=== PATIENT | female | born 1965 | race Two or more races ===

== ENCOUNTER 2020-11-23 14:02 | Outpatient (REF) | payer MEDICAID, SELFPAY ==
[2020-11-23 16:16] LABS: MANUAL DIFF FLAG NO
[2020-11-23 16:21] LABS: Basophils Absolute Auto 0.1 X10*3/uL (0.0-0.2); Basophils Percent Auto 0.6 % (0-2); Eosinophils Absolute Auto 0.2 X10*3/uL (0.0-0.4); Eosinophils Percent Auto 1.6 % (0-4); Hemoglobin 15.3 g/dl (12.0-16.0); Imm Gran Abs Auto 0.04 X10*3/uL (0.00-0.03); Imm Gran Pct Auto 0.4 % (0.0-0.4); Lymphocytes Absolute Auto 3.4 X10*3/uL (1.2-4.9); Lymphocytes Percent Auto 32.3 % (20-40); Mean Corpuscular HGB Conc 33.3 g/dl (31.0-35.0); Mean Corpuscular Hemoglobin 30.5 pg (27.0-33.0); Mean Corpuscular Volume 91.8 fL (80-98); Mean Platelet Volume 10.2 fL (9.4-12.3); Monocytes Absolute Auto 0.5 X10*3/uL (0.1-1.2); Monocytes Percent Auto 5.1 % (2-11); Neutrophils Absolute Auto 6.4 X10*3/uL (2.0-8.3); Platelet Count 340 X10*3/uL (160-400); Red Blood Count 5.01 X10*6/uL (4.20-5.50); Red Cell Distribution Width 12.7 % (11.0-16.0); White Blood Count 10.6 X10*3/uL (4.8-10.8)
[2020-11-23 16:46] LABS: Alanine Aminotransferase 15 U/L (0-31); Albumin Level 4.8 g/dL (3.5-5.0); Alkaline Phosphatase 69 U/L (39-117); Anion Gap 15 (12-20); Aspartate Amino Transferase 15 U/L (5-31); Bilirubin Total 0.7 mg/dL (0.0-1.0); Blood Urea Nitrogen 16 mg/dL (9-16); Calcium 10.4 mg/dL (8.4-10.2); Carbon Dioxide 26 mmol/L (22-29); Chloride 103 mmol/L (96-108); Estimated Glomerular Filt Rate > 60; Glucose Random 90 mg/dL (60-115); Potassium 4.9 mmol/L (3.3-5.1); Sodium 139 mmol/L (135-145); Total Protein 7.7 g/dL (6.5-8.0)
[2020-11-23 17:09] LABS: Thyroid Stimulating Hormone 0.57 uIU/mL (0.32-4.0)
[2020-11-23 18:19] LABS: Erythrocyte Sedimentation Rate 7 MM/HR (0-20)
[2020-11-24 13:26] LABS: Transglutaminase IgA 1 U/mL
[2020-11-29 14:02] LABS: Endomysial IgA Antibody Negative (Negative)
== END 2020-11-23 14:03 | disposition home or self-care (01) ==
LOC: HO.LAB 14:02
PROVIDERS: PCP Family Medicine; Visit Provider Physician Assistant
DX: K52.9 Noninfective gastroenteritis and colitis, unspecified (principal); R10.13 Epigastric pain; K59.09 Other constipation; R74.01 Elevation of levels of liver transaminase levels; A04.8 Other specified bacterial intestinal infections; I10 Essential (primary) hypertension; F32.9 Major depressive disorder, single episode, unspecified; Z88.6 Allergy status to analgesic agent; Z88.5 Allergy status to narcotic agent; Z79.899 Other long term (current) drug therapy
CPT/HCPCS: 36415; 80053; 83516; 84443; 85025; 85652; 86140; 86255; 86256; 99212

== ENCOUNTER 2020-11-23 15:20 | Outpatient (REF) | payer MEDICAID, SELFPAY ==
[2020-11-24 14:37] LABS: H Pylori Breath Test DETECTED (NOT DETECTED)
== END 2020-11-23 15:21 | disposition home or self-care (01) ==
LOC: HO.LNP 15:20
PROVIDERS: Visit Provider Physician Assistant
DX: A04.8 Other specified bacterial intestinal infections (principal)
CPT/HCPCS: 83013

== ENCOUNTER 2020-12-06 11:11 | Emergency (ER) | payer MEDICAID, SELFPAY ==
--- NOTE | ~2020-12-06 | XR_ITS ---
EXAMINATION: XR CHEST CLINICAL INFORMATION: Chest pain COMPARISON: Chest radiographs 03/21/2015, 02/24/2015 TECHNIQUE: 2 views of the chest were obtained. FINDINGS: The lungs are clear. The vascularity is normal. There is no pneumothorax or pleural reaction. No infiltrate or groundglass opacity. The costophrenic sulci are clear. The heart is normal in size. The hilar and mediastinal contours and bony structures are unremarkable. XR/XR chest 2V IMPRESSION: Unremarkable examination.
[2020-12-06 11:17] VITALS: BP 150/70; BP 153/66; PULSE 53; PULSE 60; RESP 18; TEMP 36.8; O2SAT 100; O2SAT 99; BMI 24.7
--- NOTE | 2020-12-06 11:28 | ECG_ITS ---
Test Reason : NAUSEA Blood Pressure : / mmHG Vent. Rate : 066 BPM Atrial Rate : 066 BPM P-R Int : 000 ms QRS Dur : 074 ms QT Int : 404 ms P-R-T Axes : 000 029 032 degrees QTc Int : 423 ms Normal sinus rhythm normal ecg When compared with ECG of 19-MAY-2019 15:25, No significant changes seen Referred By: Jr Woo Electronically Signed By:Papo Johnson
--- NOTE | 2020-12-06 11:30 | ED.GENADULT ---
HPI - General Adult General Chief complaint: Nausea/Vomiting/Diarrhea Stated complaint: N/V/D X'S 3 DAYS, NO CONCERN FOR COVID PER EMS Time Seen by Provider: 12/06/20 11:27 Source: patient Mode of arrival: EMS Limitations: no limitations History of Present Illness HPI narrative: 55-year-old female who presents emergency department for evaluation nausea, vomiting, diarrhea, chest pain and abdominal pain. Patient states that her symptoms began on Saturday, 4 days prior to arrival. She states that she has had multiple episodes of diarrhea per day, greater than 20. The diarrhea is watery and she has not noticed any blood in the diarrhea. She states she has had multiple episodes of vomiting, greater than 15, with no blood in the emesis. She states that she is feeling weak, lightheaded and dizzy. The patient is having diffuse, sharp, burning, constant abdominal pain which is 10/10. She also states she has been getting mild to moderate, intermittent, mid sternal chest pain which does not change with breathing or with movement. She denied fever, chills, frequency, urgency or dysuria. The patient states that she gets these episodes frequently and states she was here in the emergency department 1 week prior however I do not see this record. She states that she applies capsaicin cream to her abdomen which seems to improve her pain. She states she is out of capsaicin cream. The patient did have a GI office visit on 11/23/2020 which states that she had a colonoscopy for half years prior and has a history of gastritis. She has also had H pylori in the past. Related Data Home Medications Medication Instructions Recorded Confirmed atenolol 50 mg tablet 50 mg PO DAILY 11/23/20 11/23/20 bupropion HCl 100 mg tablet 100 mg PO BID 11/23/20 11/23/20 clonazepam 2 mg tablet 2 mg PO BID 11/23/20 11/23/20 quetiapine 400 mg tablet,extended 400 mg PO BEDTIME 11/23/20 11/23/20 release 24 hr Previous Rx's Medication Instructions Recorded bisacodyl 5 mg tablet,delayed 10 mg PO ONCE 1 Days #2 tab 11/23/20 release omeprazole 20 mg capsule,delayed 20 mg PO DAILY #30 cap 11/23/20 release polyethylene glycol 3350 17 238 g PO ONCE 1 Days #238 g 02/24/21 gram/dose oral powder sucralfate 100 mg/mL oral 10 ml PO BID #420 ml 11/23/20 suspension capsaicin 1 appl TOPICAL TID #60 g 12/06/20 Allergies Allergy/AdvReac Type Severity Reaction Status Date / Time ibuprofen [IBUPROFEN] Allergy Severe ANAPHYLAXIS, Verified 11/23/20 14:09 throat swelling aspirin [ASA] Allergy Unknown UNKNOWN, Verified 11/23/20 14:09 throat swelling zolpidem [From AMBIEN] Allergy Unknown RASH, HIVES Verified 11/23/20 14:09 Review of Systems Review of Systems: Yes all other systems are reviewed and are negative [facility] Past Medical History Medical History (Updated 12/06/20 @ 15:18 by Jr Woo MD) Chronic diarrhea Depression Epigastric pain HTN (hypertension) Surgical History H/O tubal ligation History of appendectomy History of hand surgery Family History Family History (Updated 11/23/20 @ 14:14 by Sera Hollins CMA) Father Cancer Mother H/O: hysterectomy Daughter H/O: hysterectomy Paternal Grandfather Stomach cancer Social History Social History (Updated 11/23/20 @ 14:15 by Sera Hollins CMA) Household Members: None Alcohol intake: never Smoking Status: Never smoker Smoked in Last 30 Days: No Use of substances other than those prescribed or required for medical reasons: No Advance Directives: No Advance Directives Information Provided: No Current occupational status: disabled Physical Exam Vital Signs: Vital Signs: Last Vital Signs Temp 99.2 F 12/06/20 12:23 Pulse 60 12/06/20 12:23 Resp 18 12/06/20 12:23 BP 120/53 L 12/06/20 12:23 Pulse Ox 99 12/06/20 12:23 Body Mass Index 24.7 Const: General: cooperative, healthy appearing and in distress (Secondary to abdominal pain) Orientation/consciousness: oriented to person and oriented to place Limitations: no limitations HENMT: Head: Yes normal to inspection, Yes normocephalic and Yes atraumatic Ears: external ears normal General nose exam: Normal external nose present Face and sinus: Yes normal facial exam Mouth: Normal oral and palatal mucosa present Throat: Yes posterior oropharynx normal Eyes: Periorbital: periorbital findings normal Eyelids: Yes eyelids normal Conjunctivae: conjunctivae normal Sclerae: sclerae normal Corneas: corneas normal Pupils: Equal, round and reactive pupils present Direct Ophthalmoscopy: normal light reflex Neck: Neck: Yes full ROM, Yes no lymphadenopathy, Yes no meningeal signs, Yes trachea midline and Yes supple Chest: Chest palpation & inspection: normal inspection of the chest and normal palpation of entire chest wall Resp: Effort & Inspection: normal respiratory effort and able to speak in complete sentences Auscultation: clear to auscultation bilaterally Cardio: Rate: regular rate Rhythm: regular rhythm Heart sounds: S1 normal heart sound present, S2 normal heart sound present and no murmurs GI: Inspection: Yes normal to inspection Palpation (GI): Soft to palpation, Tenderness to palpation present (GI) other (Moderate diffuse tenderness), no guarding, not rigid and No hepatosplenomegaly present Auscultation: normal bowel sounds : General: Yes no CVA tenderness Back/Spine/Pelvis: Back: no CVA tenderness Cervical Spine: normal cervical lordosis Thoracic/Lumbar Spine: thoracic and lumbar spine normal to inspection Skin: Lesions: no lesions Rashes: no rashes Wounds: no wounds Neuro: General: oriented to person, oriented to place and no meningeal signs Cranial nerves: Yes CN's II-XII intact bilaterally and Yes Equal, round and reactive pupils present Cognition (Neuro): normal cognition Motor exam (neuro): 5/5 motor strength present throughout Extrem: General: Yes normal to inspection and Yes full ROM Psych: Appearance: well kempt Mental Status: mental status grossly normal Speech and movement: Normal speech and movement present Affect: normal affect Attitude: cooperative Thought process: Normal thought process present Thought content: Normal thought content present Course Course Course Narrative: 55-year-old female who presents emergency department for evaluation abdominal pain, frequent episodes of diarrhea and vomiting x4 days, patient may have had similar presentations in the past and treats herself with capsaicin cream to her abdominal wall. The patient has had GI follow-up and was seen on 11/23/2019. The patient did have an H pylori breath test from that date which is positive the patient has not been treated yet. On physical examination, the patient does appear to be in distress secondary to abdominal discomfort. She has diffuse abdominal pain otherwise exam is unremarkable. I ordered a CBC, CMP, lipase, COVID test, C difficile test and stool culture on the patient. Patient was ordered to get normal saline IV x1 L. I also ordered morphine 4 mg IV for her pain and, Reglan 10 mg IV, Benadryl 25 mg IV for her nausea and vomiting. 1513: The patient's laboratory evaluation [place] [address], high chloride of 109 and a low bicarb of 21 otherwise was unremarkable. The patient's COVID test was negative. Chest x-ray was normal. The patient was not able to give us a stool sample for testing. The patient is feeling better after the above treatment and wants to go home. The patient will be given a refill for her capsaicin cream to see if this helps her abdominal pain and vomiting. She will continue to take her Zofran as prescribed by her PCP. I did tell her that her H pylori is positive again and she should discuss with her PCP the need for retreatment . Medical Decision Making Lab Data Result diagrams: 12/06/20 11:50 12/06/20 11:50 Labs: Lab Results 12/06/20 12/06/20 12/06/20 Range/Units 11:50 11:50 11:50 WBC 14.5 H (4.8-10.8) X10*3/uL RBC 4.87 (4.20-5.50) X10*6/uL Hgb 14.8 (12.0-16.0) g/dl Hct 44.3 (37-47) % MCV 91.0 (80-98) fL MCH 30.4 (27.0-33.0) pg MCHC 33.4 (31.0-35.0) g/dl RDW 12.6 (11.0-16.0) % Plt Count 320 (160-400) X10*3/uL MPV 10.2 (9.4-12.3) fL Immature Gran % (Auto) 0.4 (0.0-0.4) % Neut % (Auto) 68.9 (45-73) % Lymph % (Auto) 26.2 (20-40) % [place] % (Auto) 4.1 (2-11) % Eos % (Auto) 0.1 (0-4) % Baso % (Auto) 0.3 (0-2) % Lymph # (Auto) 3.8 (1.2-4.9) X10*3/uL [place] # (Auto) 0.6 (0.1-1.2) X10*3/uL Eos # (Auto) 0.0 (0.0-0.4) X10*3/uL Baso # (Auto) 0.0 (0.0-0.2) X10*3/uL Abs Immat Gran (auto) 0.06 H (0.00-0.03) X10*3/uL Absolute Neuts (auto) 10.0 H (2.0-8.3) X10*3/uL Absolute Nucleated RBC 0.000 (0.0-0.012) X10*3/uL Nucleated RBC % (auto) 0.0 (0.0-0.2) /100WBC Sodium 140 (135-145) mmol/L Potassium 4.3 (3.3-5.1) mmol/L Chloride 109 H (96-108) mmol/L Carbon Dioxide 21 L (22-29) mmol/L Anion Gap 14 (12-20) BUN 15 (9-16) mg/dL Creatinine 0.91 (0.5-1.4) mg/dL Estim Creat Clear Calc 63.4 Estimated GFR > 60 Random Glucose 108 (60-115) mg/dL Calcium 9.4 D (8.4-10.2) mg/dL Total Bilirubin 0.5 (0.0-1.0) mg/dL AST 15 (5-31) U/L ALT 14 (0-31) U/L Alkaline Phosphatase 66 (39-117) U/L Troponin I High Sens < 3.5 (<3.5-17.0) ng/L Total Protein 7.1 (6.5-8.0) g/dL Albumin 4.6 (3.5-5.0) g/dL Lipase 27 (8-78) U/L Urine Color Urine Appearance Urine pH (5.0-8.0) Ur Specific [place] (1.005-1.025) Urine Protein (NEG-TRACE) MG/DL Urine Glucose (UA) (NEG) MG/DL Urine Ketones (NEG) MG/DL Urine Blood (NEG) Urine Nitrite (NEG) Ur Leukocyte Esterase (NEG) Urine RBC (0) /HPF Urine WBC (0-4) /HPF Ur Squamous Epith Cells /LPF Amorphous Sediment /LPF Urine Bacteria /LPF COVID-19 (BRENDA) (Negative) COVID-19 Clin Com 12/06/20 12/06/20 Range/Units 11:50 11:53 WBC (4.8-10.8) X10*3/uL RBC (4.20-5.50) X10*6/uL Hgb (12.0-16.0) g/dl Hct (37-47) % MCV (80-98) fL MCH (27.0-33.0) pg MCHC (31.0-35.0) g/dl RDW (11.0-16.0) % Plt Count (160-400) X10*3/uL MPV (9.4-12.3) fL Immature Gran % (Auto) (0.0-0.4) % Neut % (Auto) (45-73) % Lymph % (Auto) (20-40) % [place] % (Auto) (2-11) % Eos % (Auto) (0-4) % Baso % (Auto) (0-2) % Lymph # (Auto) (1.2-4.9) X10*3/uL [place] # (Auto) (0.1-1.2) X10*3/uL Eos # (Auto) (0.0-0.4) X10*3/uL Baso # (Auto) (0.0-0.2) X10*3/uL Abs Immat Gran (auto) (0.00-0.03) X10*3/uL Absolute Neuts (auto) (2.0-8.3) X10*3/uL Absolute Nucleated RBC (0.0-0.012) X10*3/uL Nucleated RBC % (auto) (0.0-0.2) /100WBC Sodium (135-145) mmol/L Potassium (3.3-5.1) mmol/L Chloride (96-108) mmol/L Carbon Dioxide (22-29) mmol/L Anion Gap (12-20) BUN (9-16) mg/dL Creatinine (0.5-1.4) mg/dL Estim Creat Clear Calc Estimated GFR Random Glucose (60-115) mg/dL Calcium (8.4-10.2) mg/dL Total Bilirubin (0.0-1.0) mg/dL AST (5-31) U/L ALT (0-31) U/L Alkaline Phosphatase (39-117) U/L Troponin I High Sens (<3.5-17.0) ng/L Total Protein (6.5-8.0) g/dL Albumin (3.5-5.0) g/dL Lipase (8-78) U/L Urine Color YELLOW Urine Appearance CLOUDY Urine pH 5.0 (5.0-8.0) Ur Specific [place] >= 1.030 H (1.005-1.025) Urine Protein TRACE (NEG-TRACE) MG/DL Urine Glucose (UA) NEG (NEG) MG/DL Urine Ketones NEG (NEG) MG/DL Urine Blood 3+ H (NEG) Urine Nitrite NEG (NEG) Ur Leukocyte Esterase NEG (NEG) Urine RBC 10-14 H (0) /HPF Urine WBC 0 (0-4) /HPF Ur Squamous Epith Cells NONE /LPF Amorphous Sediment 3+ /LPF Urine Bacteria NONE /LPF COVID-19 (BRENDA) Negative (Negative) COVID-19 Clin Com See Note Discharge Plan Discharge Clinical Impression: Abdominal pain Qualifiers: Abdominal location: generalized Qualified Code(s): R10.84 - Generalized abdominal pain Vomiting Qualifiers: Vomiting type: unspecified Vomiting Intractability: non-intractable Nausea presence: with nausea Qualified Code(s): R11.2 - Nausea with vomiting, unspecified Diarrhea Qualifiers: Diarrhea type: unspecified type Qualified Code(s): R19.7 - Diarrhea, unspecified Patient Disposition: Home, Self-Care Instructions: Abdominal Pain (ED) Additional Instructions: Your blood work did reveal an elevated white blood cell count but otherwise was unremarkable. Continue to use your Zofran as prescribed by your doctor. I did represcribed the capsaicin cream, apply this to your abdomen 3 to 4 times a day to see if this improves your pain and her nausea and vomiting. Follow-up with your doctor in 2 days. Please return to the emergency department if your symptoms get worse or if you develop any symptoms that are concerning to you. Prescriptions: New capsaicin 0.025 % cream 1 appl topical TID Qty: 60 RF: 0 No Action atenolol 50 mg tablet 50 mg PO DAILY RF: 0 clonazepam 2 mg tablet 2 mg PO BID RF: 0 bupropion HCl 100 mg tablet 100 mg PO BID RF: 0 quetiapine [Seroquel XR] 400 mg tablet extended release 24 hr 400 mg PO BEDTIME RF: 0 polyethylene glycol 3350 [Miralax] 17 gram/dose powder 238 g PO ONCE 1 Days Qty: 238 RF: 0 bisacodyl [Dulcolax (bisacodyl)] 5 mg tablet,delayed release (DR/EC) 10 mg PO ONCE 1 Days Qty: 2 RF: 0 omeprazole 20 mg capsule,delayed release(DR/EC) 20 mg PO DAILY Qty: 30 RF: 5 sucralfate [Carafate] 100 mg/mL suspension 10 ml PO BID Qty: 420 RF: 0
[2020-12-06] MEDS: 0.9 % Sodium Chloride 1,000 ML 999 ML IV (11:37)
[2020-12-06 12:08] LABS: MANUAL DIFF FLAG NO
[2020-12-06 12:13] LABS: Basophils Percent Auto 0.3 % (0-2); Eosinophils Percent Auto 0.1 % (0-4); Hematocrit 44.3 % (37-47); Hemoglobin 14.8 g/dl (12.0-16.0); Imm Gran Abs Auto 0.06 X10*3/uL (0.00-0.03); Imm Gran Pct Auto 0.4 % (0.0-0.4); Lymphocytes Absolute Auto 3.8 X10*3/uL (1.2-4.9); Lymphocytes Percent Auto 26.2 % (20-40); Mean Corpuscular HGB Conc 33.4 g/dl (31.0-35.0); Mean Corpuscular Hemoglobin 30.4 pg (27.0-33.0); Mean Platelet Volume 10.2 fL (9.4-12.3); Monocytes Absolute Auto 0.6 X10*3/uL (0.1-1.2); Monocytes Percent Auto 4.1 % (2-11); Neutrophils Percent Auto 68.9 % (45-73); Platelet Count 320 X10*3/uL (160-400); Red Blood Count 4.87 X10*6/uL (4.20-5.50); Red Cell Distribution Width 12.6 % (11.0-16.0); White Blood Count 14.5 X10*3/uL (4.8-10.8)
[2020-12-06] MEDS: diphenhydrAMINE HCL 50 MG/ML VIAL 25 MG IVPUSH (12:19)
[2020-12-06] MEDS: Morphine Sulfate 4 MG/ML CARTRIDGE IVPUSH (12:19)
[2020-12-06] MEDS: Metoclopramide HCl 10 MG/2 ML VIAL IVPUSH (12:19)
[2020-12-06 12:21] LABS: Glucose Urine UA NEG (NEG); Leukocyte Esterase Urine NEG (NEG); Nitrite Urine NEG (NEG); Specific Gravity - Urine >= 1.030 (1.005-1.025); Urine Blood 3+ (NEG); Urine Ketones NEG (NEG); Urine Protein TRACE MG/DL (NEG-TRACE)
[2020-12-06 12:23] VITALS: BP 120/53; PULSE 60; RESP 18; TEMP 37.3; O2SAT 99
[2020-12-06 12:23] LABS: Appearance Urine CLOUDY; Color Urine YELLOW
[2020-12-06 12:36] LABS: Alanine Aminotransferase 14 U/L (0-31); Albumin Level 4.6 g/dL (3.5-5.0); Alkaline Phosphatase 66 U/L (39-117); Aspartate Amino Transferase 15 U/L (5-31); Bilirubin Total 0.5 mg/dL (0.0-1.0); Blood Urea Nitrogen 15 mg/dL (9-16); Calcium 9.4 mg/dL (8.4-10.2); Creatinine Clr Calc Pharmacy 63.4; Estimated Glomerular Filt Rate > 60; Glucose Random 108 mg/dL (60-115); Lipase 27 U/L (8-78); Total Protein 7.1 g/dL (6.5-8.0)
[2020-12-06 12:40] LABS: COVID-19 Test Negative (Negative); IDNOW Serial# 9DD0AD1C
[2020-12-06 12:41] LABS: Troponin-I High Sensitivity < 3.5 ng/L (<3.5-17.0)
[2020-12-06 12:46] LABS: Amorphous Sediment Urine 3+ /LPF; WBC Urine 0 /HPF (0-4)
[2020-12-06 13:15] LABS: Anion Gap 14 (12-20); Carbon Dioxide 21 mmol/L (22-29); Chloride 109 mmol/L (96-108); Potassium 4.3 mmol/L (3.3-5.1); Sodium 140 mmol/L (135-145)
--- NOTE | 2020-12-06 13:37 | PC.NURSE ---
reports feeling better after medications. no longer dry heaving. has not had a BM for sample. MD is aware of need for reeval. Skin pwd. diffuse abd pain is resolving.
== END 2020-12-06 15:52 | disposition home or self-care (01) ==
PROVIDERS: Emergency Provider Emergency Medicine Emergency Medical Services; PCP Family Medicine
DX: R10.84 Generalized abdominal pain (principal); R19.7 Diarrhea, unspecified; R11.2 Nausea with vomiting, unspecified; Z20.822 Contact with and (suspected) exposure to COVID-19
CPT/HCPCS: 36415; 71046; 80053; 81001; 83690; 84484; 85025; 87635; 93005; 96365; 96375; 99284; J1200; J2270; J2765

== ENCOUNTER 2020-12-07 16:32 | Outpatient (REF) | payer MEDICAID, SELFPAY ==
[2020-12-07 17:20] LABS: Leukocytes Stool Qualitative NEGATIVE (NEGATIVE)
[2020-12-08 09:23] LABS: CDIFF Ag Negative (Negative); CDIFF Internal ctrl Dots and bkg OK (V); CDiff Toxin Negative (Negative)
[2020-12-13 20:17] LABS: Calprotectin, Fecal 40 mcg/g
== END 2020-12-07 16:33 | disposition home or self-care (01) ==
LOC: HO.LNP 16:32
PROVIDERS: Visit Provider Physician Assistant
DX: R19.7 Diarrhea, unspecified (principal)
CPT/HCPCS: 83993; 87045; 87046; 87324; 87329; 87449; 89055

== ENCOUNTER → 2020-12-08 07:31 | Outpatient (BNVA) | payer MEDICAID, SELFPAY | PROVIDERS: Visit Provider Physician Assistant | DX: R10.13 Epigastric pain (principal); R11.2 Nausea with vomiting, unspecified; K52.9 Noninfective gastroenteritis and colitis, unspecified; A04.8 Other specified bacterial intestinal infections | CPT/HCPCS: 99212 ==

== ENCOUNTER 2020-12-20 11:42 | Outpatient (REF) | payer MEDICAID, SELFPAY ==
--- NOTE | ~2020-12-20 | MM_ITS ---
EXAMINATION: MM SCREENING DIGITAL BREAST TOMOSYNTHESIS, BILATERAL CLINICAL INFORMATION: Screening. Asymptomatic. The lifetime risk of breast cancer based on the Tyrer-Cuzick Model is 9%. COMPARISON: Mammography: 12/15/2019, 09/10/2018, 08/29/2018, 03/27/2017 TECHNIQUE: Digital breast tomosynthesis is performed in both the craniocaudal and mediolateral oblique views along with computer-aided detection (CAD). Synthesized 2D images are generated from the tomosynthesis. FINDINGS: There are scattered areas of fibroglandular density (ACR BI-RADS breast composition Category b). There are no significant masses, abnormal calcifications, or other abnormalities. The axilla and skin contours are unremarkable. No significant changes. MM/MM tomosynthesis screening BI IMPRESSION: No mammographic evidence of malignancy. ASSESSMENT: BI-RADS 1: Negative RECOMMENDATION: Routine annual mammography screening. This patient's information was entered into a reminder system with a target due date for their next mammogram.
== END 2020-12-20 11:43 | disposition home or self-care (01) ==
LOC: HO.MAMMO 11:42
PROVIDERS: PCP Family Medicine; Visit Provider Family Medicine
DX: Z12.31 Encounter for screening mammogram for malignant neoplasm of breast (principal)
CPT/HCPCS: 77063; 77067

== ENCOUNTER 2020-12-28 09:33 | Day surgery (SDC) | payer MEDICAID, SELFPAY ==
[2020-12-23 10:09] VITALS: BMI 23.4
--- NOTE | 2020-12-27 08:28 | HO.ANESPROP2 ---
Documented by User: Jaja Alvarado 12/27/20 08:29 HPI - Anesthesia Eval Consult details Narrative: 55yo F for Upper Endoscopy and Colonoscopy PMFSH Active Problems Active Problems: All Active Problems (Updated 12/23/20 @ 10:05 by Malka Ruiz) Nausea and vomiting (Acute) H. pylori infection (Acute) Depression (Acute) HTN (hypertension) (Acute) Epigastric pain (Acute) Chronic diarrhea (Acute) Past Medical History Medical History Anxiety Chronic diarrhea Depression Epigastric pain HTN (hypertension) Family History Family History (Updated 11/23/20 @ 14:14 by Sera Hollins CMA) Father Cancer Mother H/O: hysterectomy Daughter H/O: hysterectomy Paternal Grandfather Stomach cancer Surgical History Surgical History H/O tubal ligation History of appendectomy History of carpal tunnel release of both wrists Social History Social History (Updated 12/23/20 @ 10:06 by Malka Ruiz) Household Members: None Smoking Status: Former smoker Smoking Quit Date: 2009 Use of substances other than those prescribed or required for medical reasons: No Advance Directives: No Advance Directives Information Provided: No Advance Directives on File: No Current occupational status: disabled Meds Allergies Allergy/AdvReac Type Severity Reaction Status Date / Time aspirin [ASA] Allergy Severe Anaphylaxis Verified 12/23/20 10:07 ibuprofen [IBUPROFEN] Allergy Severe ANAPHYLAXIS, Verified 12/23/20 10:07 throat swelling zolpidem [From AMBIEN] Allergy Intermediate RASH, HIVES Verified 12/23/20 10:07 Home Medications Medication Instructions Recorded Confirmed Last Taken Type clonazepam 2 mg tablet 2 mg PO BID 11/23/20 12/23/20 Unknown History quetiapine 400 mg tablet,extended 400 mg PO BEDTIME 11/23/20 12/23/20 Unknown History release 24 hr atenolol 1 tab PO DAILY 12/23/20 12/28/20 12/28/20 08:00 History Exam Exam Date and Time: December 27, 2020 0828 Height,Weight and Vital Signs: Height 5 ft Weight 54.431 kg Pertinent Lab Results Pertinent Lab Results: Laboratory Tests 12/06/20 12/06/20 11:50 11:50 WBC 14.5 H Hgb 14.8 Hct 44.3 Plt Count 320 Sodium 140 Potassium 4.3 Chloride 109 H Carbon Dioxide 21 L BUN 15 Creatinine 0.91 Narrative Narrative: EKG 11/2020 Vent. Rate : 066 BPM Atrial Rate : 066 BPM P-R Int : 000 ms QRS Dur : 074 ms QT Int : 404 ms P-R-T Axes : 000 029 032 degrees QTc Int : 423 ms Normal sinus rhythm normal ecg When compared with ECG of 19-MAY-2019 15:25, No significant changes seen Assessment and Plan Assessment Anesthesia Assessment: Chart Reviewed Documented by User: Margie Trujillo 12/28/20 10:14 [facility] Past Medical History Medical History Anxiety Chronic diarrhea Depression Epigastric pain HTN (hypertension) Family History Family History (Updated 11/23/20 @ 14:14 by Sera Hollins CMA) Father Cancer Mother H/O: hysterectomy Daughter H/O: hysterectomy Paternal Grandfather Stomach cancer Surgical History Surgical History H/O tubal ligation History of appendectomy History of carpal tunnel release of both wrists Social History Social History (Updated 12/23/20 @ 10:06 by Malka Ruiz) Household Members: None Smoking Status: Former smoker Smoking Quit Date: 2009 Use of substances other than those prescribed or required for medical reasons: No Advance Directives: No Advance Directives Information Provided: No Advance Directives on File: No Current occupational status: disabled Meds Allergies Allergy/AdvReac Type Severity Reaction Status Date / Time aspirin [ASA] Allergy Severe Anaphylaxis Verified 12/23/20 10:07 ibuprofen [IBUPROFEN] Allergy Severe ANAPHYLAXIS, Verified 12/23/20 10:07 throat swelling zolpidem [From AMBIEN] Allergy Intermediate RASH, HIVES Verified 12/23/20 10:07 Home Medications Medication Instructions Recorded Confirmed Last Taken Type clonazepam 2 mg tablet 2 mg PO BID 11/23/20 12/23/20 Unknown History quetiapine 400 mg tablet,extended 400 mg PO BEDTIME 11/23/20 12/23/20 Unknown History release 24 hr atenolol 1 tab PO DAILY 12/23/20 12/28/20 12/28/20 08:00 History Exam Airway Mallampati Class: III TM Dist: >3cm Neck ROM: Full Denture: Upper Heart: RrR Lungs: CTA Bl Assessment and Plan Assessment Anesthesia Assessment: Anesthesia Plan Discussed and Chart Reviewed Final Anesthetic Review NPO: Yes (Sip water with meds) ASA Class: II Final Preanesthetic Review: No Changes in Pt Med Stat and Consent Obtained/Reviewed Patient Risk: Intermediate Procedure Risk: Intermediate Anesthetic Plan Anesthetic Plan: MAC: Disposition: Standard PACU
[2020-12-28 09:59] VITALS: BP 134/66; PULSE 56; RESP 16; TEMP 35.9; O2SAT 99
[2020-12-28] MEDS: Lactated Ringers 1,000 ML 100 ML IVCONT (10:05)
--- NOTE | 2020-12-28 10:14 | MHC.SHP ---
Pre-Procedural Eval Section B Chief Complaint: Chronic Diarrhea, Epigastric Pain Relevant Family History (Specify if Yes): No Relevant Social History: None Present Medications: see Short Stay Collaborative assessment Medical History: Significant History (Anxiety Chronic diarrhea Depression Epigastric pain HTN (hypertension)) History of Previous Operations: Relevant previous surgery/procedure and date(s) (appendectomy, carpal tunnel release) Allergies: Allergies Allergy/AdvReac Type Severity Reaction Status Date / Time aspirin [ASA] Allergy Severe Anaphylaxis Verified 12/23/20 10:07 ibuprofen [IBUPROFEN] Allergy Severe ANAPHYLAXIS, Verified 12/23/20 10:07 throat swelling zolpidem [From AMBIEN] Allergy Intermediate RASH, HIVES Verified 12/23/20 10:07 Review of Systems Sugical H&P ROS: Negative: Constitution, Cardiovascular, Respiratory, Neurological, Psychiatric, Hem-Onc, Allergic/Immunologic, Gastrointestinal, Genitourinary, Musculoskeletal, Integumentary, Endocrine and Eyes/Ears/Nose/Throat Exam Surgical H&P Exam: Normal: HEENT, Normal: Heart, Normal: Lungs, Normal: Extremities, Normal: Abdomen, Normal: Skin and Normal: Neurological Plan Diagnosis/Plan: Unchanged I have reviewed the history and physical and performed a pertinent physical examination on my patient. No changes have occurred unless specified.
--- NOTE | 2020-12-28 10:43 | PM.OP ---
Brief Operative Note Date of Service: 12/28/20 Pre-op diagnosis: diarrhea, epigastric pain Post-op diagnosis: same Procedure: see op note Surgeon: Karine Quinonez MD Anesthesia: MAC Estimated blood loss (mL): 0 Condition: stable Disposition: PACU
--- NOTE | 2020-12-28 10:44 | P.OP_ITS ---
Operative Note Operative Note Date of Service: 12/28/20 Narrative: Operative Information Procedure Description: EGD, Colonoscopy FLEXIBLE TRANSORAL UPPER GASTROINTESTINAL ENDOSCOPY AND COLONOSCOPY PROCEDURE NOTE UPPER ENDOSCOPY Consent: Indications for the procedure and potential complications of bleeding, perforation, reaction to medications and missed diagnosis were discussed with the patient and informed consent was obtained. Instrument: Olympus GIF H 190 J mid size upper endoscope Monitoring: Vital signs and clinical assessment, continuous EKG monitoring, Pulse oximetry, Carbon Dioxide monitoring and blood pressure monitoring were done throughout the procedure. Procedure: The patient was placed in the left lateral decubitis position and pre-procedure medications were administered and a bite block was placed. The endoscope was inserted into the mouth and advanced under direct vision to the third part of duodenum. A careful inspection was made as the upper endoscope was withdrawn including a retroflexed examination of the proximal stomach; Findings and interventions are described below. Findings: Larynx:normal Esophagus: GE junction at 37 cm, diaphragm hiatus at 37 cm, mild esophagitis noted with possible short segment barretts, bx taken from GEJ and random esophagus Stomach: Patchy erythema and inflammation. Biopsies were obtained. Grade 2 flap valve on retroflexed examination of the cardia. Duodenum: mild bulbar duodenitis, bx taken Intervention: Biopsies as noted above COLONOSCOPY Instrument: Olympus variable stiffness pediatric scope 190L Colonoscopy Monitoring: Vital signs and clinical assessment, continuous EKG monitoring, Pulse oximetry, Carbon Dioxide monitoring and blood pressure monitoring were done throughout the procedure. Colon withdrawal time was 16 minutes. Procedure: The patient was placed in the left lateral decubitis position and pre-procedure medications were administered. After a digital rectal examination of the ano-rectum, the video colonoscope was inserted into the rectum and advanced through the colon to the cecum/TI. The colonoscope was slowly withdrawn in a retrograde panoramic fashion and the colon mucosa was carefully examined including a retroflexed view of the rectum. Findings and interventions are described below. Procedure Difficulty:easy Findings: random colon and TI bx taken Terminal Ileum-normal Cecum:10-14 mm sessile polyp in cecum injected with ORISe and then removed with cold snare Ascending Colon: normal Transverse Colon -normal Descending Colon:normal Sigmoid Colon: normal Rectum: Retroflexion with small internal hemorrhoids, grade I, 7-8 mm sessile polyp removed with forceps. Anorectum - normal Colon preparation: [place] Bowel Preparation Scale Right colon; 3 Transverse colon: 3 Left colon; 3 (0 = Unprepared colon segment with mucosa not seen due to solid stool that cannot be cleared. 1 = Portion of mucosa of the colon segment seen, but other areas of the colon segment not well seen due to staining, residual stool and/or opaque liquid. 2 = Minor amount of residual staining, small fragments of stool and/or opaque liquid, but mucosa of colon segment seen well. 3 = Entire mucosa of colon segment seen well with no residual staining, small fragments of stool or opaque liquid) Impression and Post Procedure Diagnosis: Endoscopy Findings: gastritis duodenitis esophagitis, possible barretts Colonoscopy Findings: polyps internal hemorrhoids Plan: Await Pathology results Repeat Colonoscopy in 5-7 years or earlier if clinically indicated High fiber diet leaflet avoid straining at stool, epsom salts and sitz bath, anusol supps or cream prn if bx neg for microscopic colitis and enteropathy then check for other causes of diarrhea incl c diff, panc insuff, SIBO, etc treat h pylori Above findings were reviewed with the patient and relevant handouts were provided if indicated.
[2020-12-28 11:10] VITALS: BP 83/48; PULSE 71; RESP 16; TEMP 35.8; O2SAT 98
[2020-12-28 11:15] VITALS: BP 106/64
[2020-12-28 11:25] VITALS: BP 134/75; PULSE 61; RESP 18; O2SAT 100
[2020-12-28 11:40] VITALS: BP 145/88; PULSE 72; RESP 18; TEMP 36.6; O2SAT 100
== END 2020-12-28 12:19 | disposition home or self-care (01) ==
PROVIDERS: PCP Family Medicine; Visit Provider Internal Medicine Gastroenterology
PROC: (CPT 45380; principal; 2020-12-28 10:00)
DX: K52.9 Noninfective gastroenteritis and colitis, unspecified (principal); D12.0 Benign neoplasm of cecum; K62.1 Rectal polyp; K64.0 First degree hemorrhoids; K29.50 Unspecified chronic gastritis without bleeding; B96.81 Helicobacter pylori [H. pylori] as the cause of diseases classified elsewhere; K29.80 Duodenitis without bleeding; K20.90 Esophagitis, unspecified without bleeding; I10 Essential (primary) hypertension; F32.9 Major depressive disorder, single episode, unspecified; Z79.899 Other long term (current) drug therapy; Z88.8 Allergy status to other drugs, medicaments and biological substances
CPT/HCPCS: 45380; 45381; 43239; 88305; 88342

== ENCOUNTER → 2021-01-09 07:37 | Outpatient (BNVA) | payer MEDICAID, SELFPAY | PROVIDERS: Visit Provider Physician Assistant ==

== ENCOUNTER 2021-02-24 14:55 | Inpatient (IN) | payer MEDICAID, SELFPAY ==
[2021-02-24] VITALS (8 sets, daily range): BP systolic 102–131; BP diastolic 54–67; PULSE 90–120; RESP 17–31; TEMP 36.4–37.8; O2SAT 96–98; BMI 24.6
--- NOTE | ~2021-02-24 | US_ITS ---
EXAMINATION: US RETROPERITONEAL LIMITED (RENAL ONLY) CLINICAL INFORMATION: Hematuria. COMPARISON: CT of the abdomen and pelvis September 2018 TECHNIQUE: Grayscale and color imaging of the kidneys FINDINGS: RIGHT KIDNEY: 9.4 x 4.7 x 4.4 cm (SAG x AP x TRV). The kidney is normal in size, contour, and echogenicity. Renal cortical thickness is normal. No calculi or focal parenchymal lesions. No hydronephrosis. LEFT KIDNEY: 9.7 x 4.7 x 4.2 cm (SAG x AP x TRV). The kidney is normal in size, contour, and echogenicity. Renal cortical thickness is normal. There is a 2.2 x 2.1 x 2 cm cyst in the midpole. No calculi or mass. No hydronephrosis. US/US renal BI IMPRESSION: Left renal cyst otherwise unremarkable exam.
--- NOTE | ~2021-02-24 | XR_ITS ---
EXAMINATION: XR CHEST CLINICAL INFORMATION: Shortness of breath and wheezing. COMPARISON: Prior chest radiographs, most recently 12/16/2020; CT chest dated 08/05/2015. TECHNIQUE: Frontal view of the chest was obtained. FINDINGS: The heart, great vessels, pulmonary vasculature mediastinum are normal. There is mild left base airspace disease, with partial silhouetting of the lower left cardiac border. There is can be more fully evaluated with a lateral view. There is only a small left pericardial fat pad seen on the CT examination of 08/05/2015. The right lung appears clear. There is no pleural effusion or pneumothorax. No acute osseous abnormality is seen. XR/XR chest 1V IMPRESSION: A mild left base patchy infiltrate is seen, which can be more fully evaluated with a lateral view, if clinically indicated.
--- NOTE | 2021-02-24 15:12 | ECG_ITS ---
Test Reason : DYSPNEA Blood Pressure : / mmHG Vent. Rate : 106 BPM Atrial Rate : 106 BPM P-R Int : 128 ms QRS Dur : 068 ms QT Int : 328 ms P-R-T Axes : 053 025 032 degrees QTc Int : 435 ms Sinus tachycardia Otherwise normal ECG When compared with ECG of 06-DEC-2020 11:38, Vent. rate has increased BY 40 BPM Referred By: Brigida Estevez Electronically Signed By:EMELYN STOKES
--- NOTE | 2021-02-24 15:32 | ED.ASTHMA ---
HPI - Asthma General Chief Complaint: Asthma <FLORENCIA Mota Last Filed: 02/24/21 17:17> Stated Complaint: asthma type symptoms <FLORENCIA Mota Last Filed: 02/24/21 17:17> Time Seen by Provider: 02/24/21 15:11 <FLORENCIA Mota Last Filed: 02/24/21 17:17> Source: patient and EMS <FLORENCIA Mota Last Filed: 02/24/21 17:17> Mode of arrival: EMS <FLORENCIA Mota Last Filed: 02/24/21 17:17> Limitations: no limitations <FLORENCIA Mota Last Filed: 02/24/21 17:17> History of Present Illness HPI Narrative: 55 y/o female with history of asthma, depression, H. pylori, HTN, gastritis, anxiety who presents to the ER with acute onset of asthma attack that started at 5am this morning. She states she felt short of breath, anxious and wheezy. She was recently started on a prednisone taper by [facility] about a week and a half ago. She took her 20 mg of prednisone as well as her inhalers. She also tried her granddaughter's nebulizer without improvement. She was breathing rapidly and reported numbness in her hands and feet. She could not get up out of bed so she called 911. On EMS transport her HR was up into the 160's. She reports palpitations and anxiety. She also reports intermittent chest pain and dry cough. Pain is worse with coughing. She is fully vaccinated against COVID-19. <FLORENCIA Mota Last Filed: 02/24/21 17:17> MD complaint: asthma attack <FLORENCIA Mota Last Filed: 02/24/21 17:17> Onset (ago): hour(s) (9) <FLORENCIA Mota Last Filed: 02/24/21 17:17> Severity: worse than usual <FLORENCIA Mota Last Filed: 02/24/21 17:17> Context: none known <FLORENCIA Mota Last Filed: 02/24/21 17:17> Associated symptoms: dry cough and chest pain <FLORENCIA Mota Last Filed: 02/24/21 17:17> Treatments Prior to Arrival: inhaled bronchodilator <FLORENCIA Mota Last Filed: 02/24/21 17:17> Related Data Current Asthma Therapy: inhaled bronchodilator and inhaled steroid <FLORENCIA Mota Last Filed: 02/24/21 17:17> Home Medications: Home Medications Medication Instructions Recorded Confirmed clonazepam 2 mg tablet 2 mg PO DAILY 11/23/20 02/24/21 quetiapine 400 mg tablet,extended 400 mg PO BEDTIME 11/23/20 02/24/21 release 24 hr atenolol 25 mg PO DAILY 12/23/20 02/24/21 albuterol sulfate [ProAir HFA] 2 puff INHALATION Q4H PRN 02/24/21 02/24/21 cholecalciferol (vitamin D3) 25 mcg PO DAILY 02/24/21 02/24/21 [Vitamin D3] fluoxetine 10 mg PO DAILY 02/24/21 02/24/21 hydroxyzine HCl 50 mg PO TID 02/24/21 02/24/21 mometasone-formoterol [Dulera] 2 puff INHALATION BID 02/24/21 02/24/21 omeprazole 20 mg PO DAILY@0630 02/24/21 02/24/21 <FLORENCIA Mota Last Filed: 02/24/21 17:17> Allergies/Adverse Reactions: Allergies Allergy/AdvReac Type Severity Reaction Status Date / Time aspirin [ASA] Allergy Severe Anaphylaxis Verified 01/09/21 07:38 ibuprofen [IBUPROFEN] Allergy Severe ANAPHYLAXIS, Verified 01/09/21 07:38 throat swelling zolpidem [From AMBIEN] Allergy Intermediate RASH, HIVES Verified 01/09/21 07:38 <FLORENCIA Mota Last Filed: 02/24/21 17:17> Review of Systems Review of Systems: Constitutional: No Fever, No Chills ENT/Mouth: No sore throat, No Rhinorrhea, No Swallowing Difficulty Eyes: No Eye Pain, No Swelling, No Redness Cardiovascular: + Chest Pain, + SOB, No Orthopnea, No Edema Respiratory: + Cough, No Sputum, +Wheezing, + dyspnea Gastrointestinal: + Nausea, No Vomiting, No Diarrhea, No abdominal Pain, No Hematochezia, No Melena Genitourinary: No Dysuria, No Urinary Frequency, No Hematuria Musculoskeletal: No joint pain, + Myalgias Skin: No Skin Lesions, No rash Neuro: + Weakness, + Numbness, No Dizziness, + Headache Psych: + Anxiety/Panic, No Depression Heme/Lymph: No Bruising, No Lymphadenopathy Endocrine: No Polyuria, No Polydipsia <FLORENCIA Mota - Last Filed: 02/24/21 17:17> [facility] Past Medical History Attestation statement: The following information was validated with the patient. <FLORENCIA Mota - Last Filed: 02/24/21 17:17> Medical History: Medical History Anxiety Chronic diarrhea Depression Epigastric pain HTN (hypertension) <FLORENCIA Mota - Last Filed: 02/24/21 17:17> Surgical History: Surgical History H/O tubal ligation History of appendectomy History of carpal tunnel release of both wrists Hx of colonoscopy <FLORENCIA Mota - Last Filed: 02/24/21 17:17> Family History Family History: Family History Father Cancer Mother H/O: hysterectomy Daughter H/O: hysterectomy Paternal Grandfather Stomach cancer <FLORENCIA Mota - Last Filed: 02/24/21 17:17> Social History Social History: Social History Household Members: None Alcohol intake: former Patient Tobacco Use Status: Former Tobacco user Smoked in Last 30 Days: No Use of substances other than those prescribed or required for medical reasons: No Advance Directives: No Advance Directives Information Provided: Yes Patient : No Current occupational status: disabled <FLORENCIA Mota - Last Filed: 02/24/21 17:17> Physical Exam Vital Signs: Vital Signs: Last Vital Signs Temp 100.0 F 02/24/21 15:08 Pulse 91 02/24/21 17:10 Resp 20 02/24/21 17:10 BP 109/54 L 05/28/21 17:39 Pulse Ox 97 02/24/21 17:10 Body Mass Index 24.6 Appearance: Alert. Oriented X3. No acute distress. Eyes: Pupils equal, round and reactive to light. ENT: Pharynx normal. Neck: Normal inspection. Neck supple. CVS: Tachycardic regular rhythm. Pulses normal. Respiratory: Mild respiratory distress with increased RR. Breath sounds diminished throughout, +bronchospasm with dry cough, mild end expiratory wheeze in RUL. Abdomen: Soft and nontender. +BS x4 Skin: Skin warm and dry. Normal skin color. Normal skin turgor. No rashes. Extremities: No lower extremity edema. Negative Joni's sign. Neuro: Oriented X 3. No motor deficit. No sensory deficit. <FLORENCIA Mota - Last Filed: 02/24/21 17:17> Vital Signs: Last Vital Signs Temp 100.0 F 02/24/21 15:08 Pulse 91 02/24/21 17:10 Resp 20 02/24/21 17:10 BP 109/54 L 02/24/21 17:39 Pulse Ox 97 02/24/21 17:10 Body Mass Index 24.6 <Puja Patiño NP - Last Filed: 02/24/21 19:47> Course Course Course Narrative: 55 y/o female presenting with SOB that started this morning when she woke up at 5am. Already on prednisone taper. Tachycardic and tachypneic on arrival, with only mild wheezing on exam. Suspect anxiety contributing, took her klonopin this morning. Given chest pain and SOB will check DDIMER, EKG, CXR, and labs. PO ativan ordered. PO tylenol for low grade fever 100. Covid ordered as well. Dispo pending results and improvement. <FLORENCIA Mota - Last Filed: 02/24/21 17:17> Suspicious for pneumonia, lactic acid is 2.2 has had multiple albuterol neb treatments, white count elevated at 16.3, while patient has been on prednisone and this is more likely a prednisone induced leukocytosis, Discussion with hospitalist at 7:20 p.m., plan of care is to admit for pneumonia and UTI. <Puja Patiño NP - Last Filed: 02/24/21 19:47> Reevaluation(s) Reevaluation #1: CXR with left base opacity. WBC 16K, likely related to being on steroids. Will treat for possible CAP with IV rocephin and azithromycin and IVF. DDIMER <200 Signed out to Puja IVAN who will assume care. <FLORENCIA Mota - Last Filed: 02/24/21 17:17> Consultations Consultation #1: Devimyahni <Puja Patiño NP - Last Filed: 02/24/21 19:47> Time: 19:25 <Puja Patiño NP - Last Filed: 02/24/21 19:47> MDM - Asthma Differential Diagnosis Differential diagnosis: Likely Acute exacerbation, Status asthmaticus, Acute asthmatic bronchitis, PE, Pneumonia, COPD exacerbation, ARDS and Pneumothorax <FLORENCIA Mota - Last Filed: 02/24/21 17:17> Lab Data Result diagrams: : 02/24/21 16:10 02/24/21 16:09 <FLORENCIA Mota - Last Filed: 02/24/21 17:17> Labs: Lab Results 02/24/21 02/24/21 02/24/21 Range/Units 16:09 16:09 16:10 WBC 16.3 H (4.8-10.8) X10*3/uL RBC 4.54 (4.20-5.50) X10*6/uL Hgb 13.7 (12.0-16.0) g/dl Hct 40.7 (37-47) % MCV 89.6 (80-98) fL MCH 30.2 (27.0-33.0) pg MCHC 33.7 (31.0-35.0) g/dl RDW 12.5 (11.0-16.0) % Plt Count 308 (160-400) X10*3/uL MPV 9.8 (9.4-12.3) fL Immature Gran % (Auto) 0.4 (0.0-0.4) % Neut % (Auto) 82.3 H (45-73) % Lymph % (Auto) 10.8 L (20-40) % [place] % (Auto) 5.6 (2-11) % Eos % (Auto) 0.7 (0-4) % Baso % (Auto) 0.2 (0-2) % Lymph # (Auto) 1.8 (1.2-4.9) X10*3/uL [place] # (Auto) 0.9 (0.1-1.2) X10*3/uL Eos # (Auto) 0.1 (0.0-0.4) X10*3/uL Baso # (Auto) 0.0 (0.0-0.2) X10*3/uL Abs Immat Gran (auto) 0.06 H (0.00-0.03) X10*3/uL Absolute Neuts (auto) 13.4 H (2.0-8.3) X10*3/uL Absolute Nucleated RBC 0.000 (0.0-0.012) X10*3/uL Nucleated RBC % (auto) 0.0 (0.0-0.2) /100WBC D-Dimer NG/ML Sodium 138 (135-145) mmol/L Potassium 4.9 (3.3-5.1) mmol/L Chloride 103 (96-108) mmol/L Carbon Dioxide 26 (22-29) mmol/L Anion Gap 14 (12-20) BUN 13 (9-16) mg/dL Creatinine 0.91 (0.5-1.4) mg/dL Estim Creat Clear Calc 53.6 Estimated GFR > 60 Random Glucose 86 (60-115) mg/dL Lactic Acid (0.5-2.0) mmol/L Calcium 10.1 D (8.4-10.2) mg/dL Magnesium 2.3 (1.6-2.6) mg/dL Total Bilirubin 0.7 (0.0-1.0) mg/dL Direct Bilirubin 0.3 (0.0-0.5) mg/dL AST 19 (5-31) U/L ALT 23 (0-31) U/L Alkaline Phosphatase 71 (39-117) U/L Troponin I High Sens (<3.5-17.0) ng/L B-Natriuretic Peptide (<100) pg/mL Total Protein 7.2 (6.5-8.0) g/dL Albumin 4.5 (3.5-5.0) g/dL Lipase 5 L (8-78) U/L Urine Color Urine Appearance Urine pH (5.0-8.0) Ur Specific [place] (1.005-1.025) Urine Protein (NEG-TRACE) MG/DL Urine Glucose (UA) (NEG) MG/DL Urine Ketones (NEG) MG/DL Urine Blood (NEG) Urine Nitrite (NEG) Ur Leukocyte Esterase (NEG) Urine RBC (0) /HPF Urine WBC (0-4) /HPF Ur Squamous Epith Cells /LPF Urine Bacteria /LPF Urine Opiates Screen (Not Detect) Ur Barbiturates Screen (Not Detect) Ur Phencyclidine Scrn (Not Detect) Ur Amphetamines Screen (Not Detect) U Benzodiazepines Scrn (Not Detect) Urine Cocaine Screen (Not Detect) U Marijuana (THC) Screen (Not Detect) COVID-19 (BRENDA) (Negative) COVID-19 Clin Com 02/24/21 02/24/21 02/24/21 Range/Units 16:10 16:11 16:26 WBC (4.8-10.8) X10*3/uL RBC (4.20-5.50) X10*6/uL Hgb (12.0-16.0) g/dl Hct (37-47) % MCV (80-98) fL MCH (27.0-33.0) pg MCHC (31.0-35.0) g/dl RDW (11.0-16.0) % Plt Count (160-400) X10*3/uL MPV (9.4-12.3) fL Immature Gran % (Auto) (0.0-0.4) % Neut % (Auto) (45-73) % Lymph % (Auto) (20-40) % [place] % (Auto) (2-11) % Eos % (Auto) (0-4) % Baso % (Auto) (0-2) % Lymph # (Auto) (1.2-4.9) X10*3/uL [place] # (Auto) (0.1-1.2) X10*3/uL Eos # (Auto) (0.0-0.4) X10*3/uL Baso # (Auto) (0.0-0.2) X10*3/uL Abs Immat Gran (auto) (0.00-0.03) X10*3/uL Absolute Neuts (auto) (2.0-8.3) X10*3/uL Absolute Nucleated RBC (0.0-0.012) X10*3/uL Nucleated RBC % (auto) (0.0-0.2) /100WBC D-Dimer < 200 NG/ML Sodium (135-145) mmol/L Potassium (3.3-5.1) mmol/L Chloride (96-108) mmol/L Carbon Dioxide (22-29) mmol/L Anion Gap (12-20) BUN (9-16) mg/dL Creatinine (0.5-1.4) mg/dL Estim Creat Clear Calc Estimated GFR Random Glucose (60-115) mg/dL Lactic Acid 2.2 H* (0.5-2.0) mmol/L Calcium (8.4-10.2) mg/dL Magnesium (1.6-2.6) mg/dL Total Bilirubin (0.0-1.0) mg/dL Direct Bilirubin (0.0-0.5) mg/dL AST (5-31) U/L ALT (0-31) U/L Alkaline Phosphatase (39-117) U/L Troponin I High Sens (<3.5-17.0) ng/L B-Natriuretic Peptide (<100) pg/mL Total Protein (6.5-8.0) g/dL Albumin (3.5-5.0) g/dL Lipase (8-78) U/L Urine Color Urine Appearance Urine pH (5.0-8.0) Ur Specific [place] (1.005-1.025) Urine Protein (NEG-TRACE) MG/DL Urine Glucose (UA) (NEG) MG/DL Urine Ketones (NEG) MG/DL Urine Blood (NEG) Urine Nitrite (NEG) Ur Leukocyte Esterase (NEG) Urine RBC (0) /HPF Urine WBC (0-4) /HPF Ur Squamous Epith Cells /LPF Urine Bacteria /LPF Urine Opiates Screen (Not Detect) Ur Barbiturates Screen (Not Detect) Ur Phencyclidine Scrn (Not Detect) Ur Amphetamines Screen (Not Detect) U Benzodiazepines Scrn (Not Detect) Urine Cocaine Screen (Not Detect) U Marijuana (THC) Screen (Not Detect) COVID-19 (BRENDA) Negative (Negative) COVID-19 Clin Com See Note 02/24/21 02/24/21 02/24/21 Range/Units 17:01 17:01 18:07 WBC (4.8-10.8) X10*3/uL RBC (4.20-5.50) X10*6/uL Hgb (12.0-16.0) g/dl Hct (37-47) % MCV (80-98) fL MCH (27.0-33.0) pg MCHC (31.0-35.0) g/dl RDW (11.0-16.0) % Plt Count (160-400) X10*3/uL MPV (9.4-12.3) fL Immature Gran % (Auto) (0.0-0.4) % Neut % (Auto) (45-73) % Lymph % (Auto) (20-40) % [place] % (Auto) (2-11) % Eos % (Auto) (0-4) % Baso % (Auto) (0-2) % Lymph # (Auto) (1.2-4.9) X10*3/uL [place] # (Auto) (0.1-1.2) X10*3/uL Eos # (Auto) (0.0-0.4) X10*3/uL Baso # (Auto) (0.0-0.2) X10*3/uL Abs Immat Gran (auto) (0.00-0.03) X10*3/uL Absolute Neuts (auto) (2.0-8.3) X10*3/uL Absolute Nucleated RBC (0.0-0.012) X10*3/uL Nucleated RBC % (auto) (0.0-0.2) /100WBC D-Dimer NG/ML Sodium (135-145) mmol/L Potassium (3.3-5.1) mmol/L Chloride (96-108) mmol/L Carbon Dioxide (22-29) mmol/L Anion Gap (12-20) BUN (9-16) mg/dL Creatinine (0.5-1.4) mg/dL Estim Creat Clear Calc Estimated GFR Random Glucose (60-115) mg/dL Lactic Acid (0.5-2.0) mmol/L Calcium (8.4-10.2) mg/dL Magnesium (1.6-2.6) mg/dL Total Bilirubin (0.0-1.0) mg/dL Direct Bilirubin (0.0-0.5) mg/dL AST (5-31) U/L ALT (0-31) U/L Alkaline Phosphatase (39-117) U/L Troponin I High Sens 6.0 (<3.5-17.0) ng/L B-Natriuretic Peptide 16 (<100) pg/mL Total Protein (6.5-8.0) g/dL Albumin (3.5-5.0) g/dL Lipase (8-78) U/L Urine Color STRAW Urine Appearance CLEAR Urine pH 8.5 H (5.0-8.0) Ur Specific [place] 1.010 (1.005-1.025) Urine Protein NEG (NEG-TRACE) MG/DL Urine Glucose (UA) NEG (NEG) MG/DL Urine Ketones NEG (NEG) MG/DL Urine Blood 2+ H (NEG) Urine Nitrite NEG (NEG) Ur Leukocyte Esterase TRACE H (NEG) Urine RBC 15-29 H (0) /HPF Urine WBC 1-4 (0-4) /HPF Ur Squamous Epith Cells TRACE /LPF Urine Bacteria NONE /LPF Urine Opiates Screen Not Detected (Not Detect) Ur Barbiturates Screen Not Detected (Not Detect) Ur Phencyclidine Scrn Not Detected (Not Detect) Ur Amphetamines Screen Not Detected (Not Detect) U Benzodiazepines Scrn Not Detected (Not Detect) Urine Cocaine Screen Not Detected (Not Detect) U Marijuana (THC) Screen Not Detected (Not Detect) COVID-19 (BRENDA) (Negative) COVID-19 Clin Com <FLORENCIA Mota - Last Filed: 02/24/21 17:17> Lab Results 02/24/21 02/24/21 02/24/21 Range/Units 16:09 16:09 16:10 WBC 16.3 H (4.8-10.8) X10*3/uL RBC 4.54 (4.20-5.50) X10*6/uL Hgb 13.7 (12.0-16.0) g/dl Hct 40.7 (37-47) % MCV 89.6 (80-98) fL MCH 30.2 (27.0-33.0) pg MCHC 33.7 (31.0-35.0) g/dl RDW 12.5 (11.0-16.0) % Plt Count 308 (160-400) X10*3/uL MPV 9.8 (9.4-12.3) fL Immature Gran % (Auto) 0.4 (0.0-0.4) % Neut % (Auto) 82.3 H (45-73) % Lymph % (Auto) 10.8 L (20-40) % [place] % (Auto) 5.6 (2-11) % Eos % (Auto) 0.7 (0-4) % Baso % (Auto) 0.2 (0-2) % Lymph # (Auto) 1.8 (1.2-4.9) X10*3/uL [place] # (Auto) 0.9 (0.1-1.2) X10*3/uL Eos # (Auto) 0.1 (0.0-0.4) X10*3/uL Baso # (Auto) 0.0 (0.0-0.2) X10*3/uL Abs Immat Gran (auto) 0.06 H (0.00-0.03) X10*3/uL Absolute Neuts (auto) 13.4 H (2.0-8.3) X10*3/uL Absolute Nucleated RBC 0.000 (0.0-0.012) X10*3/uL Nucleated RBC % (auto) 0.0 (0.0-0.2) /100WBC D-Dimer NG/ML Sodium 138 (135-145) mmol/L Potassium 4.9 (3.3-5.1) mmol/L Chloride 103 (96-108) mmol/L Carbon Dioxide 26 (22-29) mmol/L Anion Gap 14 (12-20) BUN 13 (9-16) mg/dL Creatinine 0.91 (0.5-1.4) mg/dL Estim Creat Clear Calc 53.6 Estimated GFR > 60 Random Glucose 86 (60-115) mg/dL Lactic Acid (0.5-2.0) mmol/L Calcium 10.1 D (8.4-10.2) mg/dL Magnesium 2.3 (1.6-2.6) mg/dL Total Bilirubin 0.7 (0.0-1.0) mg/dL Direct Bilirubin 0.3 (0.0-0.5) mg/dL AST 19 (5-31) U/L ALT 23 (0-31) U/L Alkaline Phosphatase 71 (39-117) U/L Troponin I High Sens (<3.5-17.0) ng/L B-Natriuretic Peptide (<100) pg/mL Total Protein 7.2 (6.5-8.0) g/dL Albumin 4.5 (3.5-5.0) g/dL Lipase 5 L (8-78) U/L Urine Color Urine Appearance Urine pH (5.0-8.0) Ur Specific [place] (1.005-1.025) Urine Protein (NEG-TRACE) MG/DL Urine Glucose (UA) (NEG) MG/DL Urine Ketones (NEG) MG/DL Urine Blood (NEG) Urine Nitrite (NEG) Ur Leukocyte Esterase (NEG) Urine RBC (0) /HPF Urine WBC (0-4) /HPF Ur Squamous Epith Cells /LPF Urine Bacteria /LPF Urine Opiates Screen (Not Detect) Ur Barbiturates Screen (Not Detect) Ur Phencyclidine Scrn (Not Detect) Ur Amphetamines Screen (Not Detect) U Benzodiazepines Scrn (Not Detect) Urine Cocaine Screen (Not Detect) U Marijuana (THC) Screen (Not Detect) COVID-19 (BRENDA) (Negative) COVID-19 Clin Com 02/24/21 02/24/21 02/24/21 Range/Units 16:10 16:11 16:26 WBC (4.8-10.8) X10*3/uL RBC (4.20-5.50) X10*6/uL Hgb (12.0-16.0) g/dl Hct (37-47) % MCV (80-98) fL MCH (27.0-33.0) pg MCHC (31.0-35.0) g/dl RDW (11.0-16.0) % Plt Count (160-400) X10*3/uL MPV (9.4-12.3) fL Immature Gran % (Auto) (0.0-0.4) % Neut % (Auto) (45-73) % Lymph % (Auto) (20-40) % [place] % (Auto) (2-11) % Eos % (Auto) (0-4) % Baso % (Auto) (0-2) % Lymph # (Auto) (1.2-4.9) X10*3/uL [place] # (Auto) (0.1-1.2) X10*3/uL Eos # (Auto) (0.0-0.4) X10*3/uL Baso # (Auto) (0.0-0.2) X10*3/uL Abs Immat Gran (auto) (0.00-0.03) X10*3/uL Absolute Neuts (auto) (2.0-8.3) X10*3/uL Absolute Nucleated RBC (0.0-0.012) X10*3/uL Nucleated RBC % (auto) (0.0-0.2) /100WBC D-Dimer < 200 NG/ML Sodium (135-145) mmol/L Potassium (3.3-5.1) mmol/L Chloride (96-108) mmol/L Carbon Dioxide (22-29) mmol/L Anion Gap (12-20) BUN (9-16) mg/dL Creatinine (0.5-1.4) mg/dL Estim Creat Clear Calc Estimated GFR Random Glucose (60-115) mg/dL Lactic Acid 2.2 H* (0.5-2.0) mmol/L Calcium (8.4-10.2) mg/dL Magnesium (1.6-2.6) mg/dL Total Bilirubin (0.0-1.0) mg/dL Direct Bilirubin (0.0-0.5) mg/dL AST (5-31) U/L ALT (0-31) U/L Alkaline Phosphatase (39-117) U/L Troponin I High Sens (<3.5-17.0) ng/L B-Natriuretic Peptide (<100) pg/mL Total Protein (6.5-8.0) g/dL Albumin (3.5-5.0) g/dL Lipase (8-78) U/L Urine Color Urine Appearance Urine pH (5.0-8.0) Ur Specific [place] (1.005-1.025) Urine Protein (NEG-TRACE) MG/DL Urine Glucose (UA) (NEG) MG/DL Urine Ketones (NEG) MG/DL Urine Blood (NEG) Urine Nitrite (NEG) Ur Leukocyte Esterase (NEG) Urine RBC (0) /HPF Urine WBC (0-4) /HPF Ur Squamous Epith Cells /LPF Urine Bacteria /LPF Urine Opiates Screen (Not Detect) Ur Barbiturates Screen (Not Detect) Ur Phencyclidine Scrn (Not Detect) Ur Amphetamines Screen (Not Detect) U Benzodiazepines Scrn (Not Detect) Urine Cocaine Screen (Not Detect) U Marijuana (THC) Screen (Not Detect) COVID-19 (BRENDA) Negative (Negative) COVID-19 Clin Com See Note 02/24/21 02/24/21 02/24/21 Range/Units 17:01 17:01 18:07 WBC (4.8-10.8) X10*3/uL RBC (4.20-5.50) X10*6/uL Hgb (12.0-16.0) g/dl Hct (37-47) % MCV (80-98) fL MCH (27.0-33.0) pg MCHC (31.0-35.0) g/dl RDW (11.0-16.0) % Plt Count (160-400) X10*3/uL MPV (9.4-12.3) fL Immature Gran % (Auto) (0.0-0.4) % Neut % (Auto) (45-73) % Lymph % (Auto) (20-40) % [place] % (Auto) (2-11) % Eos % (Auto) (0-4) % Baso % (Auto) (0-2) % Lymph # (Auto) (1.2-4.9) X10*3/uL [place] # (Auto) (0.1-1.2) X10*3/uL Eos # (Auto) (0.0-0.4) X10*3/uL Baso # (Auto) (0.0-0.2) X10*3/uL Abs Immat Gran (auto) (0.00-0.03) X10*3/uL Absolute Neuts (auto) (2.0-8.3) X10*3/uL Absolute Nucleated RBC (0.0-0.012) X10*3/uL Nucleated RBC % (auto) (0.0-0.2) /100WBC D-Dimer NG/ML Sodium (135-145) mmol/L Potassium (3.3-5.1) mmol/L Chloride (96-108) mmol/L Carbon Dioxide (22-29) mmol/L Anion Gap (12-20) BUN (9-16) mg/dL Creatinine (0.5-1.4) mg/dL Estim Creat Clear Calc Estimated GFR Random Glucose (60-115) mg/dL Lactic Acid (0.5-2.0) mmol/L Calcium (8.4-10.2) mg/dL Magnesium (1.6-2.6) mg/dL Total Bilirubin (0.0-1.0) mg/dL Direct Bilirubin (0.0-0.5) mg/dL AST (5-31) U/L ALT (0-31) U/L Alkaline Phosphatase (39-117) U/L Troponin I High Sens 6.0 (<3.5-17.0) ng/L B-Natriuretic Peptide 16 (<100) pg/mL Total Protein (6.5-8.0) g/dL Albumin (3.5-5.0) g/dL Lipase (8-78) U/L Urine Color STRAW Urine Appearance CLEAR Urine pH 8.5 H (5.0-8.0) Ur Specific [place] 1.010 (1.005-1.025) Urine Protein NEG (NEG-TRACE) MG/DL Urine Glucose (UA) NEG (NEG) MG/DL Urine Ketones NEG (NEG) MG/DL Urine Blood 2+ H (NEG) Urine Nitrite NEG (NEG) Ur Leukocyte Esterase TRACE H (NEG) Urine RBC 15-29 H (0) /HPF Urine WBC 1-4 (0-4) /HPF Ur Squamous Epith Cells TRACE /LPF Urine Bacteria NONE /LPF Urine Opiates Screen Not Detected (Not Detect) Ur Barbiturates Screen Not Detected (Not Detect) Ur Phencyclidine Scrn Not Detected (Not Detect) Ur Amphetamines Screen Not Detected (Not Detect) U Benzodiazepines Scrn Not Detected (Not Detect) Urine Cocaine Screen Not Detected (Not Detect) U Marijuana (THC) Screen Not Detected (Not Detect) COVID-19 (BRENDA) (Negative) COVID-19 Clin Com <Puja Patiño, TURF GROWER - Last Filed: 02/24/21 19:47> ECG Data Attestation: I personally reviewed and interpreted this ECG as follows: <FLORENCIA Mota - Last Filed: 02/24/21 17:17> ECG interpretation date: 02/24/21 <FLORENCIA Mota - Last Filed: 02/24/21 17:17> ECG interpretation time: 15:42 <FLORENCIA Mota - Last Filed: 02/24/21 17:17> Interpretation: sinus tachycardia, HR 106, normal RI interval, normal QTc, no ST segment elevations or depressions <FLORENCIA Mota - Last Filed: 02/24/21 17:17> Critical Care Time Critical Care Time Critical Care Time: Yes <Puja Patiño NP - Last Filed: 02/24/21 19:47> Total Critical Care Time: 45 <Puja Patiño NP - Last Filed: 02/24/21 19:47> Attestation: I have personally provided critical care time exclusive of time spent on separately billable procedures. Time includes review of laboratory data, radiology results, discussion with consultants, and monitoring for potential decompensation. Interventions were performed as documented. <Puja Patiño NP - Last Filed: 02/24/21 19:47> Discharge Plan Discharge Clinical Impression: Pneumonia Qualifiers: Pneumonia type: due to unspecified organism Laterality: left Lung location: unspecified part of lung Qualified Code(s): J18.9 - Pneumonia, unspecified organism UTI (urinary tract infection) Qualifiers: Urinary tract infection type: acute cystitis Hematuria presence: with hematuria Qualified Code(s): N30.01 - Acute cystitis with hematuria <FLORENCIA Mota - Last Filed: 02/24/21 17:17> Patient Disposition: Admitted As Inpatient <FLORENCIA Mota - Last Filed: 02/24/21 17:17>
[2021-02-24] MEDS: methylPREDNISolone Sod Succ 125 MG/2 ML VIAL 60 MG IVPUSH (16:13)
[2021-02-24] MEDS: Acetaminophen 325 MG TABLET 975 MG PO (16:13)
[2021-02-24] MEDS: LORazepam 1 MG TABLET PO (16:14)
[2021-02-24] MEDS: 0.9 % Sodium Chloride 1,000 ML 999 ML IVCONT ×3 (16:17→19:21)
[2021-02-24 16:22] LABS: Basophils Percent Auto 0.2 % (0-2); Eosinophils Absolute Auto 0.1 X10*3/uL (0.0-0.4); Eosinophils Percent Auto 0.7 % (0-4); Hematocrit 40.7 % (37-47); Hemoglobin 13.7 g/dl (12.0-16.0); Imm Gran Abs Auto 0.06 X10*3/uL (0.00-0.03); Imm Gran Pct Auto 0.4 % (0.0-0.4); Lymphocytes Absolute Auto 1.8 X10*3/uL (1.2-4.9); Lymphocytes Percent Auto 10.8 % (20-40); MANUAL DIFF FLAG NO; Mean Corpuscular HGB Conc 33.7 g/dl (31.0-35.0); Mean Corpuscular Hemoglobin 30.2 pg (27.0-33.0); Mean Corpuscular Volume 89.6 fL (80-98); Mean Platelet Volume 9.8 fL (9.4-12.3); Monocytes Absolute Auto 0.9 X10*3/uL (0.1-1.2); Monocytes Percent Auto 5.6 % (2-11); Neutrophils Absolute Auto 13.4 X10*3/uL (2.0-8.3); Neutrophils Percent Auto 82.3 % (45-73); Platelet Count 308 X10*3/uL (160-400); Red Blood Count 4.54 X10*6/uL (4.20-5.50); Red Cell Distribution Width 12.5 % (11.0-16.0); White Blood Count 16.3 X10*3/uL (4.8-10.8)
[2021-02-24 16:29] LABS: D Dimer < 200 NG/ML
[2021-02-24] MEDS: cefTRIAXone sodium 1 GM in 0.9 % Sodium Chloride 50 ML IV (16:30)
[2021-02-24 16:38] LABS: Alanine Aminotransferase 23 U/L (0-31); Albumin Level 4.5 g/dL (3.5-5.0); Alkaline Phosphatase 71 U/L (39-117); Anion Gap 14 (12-20); Aspartate Amino Transferase 19 U/L (5-31); Bilirubin Direct 0.3 mg/dL (0.0-0.5); Bilirubin Total 0.7 mg/dL (0.0-1.0); Blood Urea Nitrogen 13 mg/dL (9-16); Calcium 10.1 mg/dL (8.4-10.2); Carbon Dioxide 26 mmol/L (22-29); Chloride 103 mmol/L (96-108); Creatinine Clr Calc Pharmacy 53.6; Estimated Glomerular Filt Rate > 60; Glucose Random 86 mg/dL (60-115); Magnesium 2.3 mg/dL (1.6-2.6); Potassium 4.9 mmol/L (3.3-5.1); Sodium 138 mmol/L (135-145); Total Protein 7.2 g/dL (6.5-8.0)
[2021-02-24 16:39] LABS: Lipase 5 U/L (8-78)
[2021-02-24 16:40] LABS: COVID-19 Test Negative (Negative); IDNOW Serial# 9DD0AD1C
[2021-02-24] MEDS: Azithromycin 500 MG in 0.9 % Sodium Chloride 250 ML 125 MG IV (16:57)
[2021-02-24] MEDS: Albuterol Sulfate (0.083%) 2.5 MG/3 ML VIAL.NEB 5 MG INHALE (17:01)
[2021-02-24 17:24] LABS: Lactic Acid 2.2 mmol/L (0.5-2.0)
[2021-02-24 17:47] LABS: Glucose Urine UA NEG (NEG); Leukocyte Esterase Urine TRACE (NEG); Nitrite Urine NEG (NEG); PH 8.5 (5.0-8.0); UACC Culture Trigger YES; Urine Blood 2+ (NEG); Urine Ketones NEG (NEG); Urine Protein NEG (NEG-TRACE)
[2021-02-24 17:49] LABS: Appearance Urine CLEAR; Color Urine STRAW
[2021-02-24 17:55] LABS: Squamous Epithelial Cell Urine TRACE /LPF
[2021-02-24 17:56] LABS: Amphetamine Screen Urine Not Detected (Not Detect); Barbiturates, Urine Not Detected (Not Detect); Benzodiazepines Screen Urine Not Detected (Not Detect); Cannabinoid Screen Urine Not Detected (Not Detect); Cocaine Screen Urine Not Detected (Not Detect); Opiate Screen Urine Not Detected (Not Detect); Phencyclidine Screen Urine Not Detected (Not Detect)
[2021-02-24 18:30] LABS: Reflex Lactate? Lactic Acid Added
[2021-02-24 18:44] LABS: B Type Natriuretic Peptide 16 pg/mL (<100)
--- NOTE | 2021-02-24 19:21 | HE.PHANOTE ---
MED REC IS COMPLETE, NO ISSUES
--- NOTE | 2021-02-24 20:05 | PM.IMHP ---
History of Present Illness Date of Service: 02/24/21 Chief Complaint: Shortness of breath 55-year-old female with a past medical history of hypertension, gastritis, anxiety, chronic diarrhea, history of H pylori, recent history of colonoscopy, history of internal hemorrhoids, asthma-recently on prednisone presented to the hospital with a chief complaint of generalized weakness and shortness of breath. Patient reported that over the past few days he has been feeding PT. denies any fevers and chills. Mentioned that she was recently on prednisone for asthma. This evening he started to have sudden shortness of breath associated with cough. Also complained of posttussive chest discomfort. Denies any numbness tingling. Denies any headaches palpitations. Denies any nausea or vomiting. Review of all other systems is negative except mentioned above ER course: For ER team patient noted to have coarse lung sounds; chest x-ray showed pneumonia. Started antibiotics. The patient also complained of left upper quadrant abdominal pain; lipase was within normal limits; patient was given IV fluids as per sepsis protocol in the ER. Admitted for further management. [facility] Medical History Anxiety Chronic diarrhea Depression Epigastric pain HTN (hypertension) Family History Father Cancer Mother H/O: hysterectomy Daughter H/O: hysterectomy Paternal Grandfather Stomach cancer Surgical History H/O tubal ligation History of appendectomy History of carpal tunnel release of both wrists Hx of colonoscopy Social History Household Members: None Housing: Apartment Alcohol intake: former Patient Tobacco Use Status: Former Tobacco user Advance Directives: No Advance Directives Information Provided: No Patient : No service: No Current occupational status: unemployed and disabled Meds Allergies Allergy/AdvReac Type Severity Reaction Status Date / Time aspirin [ASA] Allergy Severe Anaphylaxis Verified 03/02/21 15:42 ibuprofen [IBUPROFEN] Allergy Severe ANAPHYLAXIS, Verified 03/02/21 15:42 throat swelling zolpidem [From AMBIEN] Allergy Intermediate RASH, HIVES Verified 03/02/21 15:42 Active Medications: Current Medications Generic Name Dose Route Start Last Admin Trade Name Freq PRN Reason Stop Dose Admin Acetaminophen 650 mg 02/24/21 19:53 Acetaminophen 325 Mg Tablet PO Q6H PRN Pain, Mild (Pain Scale 1-3) Albuterol Sulfate 2 puff 02/24/21 19:57 Albuterol Sulfate 90 Mcg 8 Gm Inhaler INHALE Q4H PRN Respiratory Distress Atenolol 25 mg 02/25/21 09:00 Atenolol 25 Mg Tablet PO DAILY [facility] Protocol Azithromycin 500 mg 02/25/21 15:00 Azithromycin 500 Mg Tablet PO Q24H [facility] Enoxaparin Sodium 40 mg 02/24/21 20:00 Enoxaparin Sodium 40 Mg/0.4 Ml Syringe SUBCUT Q24H [facility] Fluoxetine HCl 10 mg 02/25/21 09:00 Fluoxetine Hcl 10 Mg Capsule PO DAILY [facility] Hydroxyzine HCl 50 mg 02/24/21 21:00 Hydroxyzine Hcl 50 Mg Tablet PO TID [facility] Ceftriaxone Sodium 1 gm/ 50 mls @ 100 mls/hr 02/24/21 20:00 Sodium Chloride IV Q24H [facility] Non-Formulary Medication 2 mg 02/25/21 09:00 Clonazepam PO DAILY [facility] Non-Formulary Medication 2 puff 02/24/21 21:00 Mometasone-Formoterol [Dulera] INHALE BID [facility] Non-Formulary Medication 400 mg 02/24/21 21:00 Quetiapine [Seroquel Xr] PO BEDTIME [facility] Omeprazole 20 mg 02/25/21 06:30 Omeprazole 20 Mg Capsule.Dr PO DAILY@0630 [facility] Pharmacy Consult 1 each 02/24/21 18:40 Consult Rx Perform Med Rec MISCELLANE ONCE PRN Consult order Pharmacy Consult 1 each 02/24/21 19:08 Consult Rx Perform Med Rec MISCELLANE ONCE PRN Consult order Senna 17.2 mg 02/24/21 19:53 Sennosides 8.6 Mg Tablet PO BEDTIME PRN Constipation Sodium Chloride 3 ml 02/25/21 00:00 0.9 % Sodium Chloride Flush 3 Ml Syringe IVFLUSH QSHIFT [facility] Vitamin D 25 mcg 02/25/21 09:00 Cholecalciferol (Vitamin D3) 25 Mcg Tablet PO DAILY [facility] Home Medications Medication Instructions Recorded Confirmed Last Taken Type clonazepam 2 mg tablet 2 mg PO DAILY 11/23/20 02/24/21 02/24/21 History quetiapine 400 mg tablet,extended 400 mg PO BEDTIME 11/23/20 02/24/21 02/23/21 History release 24 hr atenolol 25 mg PO DAILY 12/23/20 02/24/21 02/24/21 History Dulera 2 puff INHALATION BID 02/24/21 02/24/21 Unknown History albuterol sulfate [ProAir HFA] 2 puff INHALATION Q4H PRN 02/24/21 02/24/21 Unknown History cholecalciferol (vitamin D3) 25 mcg PO DAILY 02/24/21 02/24/21 02/24/21 History [Vitamin D3] fluoxetine 10 mg PO DAILY 02/24/21 02/24/21 02/24/21 History hydroxyzine HCl 50 mg PO TID 02/24/21 02/24/21 02/24/21 History omeprazole 20 mg PO DAILY@0630 02/24/21 02/24/21 Unknown History Physical Exam Vital Signs and Narrative: Vital Signs: Last Vital Signs Temp 100.0 F 02/24/21 15:08 Pulse 91 02/24/21 17:10 Resp 20 02/24/21 17:10 BP 109/54 L 02/24/21 17:39 Pulse Ox 97 02/24/21 17:10 Body Mass Index 24.6 Gen: Appears be in no acute distress HEENT: NCAT, Moist mucosa. Pulmonary: Course breath sounds, fair air entry CVS: Normal S1-S2 Abdomen: BS+, Soft, Nontender Extremities: Warm well perfused Neuro: Alert and awake. Results Labs CBC and Chem 7: 02/26/21 05:59 02/26/21 05:59 Labs: Laboratory Results - last 24 hr 02/24/21 02/24/21 02/24/21 16:09 16:09 16:10 MCV 89.6 MCH 30.2 MCHC 33.7 RDW 12.5 Plt Count 308 MPV 9.8 Immature Gran % (Auto) 0.4 Neut % (Auto) 82.3 H Lymph % (Auto) 10.8 L [place] % (Auto) 5.6 Eos % (Auto) 0.7 Baso % (Auto) 0.2 Lymph # (Auto) 1.8 Gooding # (Auto) 0.9 Eos # (Auto) 0.1 Baso # (Auto) 0.0 Abs Immat Gran (auto) 0.06 H Absolute Neuts (auto) 13.4 H Absolute Nucleated RBC 0.000 Nucleated RBC % (auto) 0.0 D-Dimer Anion Gap 14 Estim Creat Clear Calc 53.6 Estimated GFR > 60 Random Glucose 86 Lactic Acid Calcium 10.1 D Magnesium 2.3 Total Bilirubin 0.7 Direct Bilirubin 0.3 AST 19 ALT 23 Alkaline Phosphatase 71 Troponin I High Sens B-Natriuretic Peptide Total Protein 7.2 Albumin 4.5 Lipase 5 L Urine Color Urine Appearance Urine pH Ur Specific [place] Urine Protein Urine Glucose (UA) Urine Ketones Urine Blood Urine Nitrite Ur Leukocyte Esterase Urine RBC Urine WBC Ur Squamous Epith Cells Urine Bacteria Urine Opiates Screen Ur Barbiturates Screen Ur Phencyclidine Scrn Ur Amphetamines Screen U Benzodiazepines Scrn Urine Cocaine Screen U Marijuana (THC) Screen COVID-19 (BRENDA) [employer] 02/24/21 02/24/21 02/24/21 16:10 16:11 16:26 MCV MCH MCHC RDW Plt Count MPV Immature Gran % (Auto) Neut % (Auto) Lymph % (Auto) [place] % (Auto) Eos % (Auto) Baso % (Auto) Lymph # (Auto) Good[place] # (Auto) Eos # (Auto) Baso # (Auto) Abs Immat Gran (auto) Absolute Neuts (auto) Absolute Nucleated RBC Nucleated RBC % (auto) D-Dimer < 200 Anion Gap Estim Creat Clear Calc Estimated GFR Random Glucose Lactic Acid 2.2 H* Calcium Magnesium Total Bilirubin Direct Bilirubin AST ALT Alkaline Phosphatase Troponin I High Sens B-Natriuretic Peptide Total Protein Albumin Lipase Urine Color Urine Appearance Urine pH Ur Specific [place] Urine Protein Urine Glucose (UA) Urine Ketones Urine Blood Urine Nitrite Ur Leukocyte Esterase Urine RBC Urine WBC Ur Squamous Epith Cells Urine Bacteria Urine Opiates Screen Ur Barbiturates Screen Ur Phencyclidine Scrn Ur Amphetamines Screen U Benzodiazepines Scrn Urine Cocaine Screen U Marijuana (THC) Screen COVID-19 (BRENDA) Negative [employer] See Note 02/24/21 02/24/21 02/24/21 17:01 17:01 18:07 MCV MCH MCHC RDW Plt Count MPV Immature Gran % (Auto) Neut % (Auto) Lymph % (Auto) [place] % (Auto) Eos % (Auto) Baso % (Auto) Lymph # (Auto) [place] # (Auto) Eos # (Auto) Baso # (Auto) Abs Immat Gran (auto) Absolute Neuts (auto) Absolute Nucleated RBC Nucleated RBC % (auto) D-Dimer Anion Gap Estim Creat Clear Calc Estimated GFR Random Glucose Lactic Acid Calcium Magnesium Total Bilirubin Direct Bilirubin AST ALT Alkaline Phosphatase Troponin I High Sens 6.0 B-Natriuretic Peptide 16 Total Protein Albumin Lipase Urine Color STRAW Urine Appearance CLEAR Urine pH 8.5 H Ur Specific [place] 1.010 Urine Protein NEG Urine Glucose (UA) NEG Urine Ketones NEG Urine Blood 2+ H Urine Nitrite NEG Ur Leukocyte Esterase TRACE H Urine RBC 15-29 H Urine WBC 1-4 Ur Squamous Epith Cells TRACE Urine Bacteria NONE Urine Opiates Screen Not Detected Ur Barbiturates Screen Not Detected Ur Phencyclidine Scrn Not Detected Ur Amphetamines Screen Not Detected U Benzodiazepines Scrn Not Detected Urine Cocaine Screen Not Detected U Marijuana (THC) Screen Not Detected COVID-19 (BRENDA) COVID-19 Clin Com Imaging Radiologist's Impressions: Impressions Chest X-Ray 02/24/21 15:11 IMPRESSION: A mild left base patchy infiltrate is seen, which can be more fully evaluated with a lateral view, if clinically indicated. Assessment and Plan (1) Pneumonia: Qualifiers: Laterality: left Lung location: unspecified part of lung Pneumonia type: due to unspecified organism Qualified Code(s): J18.9 - Pneumonia, unspecified organism Status: Acute 55-year-old female with a past medical history of hypertension, anxiety, asthma, gastritis, H pylori, chronic diarrhea presented to the hospital with a chief complaint of shortness of breath. Noted to have a pneumonia. Pneumonia: Continue ceftriaxone and azithromycin. Asthma: Duo nebs p.r.n.. Microscopic hematuria: Patient has been having microscopic hematuria. Will obtain renal ultrasound and urology consult. Hypertension: Continue home medications DVT prophylaxis: SCD boots Code status: Full code
[2021-02-24 21:45] LABS: ~Lactic Acid-LAB USE ONLY 4.9 mmol/L (0.5-2.0)
[2021-02-24] MEDS: QUEtiapine Fumarate 200 MG TABLET PO (22:11)
[2021-02-24] MEDS: hydrOXYzine HCL 50 MG TABLET PO (22:11)
[2021-02-24] MEDS: 0.9 % Sodium Chloride 1,000 ML 100 ML IVCONT (22:11)
[2021-02-24 23:09] LABS: Reflex Lactate? 2 Y
[2021-02-25] VITALS (9 sets, daily range): BP systolic 102–137; BP diastolic 52–67; PULSE 69–94; RESP 18–20; TEMP 36.3–37.4; O2SAT 95–99
[2021-02-25 00:28] LABS: ~Lactic Acid-LAB USE ONLY 4.8 mmol/L (0.5-2.0)
[2021-02-25] MEDS: Omeprazole 20 MG CAPSULE.DR PO (05:30)
[2021-02-25] MEDS: Fluticasone/Vilanterol 200/25 BLST.W.DEV 1 PUFF INHALE (07:15)
[2021-02-25 07:31] LABS: MANUAL DIFF FLAG NO
[2021-02-25 07:36] LABS: Basophils Percent Auto 0.2 % (0-2); Hematocrit 35.6 % (37-47); Hemoglobin 11.6 g/dl (12.0-16.0); Imm Gran Abs Auto 0.11 X10*3/uL (0.00-0.03); Imm Gran Pct Auto 0.6 % (0.0-0.4); Lymphocytes Absolute Auto 1.4 X10*3/uL (1.2-4.9); Lymphocytes Percent Auto 7.3 % (20-40); Mean Corpuscular HGB Conc 32.6 g/dl (31.0-35.0); Mean Corpuscular Hemoglobin 30.2 pg (27.0-33.0); Mean Corpuscular Volume 92.7 fL (80-98); Mean Platelet Volume 9.8 fL (9.4-12.3); Monocytes Absolute Auto 0.8 X10*3/uL (0.1-1.2); Monocytes Percent Auto 4.3 % (2-11); Neutrophils Absolute Auto 16.8 X10*3/uL (2.0-8.3); Neutrophils Percent Auto 87.6 % (45-73); Platelet Count 284 X10*3/uL (160-400); Red Blood Count 3.84 X10*6/uL (4.20-5.50); White Blood Count 19.1 X10*3/uL (4.8-10.8)
[2021-02-25 08:08] LABS: Anion Gap 14 (12-20); Blood Urea Nitrogen 18 mg/dL (9-16); Carbon Dioxide 19 mmol/L (22-29); Chloride 112 mmol/L (96-108); Creatinine Clr Calc Pharmacy 60.2; Estimated Glomerular Filt Rate > 60; Glucose Random 107 mg/dL (60-115); Magnesium 2.2 mg/dL (1.6-2.6); Potassium 4.6 mmol/L (3.3-5.1); Sodium 140 mmol/L (135-145)
[2021-02-25 08:25] LABS: Calcium 8.9 mg/dL (8.4-10.2)
[2021-02-25] MEDS: Cholecalciferol (Vitamin D3) 25 MCG TABLET PO (08:34)
[2021-02-25] MEDS: atenoloL 25 MG TABLET PO (08:34)
[2021-02-25] MEDS: QUEtiapine Fumarate 200 MG TABLET PO ×2 (08:34→20:51)
[2021-02-25] MEDS: hydrOXYzine HCL 50 MG TABLET PO ×3 (08:34→20:51)
[2021-02-25] MEDS: FLUoxetine HCl 10 MG CAPSULE PO (08:35)
[2021-02-25] MEDS: 0.9 % Sodium Chloride Flush 3 ML SYRINGE IVFLUSH ×3 (08:35→20:52)
[2021-02-25] MEDS: clonazePAM 1 MG TABLET 2 MG PO (08:35)
[2021-02-25] MEDS: 0.9 % Sodium Chloride 1,000 ML 100 ML IVCONT (08:35)
--- NOTE | 2021-02-25 14:27 | HO.PM.IMPN ---
Subjective Subjective Date of Service: 02/25/21 Interval History: Patient complaining of dry cough, chills and shortness of breath, overall feels better since admission ROS General no headache no dizziness, no fever, +chills. CVS no chest pain, no palpitation. Respiratory cough ,sob. Gastrointestinal no nausea, no vomiting, no abdominal pain Physical Exam Vital Signs: Vital Signs: Last Vital Signs Temp 99.3 F 02/25/21 11:04 Pulse 91 02/25/21 11:04 Resp 18 02/25/21 11:04 BP 106/58 L 02/25/21 11:04 Pulse Ox 97 02/25/21 11:04 Body Mass Index 24.6 General no acute distress. Neck no JVD. CVS regular rate rhythm, Respiratory lungs clear to auscultation, diminished breath sound, no respiratory distress, no rhonchi. Gastrointestinal abdomen soft, nontender, bowel sounds audible, no guarding , no rigidity. Extremities no clubbing cyanosis or edema. Neuro nonfocal Skin no rash Objective Data Current Medications Generic Name Dose Route Start Last Admin Trade Name Freq PRN Reason Stop Dose Admin Acetaminophen 650 mg 02/24/21 19:53 Acetaminophen 325 Mg Tablet PO Q6H PRN Pain, Mild (Pain Scale 1-3) Albuterol Sulfate 2 puff 02/24/21 19:57 Albuterol Sulfate 90 Mcg 8 Gm Inhaler INHALE Q4H PRN Respiratory Distress Albuterol/Ipratropium 3 ml 02/24/21 20:14 Albuterol/Iprat 2.5/0.5mg 3 Ml Ampul.Neb INHALE RQ4H PRN Shortness of Breath/Wheezing Atenolol 25 mg 02/25/21 09:00 02/25/21 08:34 Atenolol 25 Mg Tablet PO 25 mg DAILY [facility] Administration Protocol Azithromycin 500 mg 02/25/21 15:00 Azithromycin 500 Mg Tablet PO Q24H [facility] Clonazepam 2 mg 02/25/21 09:00 02/25/21 08:35 Clonazepam 1 Mg Tablet PO 2 mg DAILY [facility] Administration Fluoxetine HCl 10 mg 02/25/21 09:00 02/25/21 08:35 Fluoxetine Hcl 10 Mg Capsule PO 10 mg DAILY [facility] Administration Fluticasone/Vilanterol 1 puff 02/25/21 08:00 02/25/21 07:15 Fluticasone/Vilanterol 200/25 Blst.W.Dev INHALE 1 puff RDAILY [facility] Administration Hydroxyzine HCl 50 mg 02/24/21 21:00 02/25/21 08:34 Hydroxyzine Hcl 50 Mg Tablet PO 50 mg TID [facility] Administration Ceftriaxone Sodium 1 gm/ 50 mls @ 100 mls/hr 02/25/21 15:00 Sodium Chloride IV Q24H [facility] Sodium Chloride 1,000 mls @ 100 mls/hr 02/24/21 22:00 02/25/21 08:35 Ns IVCONT 100 mls/hr .Q10H [facility] Administration Omeprazole 20 mg 02/25/21 06:30 02/25/21 05:30 Omeprazole 20 Mg Capsule.Dr PO 20 mg DAILY@0630 [facility] Administration Pharmacy Consult 1 each 02/24/21 18:40 Consult Rx Perform Med Rec MISCELLANE ONCE PRN Consult order Pharmacy Consult 1 each 02/24/21 19:08 Consult Rx Perform Med Rec MISCELLANE ONCE PRN Consult order Quetiapine Fumarate 200 mg 02/24/21 21:00 02/25/21 08:34 Quetiapine Fumarate 200 Mg Tablet PO 200 mg BID [facility] Administration Senna 17.2 mg 02/24/21 19:53 Sennosides 8.6 Mg Tablet PO BEDTIME PRN Constipation Sodium Chloride 3 ml 02/25/21 00:00 02/25/21 08:35 0.9 % Sodium Chloride Flush 3 Ml Syringe IVFLUSH 3 ml QSHIFT [facility] Administration Vitamin D 25 mcg 02/25/21 09:00 02/25/21 08:34 Cholecalciferol (Vitamin D3) 25 Mcg Tablet PO 25 mcg DAILY [facility] Administration Labs CBC & Chem 7: 02/25/21 07:24 02/25/21 07:24 Microbiology Microbiology Results: Microbiology 02/24/21 17:59 Urine clean catch - Clean Catch Midstream Urine Culture - Preliminary No growth to date. Assessment and Plan (1) Pneumonia: Status: Acute (2) HTN (hypertension): Status: Acute Assessment and Plan: 55-year-old female with a past medical history of hypertension, anxiety, asthma, gastritis, H pylori, chronic diarrhea presented to the hospital with a chief complaint of shortness of breath, chest pain cough, noted to be tachycardic, had elevated lactic acid and WBC. Chest x-ray showed left base pneumonia. Community acquired Pneumonia: Complaining of persistent dry cough and sob no sepsis on admission Lactic acidosis due to albuterol and leukocytosis due to recent steroids Continue iv ceftriaxone and azithromycin day 2,continue supportive care with cough syp add IS,rec oob to chair dc ivf. possible dc at am if remains stable. Asthma: No acute exac,no wheeze rhonchi recently finished course of steroids cont. Duo nebs p.r.n. Microscopic hematuria: ch.microscopic hematuria,normal renal us, will cancel urology consult. Hypertension: Continue atenolol DVT prophylaxis: SCD boots Code status: Full code
--- NOTE | 2021-02-25 15:06 | MHC.CM.PN ---
CM MET WITH PT WHO REPORTS SHE LIVES ALONE AND IS INDEPENDENT WITH CARE AND MOBILITY. PT DENIES USE OF DME OR IN HOME SERVICES. PT REPORTS HER PCP IS [facility] AND SHE WOULD LIKE CM TO MAKE AN APPOINTMENT FOR HER. PT REPORTS SHE HAS MEMORY PROBLEMS AND FORGETS TO MAKE ONE FOR HERSELF. PT REPORTS SHE BELIEVES SHE HAS SLEEP APNEA AND NEEDS A CPAP. CM WILL SEND A TASK TO CM OFFICE TO MAKE APPT SATURDAY WHEN THE PCP OFFICE IS OPEN. PT DOES NOT THINK SHE HAS SIGNED A HCP ON THE PAST. BASED ON DISCUSSION, CM GAVE PT INFORMATION ABOUT THE DOCUMENT AND WILL REVISIT TOMORROW TO COMPLETE ONE IF PT CHOOSES TO DO SO. CURRENT DC PLAN IS HOME WITH NO SERVICES PT WILL ARRANGE TRANSPORTATION
[2021-02-25] MEDS: Azithromycin 500 MG TABLET PO (15:17)
[2021-02-25] MEDS: guaiFENesin DM 100/10/5 ML 5 ML SYRUP 10 ML PO ×2 (15:17→20:51)
[2021-02-25] MEDS: cefTRIAXone sodium 1 GM in 0.9 % Sodium Chloride 50 ML IV (15:18)
[2021-02-25 16:32] LABS: Lactic Acid 2.2 mmol/L (0.5-2.0)
[2021-02-25 17:52] LABS: Reflex Lactate? Lactic Acid Added
[2021-02-25 18:32] LABS: ~Lactic Acid-LAB USE ONLY 3.4 mmol/L (0.5-2.0)
[2021-02-25] MEDS: Acetaminophen 325 MG TABLET 650 MG PO (19:12)
[2021-02-25 20:09] LABS: Reflex Lactate? 2 Y
[2021-02-25] MEDS: Albuterol/Iprat 2.5/0.5MG 3 ML AMPUL.NEB INHALE (20:26)
[2021-02-25 20:34] LABS: Cancel Lactic Acid Canceled
[2021-02-26 03:57] VITALS: BP 114/61; PULSE 78; RESP 18; TEMP 36.4; O2SAT 96
[2021-02-26] MEDS: Omeprazole 20 MG CAPSULE.DR PO (05:30)
[2021-02-26 07:01] LABS: Anion Gap 15 (12-20); Blood Urea Nitrogen 23 mg/dL (9-16); Carbon Dioxide 21 mmol/L (22-29); Chloride 111 mmol/L (96-108); Creatinine Clr Calc Pharmacy 55.4; Estimated Glomerular Filt Rate > 60; Glucose Random 83 mg/dL (60-115); Potassium 4.5 mmol/L (3.3-5.1); Sodium 142 mmol/L (135-145)
[2021-02-26 07:08] VITALS: BP 121/64; PULSE 85; RESP 20; TEMP 37.1; O2SAT 96
[2021-02-26 07:13] LABS: Hematocrit 35.6 % (37-47); Hemoglobin 11.6 g/dl (12.0-16.0); Mean Corpuscular HGB Conc 32.6 g/dl (31.0-35.0); Mean Corpuscular Hemoglobin 30.4 pg (27.0-33.0); Mean Corpuscular Volume 93.2 fL (80-98); Mean Platelet Volume 10.2 fL (9.4-12.3); Platelet Count 299 X10*3/uL (160-400); Red Blood Count 3.82 X10*6/uL (4.20-5.50); Red Cell Distribution Width 13.2 % (11.0-16.0); White Blood Count 15.2 X10*3/uL (4.8-10.8)
[2021-02-26 07:22] VITALS: PULSE 94; O2SAT 95
[2021-02-26] MEDS: Fluticasone/Vilanterol 200/25 BLST.W.DEV 1 PUFF INHALE (07:22)
[2021-02-26] MEDS: QUEtiapine Fumarate 200 MG TABLET PO (07:45)
[2021-02-26] MEDS: FLUoxetine HCl 10 MG CAPSULE PO (07:45)
[2021-02-26] MEDS: clonazePAM 1 MG TABLET 2 MG PO (07:45)
[2021-02-26] MEDS: guaiFENesin DM 100/10/5 ML 5 ML SYRUP 10 ML PO (07:45)
[2021-02-26] MEDS: atenoloL 25 MG TABLET PO (07:46)
[2021-02-26] MEDS: hydrOXYzine HCL 50 MG TABLET PO (07:46)
[2021-02-26] MEDS: 0.9 % Sodium Chloride Flush 3 ML SYRINGE IVFLUSH (07:46)
[2021-02-26] MEDS: Cholecalciferol (Vitamin D3) 25 MCG TABLET PO (07:46)
--- NOTE | 2021-02-26 09:46 | PM.DS ---
DS: Providers Provider Date of Service: 02/26/21 Date of admission: 02/24/21 19:54 Primary care physician: Paty Bowen MD DS: Diagnosis Discharge Diagnosis (1) Pneumonia: Status: Acute (2) HTN (hypertension): Status: Acute DS: Medications Discharge Medications Home Medications: Home Medications Medication Instructions Recorded Confirmed clonazepam 2 mg tablet 2 mg PO DAILY 11/23/20 02/24/21 quetiapine 400 mg tablet,extended 400 mg PO BEDTIME 11/23/20 02/24/21 release 24 hr atenolol 25 mg PO DAILY 12/23/20 02/24/21 albuterol sulfate [ProAir HFA] 2 puff INHALATION Q4H PRN 02/24/21 02/24/21 cholecalciferol (vitamin D3) 25 mcg PO DAILY 02/24/21 02/24/21 [Vitamin D3] fluoxetine 10 mg PO DAILY 02/24/21 02/24/21 hydroxyzine HCl 50 mg PO TID 02/24/21 02/24/21 mometasone-formoterol [Dulera] 2 puff INHALATION BID 02/24/21 02/24/21 omeprazole 20 mg PO DAILY@0630 02/24/21 02/24/21 DS: Summary Hospital Course Hospital Course: 55-year-old female with a past medical history of hypertension, gastritis, anxiety, chronic diarrhea, history of H pylori, recent history of colonoscopy, history of internal hemorrhoids, asthma-recently on prednisone presented to the hospital with a chief complaint of generalized weakness and shortness of breath. Patient reported that over the past few days he has been feeding PT. denies any fevers and chills. Mentioned that she was recently on prednisone for asthma. This evening he started to have sudden shortness of breath associated with cough. Also complained of posttussive chest discomfort. Denies any numbness tingling. Denies any headaches palpitations. Denies any nausea or vomiting. Review of all other systems is negative except mentioned above ER course: For ER team patient noted to have coarse lung sounds; chest x-ray showed pneumonia. Started antibiotics. The patient also complained of left upper quadrant abdominal pain; lipase was within normal limits; patient was given IV fluids as per sepsis protocol in the ER. Admitted for further management. Hospital course: She was admitted for Community acquired Pneumonia with no associated sepsis but increased in WBC, mostly dry cough. She has been treated with IV Ceftriaxone and oral Azithromycin with good response. WBC is now trending down (some of the rise in WBC is due to steroid), she has no fever and her symptoms continue to improve, she does not need oxygen. At this point I am trsitioning to oral Ceftin and Oral Azithromycin for total of 7 days of antibiotics. She is comofrtable with the discharge plan Asthma: There was no acute exacerbation, although she was given steroid in the ED and Duoneb PRN Microscopic hematuria: ch.microscopic hematuria,normal renal us, no further wok at this time Hypertension: Continue Atenolol Status at Discharge Functional status at discharge: independent ambulation Time Spent with Patient Time attestation: Total time spent providing and/or coordinating discharge services: Discharge coordination time: Greater than 30 minutes Quality: Stroke Does the patient have a stroke diagnosis?: No Physical Exam Vital Signs: Vital Signs: Last Vital Signs Temp 98.8 F 02/26/21 07:08 Pulse 94 02/26/21 07:22 Resp 20 02/26/21 07:08 BP 121/64 02/26/21 07:08 Pulse Ox 96 02/26/21 07:08 Body Mass Index 24.6 Constitutional Awake and Alert, No apparent distress Neck Supple, No lymphadenopathy Cardiovascular RRR, No M/R/G, S1 S2, No S3 S4, No pedal edema Respiratory Lungs clear, No respiratory distress Gastrointestinal Non tender, Non-distended Skin No rash Neurological Alert & oriented x3 Psychological Appropriate affect DS: Data Data Completed and Pending Labs on day of discharge: Laboratory Results - last 24 hr 02/25/21 02/25/21 02/26/21 15:49 18:04 05:59 WBC 15.2 H RBC 3.82 L Hgb 11.6 L Hct 35.6 L MCV 93.2 MCH 30.4 MCHC 32.6 RDW 13.2 Plt Count 299 MPV 10.2 Absolute Nucleated RBC 0.000 Nucleated RBC % (auto) 0.0 Sodium Potassium Chloride Carbon Dioxide Anion Gap BUN Creatinine Estim Creat Clear Calc Estimated GFR Random Glucose Lactic Acid 2.2 H* Lactic Acid Fup @ 2Hr 3.4 H* Calcium 02/26/21 05:59 WBC RBC Hgb Hct MCV MCH MCHC RDW Plt Count MPV Absolute Nucleated RBC Nucleated RBC % (auto) Sodium 142 Potassium 4.5 Chloride 111 H Carbon Dioxide 21 L Anion Gap 15 BUN 23 H Creatinine 0.88 Estim Creat Clear Calc 55.4 Estimated GFR > 60 Random Glucose 83 Lactic Acid Lactic Acid Fup @ 2Hr Calcium 9.0 Preliminary micro results at discharge 02/24/21 16:08 Blood Culture - Preliminary Blood - Venous No growth after 24 hours. 02/24/21 16:08 Blood Culture - Preliminary Blood - Venous No growth after 24 hours. Discharge Plan Discharge Anticipated Discharge Date/Time: 02/26/21 10:00 Patient Disposition: Home, Self-Care Discharge Diagnosis: Pneumonia Referrals: Paty Bowen MD [Primary Care Provider] - 1 Week Discharge Medications: New cefuroxime axetil 500 mg tablet 500 mg PO BID 7 Days Qty: 10 RF: 0 azithromycin 250 mg tablet 250 mg PO DAILY 3 Days Qty: 3 RF: 0 Continued atenolol 25 mg tablet 25 mg PO DAILY RF: 0 hydroxyzine HCl 50 mg Tablet 50 mg PO TID RF: 0 fluoxetine 10 mg Capsule 10 mg PO DAILY RF: 0 cholecalciferol (vitamin D3) [Vitamin D3] 25 mcg (1,000 unit) Tablet 25 mcg PO DAILY RF: 0 Dulera 200-5 mcg/actuation Hfa Aerosol Inhaler 2 puff INHALATION BID RF: 0 omeprazole 20 mg Capsule,Delayed Release(Dr/Ec) 20 mg PO DAILY@0630 RF: 0 albuterol sulfate [ProAir HFA] 90 mcg/actuation Hfa Aerosol Inhaler 2 puff INHALATION Q4H PRN (Reason: Respiratory Distress) RF: 0 clonazepam 2 mg tablet 2 mg PO DAILY RF: 0 quetiapine [Seroquel XR] 400 mg tablet extended release 24 hr 400 mg PO BEDTIME RF: 0 Discharge Orders: Discharge Order (Routine); Ordered 02/26/21 Ordered By: Semaj Montes De Oca Diet: advance to usual diet Activity on Discharge: As tolerated Stand Alone Forms: Patient Portal Discharge page Care Plan Goals: Full recerovery from pneumonia Health Concerns: Pneumonia Assessment: Take Ceftin and Azithromycin as directed and follow up with your Doctor in a week, call for appointment
--- NOTE | 2021-02-26 10:33 | MHC.CM.PN ---
PT WILL DC HOME TODAY WITH NO NEW SERVICES. FAMILY TO TRANSPORT
== END 2021-02-26 11:51 | disposition home or self-care (01) | DRG 139 ==
LOC: HO.ED 19:40 → HO.IMC 20:36
PROVIDERS: Hospitalist; Physician Assistant; Admitting Provider Hospitalist; Emergency Provider Emergency Medicine; PCP Family Medicine; Visit Provider Internal Medicine
DX: J18.9 Pneumonia, unspecified organism (principal); F41.9 Anxiety disorder, unspecified; J45.909 Unspecified asthma, uncomplicated; I10 Essential (primary) hypertension; R31.29 Other microscopic hematuria; Z20.822 Contact with and (suspected) exposure to COVID-19; Z87.891 Personal history of nicotine dependence; Z88.6 Allergy status to analgesic agent; Z79.899 Other long term (current) drug therapy
CPT/HCPCS: 36415; 71045; 76775; 80048; 80076; 80307; 81001; 81003; 83605; 83690; 83735; 83880; 84484; 85025; 85027; 85379; 87040; 87086; 87635; 93005; 94640; 96365; 96366; 96368; 96375; 99285; 99291; J0456; J0696; J2930

== ENCOUNTER 2021-03-02 15:39 | Emergency (ER) | payer MEDICAID, SELFPAY ==
--- NOTE | ~2021-03-02 | XR_ITS ---
EXAMINATION: XR CHEST CLINICAL INFORMATION: SOB. COMPARISON: Chest 02/24/2021 TECHNIQUE: 2 views of the chest were obtained. FINDINGS: There is bandlike atelectasis left lung base.. Rest of lungs are well-expanded and clear. The heart size and pulmonary vascularity is normal. No gross bony abnormality seen. XR/XR chest 2V IMPRESSION: There is a left lower lobe bandlike atelectasis. Previously this was reported as an infiltrate on 02/24/2021.
[2021-03-02 15:42] VITALS: BP 141/80; PULSE 87; RESP 18; O2SAT 98; BMI 23.8
[2021-03-02 15:48] VITALS: TEMP 37.3
[2021-03-02 20:09] VITALS: BP 127/70; PULSE 71; RESP 18; TEMP 37; O2SAT 98
--- NOTE | 2021-03-02 20:24 | ED_ITS ---
HPI - SOB/Dyspnea General Chief Complaint: Dyspnea Stated Complaint: phuemonia Time Seen by Provider: 03/02/21 20:19 Source: patient Mode of arrival: ambulatory Limitations: no limitations History of Present Illness HPI Narrative: Patient comes emergency room complaining of shortness of breath. Patient states she was diagnosed with pneumonia on February 24, given Ceftin. Patient states she has sharp left-sided chest pain as well worse with inspiration. Patient states that she has been fully immunized since February 10. Patient denies fever, complaining of generalized malaise MD elicited complaint: shortness of breath and pain with inspiration Related Data Home Medications Medication Instructions Recorded Confirmed clonazepam 2 mg tablet 2 mg PO DAILY 11/23/20 02/24/21 quetiapine 400 mg tablet,extended 400 mg PO BEDTIME 11/23/20 02/24/21 release 24 hr atenolol 25 mg PO DAILY 12/23/20 02/24/21 Dulera 2 puff INHALATION BID 02/24/21 02/24/21 albuterol sulfate [ProAir HFA] 2 puff INHALATION Q4H PRN 02/24/21 02/24/21 cholecalciferol (vitamin D3) 25 mcg PO DAILY 02/24/21 02/24/21 [Vitamin D3] fluoxetine 10 mg PO DAILY 02/24/21 02/24/21 hydroxyzine HCl 50 mg PO TID 02/24/21 02/24/21 omeprazole 20 mg PO DAILY@0630 02/24/21 02/24/21 Previous Rx's Medication Instructions Recorded azithromycin 250 mg PO DAILY 3 Days #3 tab 02/26/21 cefuroxime axetil 500 mg PO BID 7 Days #10 tab 02/26/21 azithromycin 250 mg PO DAILY 5 Days #5 tab 03/02/21 Allergies Allergy/AdvReac Type Severity Reaction Status Date / Time aspirin [ASA] Allergy Severe Anaphylaxis Verified 03/02/21 15:42 ibuprofen [IBUPROFEN] Allergy Severe ANAPHYLAXIS, Verified 03/02/21 15:42 throat swelling zolpidem [From AMBIEN] Allergy Intermediate RASH, HIVES Verified 03/02/21 15:42 Review of Systems Review of Systems: Constitutional : No Weight loss, No Fever, No Chills, No Night Sweats, No Fatigue, No Malaise ENT/Mouth : No Hearing loss, No Ear Pain, No Nasal Congestion, No Sinus Pain, No Hoarseness, No sore throat, No Rhinorrhea, No Swallowing Difficulty Eyes: No Eye Pain, No Swelling, No Redness, No Foreign Body, No Discharge, No Vision Changes Cardiovascular : Left-sided sharp chest pain with deep inspiration, no exertional dyspnea No Orthopnea, No Edema, No Palpitations Respiratory : Complaining of dry cough, No Sputum, No Wheezing, No Smoke Exposure, complaining of worsening shortness of breath Gastrointestinal : No Nausea, No Vomiting, No Diarrhea, No Constipation, No abdominal Pain, No Hematochezia, No Melena Genitourinary : no irregular bleeding, No Dysuria, No Urinary Frequency, No Hematuria, No Urinary Incontinence, No Urgency, No Flank Pain, No Urinary Flow Changes, No Hesitancy Musculoskeletal : No joint pain, No Myalgias, No Joint Swelling Skin : No Skin Lesions, No rash Neuro : No Weakness, No Numbness, No Paresthesias, No Loss of Consciousness, No Dizziness, No Headache Psych : No Anxiety/Panic, No Depression, No SI/HI/AH/VH, No Social Issues, Heme/Lymph: No Bruising, No Bleeding,No Lymphadenopathy Endocrine : No Polyuria, No Polydipsia, No Temperature Intolerance PMFSH Past Medical History Medical History Anxiety Chronic diarrhea Depression Epigastric pain HTN (hypertension) Surgical History H/O tubal ligation History of appendectomy History of carpal tunnel release of both wrists Hx of colonoscopy Family History Family History Father Cancer Mother H/O: hysterectomy Daughter H/O: hysterectomy Paternal Grandfather Stomach cancer Social History Social History Household Members: None Housing: Apartment Alcohol intake: former Patient Tobacco Use Status: Former Tobacco user Advance Directives: No Advance Directives Information Provided: No Patient : No service: No Current occupational status: unemployed and disabled Physical Exam Vital Signs: Vital Signs: Last Vital Signs Temp 98.6 F 03/02/21 20:09 Pulse 71 03/02/21 20:09 Resp 18 03/02/21 20:09 BP 127/70 06/03/21 20:09 Pulse Ox 98 03/02/21 20:09 Body Mass Index 23.8 Appearance: Alert. Oriented X3. No acute distress. Eyes: Pupils equal, round and reactive to light. ENT: Pharynx normal. Raspy voice Neck: Normal inspection. Neck supple. No lymph nodes noted. No crepitus CVS: Normal heart rate and rhythm. Pulses normal. Normal S1 and S2 Respiratory: No respiratory distress. Left lower lobe crackles, no rales Abdomen: Soft and nontender. No rigidity. No distention. Skin: Skin warm and dry. Normal skin color. Normal skin turgor. Extremities: No lower extremity edema. No Lacerations. No Rash Neuro: Oriented X 3. No motor deficit. No sensory deficit. Moving all extermities. No slurred speech. Course Course Course Narrative: Patient's oxygen saturation remains at 99% on room air. Patient walked around the emergency room, her oxygen dropped to 96%, then immediately improved to 100%. Patient's white blood cell count improved, chest x-ray improved as well. Patient has 1 more day of her current antibiotic. Patient will likely benefit from a few more days antibiotic. Patient's D-dimer negative, overall patient is improving MDM - SOB/Dyspnea Lab Data Result diagrams: 03/02/21 20:48 03/02/21 20:48 Labs: Lab Results 03/02/21 03/02/21 03/02/21 Range/Units 20:48 20:48 20:48 WBC 11.1 H (4.8-10.8) X10*3/uL RBC 4.53 (4.20-5.50) X10*6/uL Hgb 13.6 (12.0-16.0) g/dl Hct 39.8 (37-47) % MCV 87.9 D (80-98) fL MCH 30.0 (27.0-33.0) pg MCHC 34.2 (31.0-35.0) g/dl RDW 12.4 (11.0-16.0) % Plt Count 406 H D (160-400) X10*3/uL MPV 9.0 L (9.4-12.3) fL Immature Gran % (Auto) 1.4 H (0.0-0.4) % Neut % (Auto) 54.2 (45-73) % Lymph % (Auto) 29.9 (20-40) % [place] % (Auto) 7.4 (2-11) % Eos % (Auto) 6.6 H (0-4) % Baso % (Auto) 0.5 (0-2) % Lymph # (Auto) 3.3 (1.2-4.9) X10*3/uL [place] # (Auto) 0.8 (0.1-1.2) X10*3/uL Eos # (Auto) 0.7 H (0.0-0.4) X10*3/uL Baso # (Auto) 0.1 (0.0-0.2) X10*3/uL Abs Immat Gran (auto) 0.16 H (0.00-0.03) X10*3/uL Absolute Neuts (auto) 6.0 (2.0-8.3) X10*3/uL Absolute Nucleated RBC 0.000 (0.0-0.012) X10*3/uL Nucleated RBC % (auto) 0.0 (0.0-0.2) /100WBC D-Dimer < 200 NG/ML Sodium 137 (135-145) mmol/L Potassium 4.6 (3.3-5.1) mmol/L Chloride 103 (96-108) mmol/L Carbon Dioxide 23 (22-29) mmol/L Anion Gap 16 (12-20) BUN 13 (9-16) mg/dL Creatinine 0.78 (0.5-1.4) mg/dL Estim Creat Clear Calc 64.3 Estimated GFR > 60 Random Glucose 86 (60-115) mg/dL Calcium 9.9 D (8.4-10.2) mg/dL Troponin I High Sens (<3.5-17.0) ng/L COVID-19 (BRENDA) (Negative) COVID-19 Clin Com 03/02/21 03/02/21 Range/Units 20:48 20:48 WBC (4.8-10.8) X10*3/uL RBC (4.20-5.50) X10*6/uL Hgb (12.0-16.0) g/dl Hct (37-47) % MCV (80-98) fL MCH (27.0-33.0) pg MCHC (31.0-35.0) g/dl RDW (11.0-16.0) % Plt Count (160-400) X10*3/uL MPV (9.4-12.3) fL Immature Gran % (Auto) (0.0-0.4) % Neut % (Auto) (45-73) % Lymph % (Auto) (20-40) % [place] % (Auto) (2-11) % Eos % (Auto) (0-4) % Baso % (Auto) (0-2) % Lymph # (Auto) (1.2-4.9) X10*3/uL [place] # (Auto) (0.1-1.2) X10*3/uL Eos # (Auto) (0.0-0.4) X10*3/uL Baso # (Auto) (0.0-0.2) X10*3/uL Abs Immat Gran (auto) (0.00-0.03) X10*3/uL Absolute Neuts (auto) (2.0-8.3) X10*3/uL Absolute Nucleated RBC (0.0-0.012) X10*3/uL Nucleated RBC % (auto) (0.0-0.2) /100WBC D-Dimer NG/ML Sodium (135-145) mmol/L Potassium (3.3-5.1) mmol/L Chloride (96-108) mmol/L Carbon Dioxide (22-29) mmol/L Anion Gap (12-20) BUN (9-16) mg/dL Creatinine (0.5-1.4) mg/dL Estim Creat Clear Calc Estimated GFR Random Glucose (60-115) mg/dL Calcium (8.4-10.2) mg/dL Troponin I High Sens < 3.5 (<3.5-17.0) ng/L COVID-19 (BRENDA) Negative (Negative) COVID-19 Clin Com See Note Imaging Data Chest x-ray: Radiologist's impression: FINDINGS: There is bandlike atelectasis left lung base.. Rest of lungs are well-expanded and clear. The heart size and pulmonary vascularity is normal. No gross bony abnormality seen. XR/XR chest 2V IMPRESSION: There is a left lower lobe bandlike atelectasis. Previously this was reported as an infiltrate on 02/24/2021. Discharge Plan Discharge Clinical Impression: Pneumonia Qualifiers: Pneumonia type: due to unspecified organism Lung location: unspecified part of lung Patient Disposition: Home, Self-Care Instructions: Pneumonia (ED) Additional Instructions: Please follow-up with your primary care physician tomorrow. If you have any worsening or new symptoms, please return to the emergency room or call 911 Prescriptions: New azithromycin 250 mg tablet 250 mg PO DAILY 5 Days Qty: 5 RF: 0 No Action atenolol 25 mg tablet 25 mg PO DAILY RF: 0 hydroxyzine HCl 50 mg Tablet 50 mg PO TID RF: 0 fluoxetine 10 mg Capsule 10 mg PO DAILY RF: 0 cholecalciferol (vitamin D3) [Vitamin D3] 25 mcg (1,000 unit) Tablet 25 mcg PO DAILY RF: 0 Dulera 200-5 mcg/actuation Hfa Aerosol Inhaler 2 puff INHALATION BID RF: 0 omeprazole 20 mg Capsule,Delayed Release(Dr/Ec) 20 mg PO DAILY@0630 RF: 0 albuterol sulfate [ProAir HFA] 90 mcg/actuation Hfa Aerosol Inhaler 2 puff INHALATION Q4H PRN (Reason: Respiratory Distress) RF: 0 cefuroxime axetil 500 mg tablet 500 mg PO BID 7 Days Qty: 10 RF: 0 azithromycin 250 mg tablet 250 mg PO DAILY 3 Days Qty: 3 RF: 0 clonazepam 2 mg tablet 2 mg PO DAILY RF: 0 quetiapine [Seroquel XR] 400 mg tablet extended release 24 hr 400 mg PO BEDTIME RF: 0
[2021-03-02 20:53] LABS: MANUAL DIFF FLAG NO
[2021-03-02 20:55] LABS: Basophils Absolute Auto 0.1 X10*3/uL (0.0-0.2); Basophils Percent Auto 0.5 % (0-2); Eosinophils Absolute Auto 0.7 X10*3/uL (0.0-0.4); Eosinophils Percent Auto 6.6 % (0-4); Hematocrit 39.8 % (37-47); Hemoglobin 13.6 g/dl (12.0-16.0); Imm Gran Abs Auto 0.16 X10*3/uL (0.00-0.03); Imm Gran Pct Auto 1.4 % (0.0-0.4); Lymphocytes Absolute Auto 3.3 X10*3/uL (1.2-4.9); Lymphocytes Percent Auto 29.9 % (20-40); Mean Corpuscular HGB Conc 34.2 g/dl (31.0-35.0); Mean Corpuscular Volume 87.9 fL (80-98); Monocytes Absolute Auto 0.8 X10*3/uL (0.1-1.2); Monocytes Percent Auto 7.4 % (2-11); Neutrophils Percent Auto 54.2 % (45-73); Platelet Count 406 X10*3/uL (160-400); Red Blood Count 4.53 X10*6/uL (4.20-5.50); Red Cell Distribution Width 12.4 % (11.0-16.0); White Blood Count 11.1 X10*3/uL (4.8-10.8)
[2021-03-02 21:12] LABS: D Dimer < 200 NG/ML
[2021-03-02 21:13] LABS: COVID-19 Test Negative (Negative)
[2021-03-02 21:22] LABS: Anion Gap 16 (12-20); Blood Urea Nitrogen 13 mg/dL (9-16); Calcium 9.9 mg/dL (8.4-10.2); Carbon Dioxide 23 mmol/L (22-29); Chloride 103 mmol/L (96-108); Creatinine Clr Calc Pharmacy 64.3; Estimated Glomerular Filt Rate > 60; Glucose Random 86 mg/dL (60-115); Potassium 4.6 mmol/L (3.3-5.1); Sodium 137 mmol/L (135-145)
[2021-03-02 21:29] LABS: Troponin-I High Sensitivity < 3.5 ng/L (<3.5-17.0)
--- NOTE | 2021-03-02 22:03 | PC.NURSE ---
ambulated the patient while monitoring their SPO2. Patients SPO2 started around 96-98 and then climbed to 100 where it stayed for the duration of the ambulation. However, patient produced audible labored breathing throughout the session, medium pitch wheezes.
== END 2021-03-02 22:50 | disposition home or self-care (01) ==
PROVIDERS: Emergency Provider Emergency Medicine; PCP Family Medicine
DX: J18.9 Pneumonia, unspecified organism (principal); R06.02 Shortness of breath; Z20.822 Contact with and (suspected) exposure to COVID-19; Z79.899 Other long term (current) drug therapy
CPT/HCPCS: 36415; 71046; 80048; 84484; 85025; 85379; 87635; 99283

== ENCOUNTER → 2021-03-28 09:26 | Outpatient (BNVA) | payer MEDICAID, SELFPAY | PROVIDERS: PCP Family Medicine; Visit Provider Internal Medicine Gastroenterology ==

== ENCOUNTER 2022-07-30 10:04 | Outpatient (REF) | payer MEDICAID, SELFPAY ==
[2022-07-30 11:22] LABS: MANUAL DIFF FLAG NO
[2022-07-30 11:54] LABS: Basophils Percent Auto 0.5 % (0-2); Eosinophils Absolute Auto 0.3 X10*3/uL (0.0-0.4); Eosinophils Percent Auto 3.1 % (0-4); Hemoglobin 14.3 g/dl (12.0-16.0); Imm Gran Abs Auto 0.04 X10*3/uL (0.00-0.03); Imm Gran Pct Auto 0.5 % (0.0-0.4); Lymphocytes Absolute Auto 2.6 X10*3/uL (1.2-4.9); Lymphocytes Percent Auto 30.6 % (20-40); Mean Corpuscular Hemoglobin 30.4 pg (27.0-33.0); Mean Corpuscular Volume 89.2 fL (80.0-98.0); Mean Platelet Volume 10.6 fL (9.4-12.3); Monocytes Absolute Auto 0.6 X10*3/uL (0.1-1.2); Monocytes Percent Auto 6.5 % (2-11); Neutrophils Absolute Auto 5.1 x10*3/uL (2.0-8.3); Neutrophils Percent Auto 58.8 % (45-73); Platelet Count 308 X10*3/uL (160-400); Red Blood Count 4.71 X10*6/uL (4.20-5.50); Red Cell Distribution Width 12.5 % (11.0-16.0); White Blood Count 8.6 X10*3/uL (4.8-10.8)
[2022-07-30 12:30] LABS: Erythrocyte Sedimentation Rate 10 MM/HR (0-20)
[2022-07-30 12:45] LABS: Alanine Aminotransferase 29 U/L (0-31); Albumin Level 4.4 g/dL (3.5-5.0); Alkaline Phosphatase 78 U/L (39-117); Anion Gap 13 (12-20); Aspartate Amino Transferase 19 U/L (5-31); Bilirubin Total 0.5 mg/dL (0.0-1.0); Blood Urea Nitrogen 14 mg/dL (9-16); C Reactive Protein 0.27 mg/dL (< or = 0.50); Calcium 9.8 mg/dL (8.4-10.2); Carbon Dioxide 27 mmol/L (22-29); Chloride 105 mmol/L (96-108); Estimated Glomerular Filt Rate > 60; Glucose Random 87 mg/dL (60-115); Potassium 4.5 mmol/L (3.3-5.1); Sodium 140 mmol/L (135-145); Total Protein 6.9 g/dL (6.5-8.0)
[2022-07-30 12:51] LABS: Ferritin 81 ng/mL (10-250); TSH reflex Free T4 0.68 uIU/mL (0.32-4.0); Vitamin D 25-OH Total 33.6 ng/mL (>30)
[2022-07-30 12:56] LABS: HBS Num1 3.49 mIU/mL (0-7.99); HBc Num1 0.06 S/CO (0.00-0.79); HIV AB/AG Nonreactive (Nonreactive); HIV Num 1 0.08 S/CO (0.00-0.99); Hepatitis B Core Antibody Nonreactive (Nonreactive); Hepatitis B Surface Antigen Negative (Negative); ~HepC Num1 0.05 S/CO (0.00-0.79); ~Hepatitis B Surface Antibody NONREACTIVE (Nonreactive); ~Hepatitis C Antibody Nonreactive (Nonreactive)
[2022-07-30 13:02] LABS: Folate 10.9 ng/mL (> or = 4.0); Vitamin B12 259 pg/mL (200-900)
[2022-07-30 13:51] LABS: Appearance Urine Clear; Color Urine Yellow; Glucose Urine UA Negative (Negative); Leukocyte Esterase Urine Negative (Negative); Nitrite Urine Negative (Negative); PH 6.5 (5.0-9.0); UMIC TRIGGER UACC YES; Urine Blood Large (3+) (Negative); Urine Ketones Negative (Negative); Urine Protein Trace mg/dL (Neg-Trace)
[2022-07-30 14:20] LABS: Bacteria Urine None Seen (None Seen); Hyaline Casts Urine 0-2 /LPF (0-2); WBC Urine 0-5 /HPF (0-5)
[2022-07-31 23:37] LABS: Transglutaminase Ab IgG <1.0 U/mL; Transglutaminase IgA <1.0 U/mL
[2022-08-01 08:08] LABS: Hepatitis A Antibody IgM 0.13 Index (0-0.79); ~Hepatitis A Antibody IgM Nonreactive (Nonreactive)
[2022-08-01 14:36] LABS: Immunoglobulin G 916 mg/dL (600-1640)
[2022-08-02 06:46] LABS: Zinc 80 mcg/dL (60-130)
[2022-08-02 12:56] LABS: Anti Nuclear Antibody Screen POSITIVE (NEGATIVE)
[2022-08-03 17:22] LABS: Vitamin C 0.2 mg/dL (0.3-2.7)
[2022-08-03 17:37] LABS: Nicotinamide <20 ng/mL; Vit B3 - Nicotinic Acid <20 ng/mL; Vitamin B5 (Pantothenic Acid) <40 ng/mL (<275)
[2022-08-03 18:32] LABS: Alpha-Tocopherol 10.6 mg/L (5.7-19.9); Beta-Gamma Tocopherol 1.3 mg/L (<=4.3); Vitamin A 56 mcg/dL (38-98)
[2022-08-04 18:47] LABS: Vitamin B6 7.9 ng/mL (2.1-21.7)
[2022-08-04 23:56] LABS: Vitamin K1 368 pg/mL (130-1500)
[2022-08-06 11:37] LABS: Vitamin B1 9 nmol/L (8-30)
== END 2022-07-30 10:05 | disposition home or self-care (01) ==
LOC: HO.LAB 10:04
PROVIDERS: PCP Family Medicine; Visit Provider Internal Medicine Gastroenterology
DX: K52.9 Noninfective gastroenteritis and colitis, unspecified (principal); K75.81 Nonalcoholic steatohepatitis (NASH); K52.839 Microscopic colitis, unspecified; K64.9 Unspecified hemorrhoids; R10.13 Epigastric pain; R63.4 Abnormal weight loss; R11.2 Nausea with vomiting, unspecified; R32 Unspecified urinary incontinence; R79.82 Elevated C-reactive protein (CRP); G89.29 Other chronic pain; R10.33 Periumbilical pain; R30.0 Dysuria
CPT/HCPCS: 36415; 80053; 81001; 81003; 82180; 82306; 82607; 82728; 82746; 82784; 84207; 84425; 84443; 84446; 84590; 84591; 84597; 84630; 85025; 85652; 86038; 86039; 86140; 86364; 86704; 86706; 86709; 86803; 87340; 87389; 99212

== ENCOUNTER 2022-08-07 08:48 | Outpatient (REF) | payer MEDICAID, SELFPAY ==
--- NOTE | ~2022-08-07 | CT_ITS ---
EXAMINATION: CT ABDOMEN AND PELVIS WITH CONTRAST CLINICAL INFORMATION: Epigastric pain COMPARISON: Previous CT of the abdomen and pelvis September 2018, pelvic ultrasound September 2018 and renal ultrasound January 2021 . TECHNIQUE: Multidetector volumetric images were obtained from the superior aspect of the liver through the pubic symphysis following administration 85 mL of Omnipaque 350 intravenous contrast. Sagittal and coronal reformatted images were obtained on the technologist's workstation. Oral contrast: No This CT examination was performed using dose optimization techniques as appropriate, variously including the following: *Automated exposure control *Adjustment of mA and/or kV according to patient size (this includes techniques or standardized protocols for targeted exams where dose is matched to indication/reason for exam; i.e. extremities or head) *Use of iterative reconstruction technique DLP: 401.22 mGy-cm FINDINGS: LUNG BASES: The visualized lung bases are unremarkable. LIVER, GALLBLADDER, AND BILIARY TREE: The liver is normal in size and shape. Fatty liver. The gallbladder is unremarkable with no evidence of radiopaque gallstones, gallbladder wall thickening, or obvious pericholecystic inflammatory changes. PANCREAS: Unremarkable. SPLEEN: Unremarkable. ADRENAL GLANDS: Unremarkable. KIDNEYS AND URETERS: 2.0 cm left renal cyst. The kidneys are otherwise normal. BLADDER: Unremarkable. GASTROINTESTINAL TRACT: The small and large bowel are unremarkable. The appendix is unremarkable. ABDOMINAL WALL: Ventral or supraumbilical hernias containing fat. Small umbilical hernia containing fat. LYMPH NODES: Normal. VASCULAR: Unremarkable. PELVIC VISCERA: Unremarkable. OSSEOUS STRUCTURES: Unremarkable. CT/CT abdomen pelvis w IV con IMPRESSION: Ventral or supraumbilical hernias containing fat and small umbilical hernia containing fat. Left renal cyst. Fatty liver. Fleischner guidelines were followed.
[2022-08-07] MEDS: iohexoL 350 MG/ML 100 ML INFUS..BTL IV (09:26)
== END 2022-08-07 08:49 | disposition home or self-care (01) ==
LOC: HO.CT 08:48
PROVIDERS: Visit Provider Internal Medicine Gastroenterology
DX: R10.13 Epigastric pain (principal); K52.9 Noninfective gastroenteritis and colitis, unspecified; R11.2 Nausea with vomiting, unspecified; R32 Unspecified urinary incontinence; R63.4 Abnormal weight loss
CPT/HCPCS: 74177; Q9967

== ENCOUNTER 2022-08-13 16:11 | Outpatient (REF) | payer MEDICAID, SELFPAY ==
[2022-08-14 13:58] LABS: H Pylori Breath Test Positive (Negative)
== END 2022-08-13 16:12 | disposition home or self-care (01) ==
LOC: HO.LNP 16:11
PROVIDERS: Visit Provider Internal Medicine Gastroenterology
DX: R10.13 Epigastric pain (principal); R63.4 Abnormal weight loss; K52.9 Noninfective gastroenteritis and colitis, unspecified; R11.2 Nausea with vomiting, unspecified; R32 Unspecified urinary incontinence; Z11.0 Encounter for screening for intestinal infectious diseases
CPT/HCPCS: 83013

== ENCOUNTER 2022-09-27 13:48 | Outpatient (REF) | payer MEDICAID, SELFPAY ==
--- NOTE | ~2022-09-27 | MM_ITS ---
EXAMINATION: MM DIAGNOSTIC DIGITAL BREAST TOMOSYNTHESIS, BILATERAL US TARGETED BREAST, LEFT CLINICAL INFORMATION: Left lateral breast pain and lump. The lifetime risk of breast cancer based on the Tyrer-Cuzick Model is 8%. COMPARISON: Mammography: 12/20/2020 and studies dating back to 03/22/2016. TECHNIQUE: Digital breast tomosynthesis is performed in both the craniocaudal and mediolateral oblique views along with computer-aided detection (CAD). Synthesized 2D images are generated from the tomosynthesis. Targeted left breast ultrasound. FINDINGS: There are scattered areas of fibroglandular density (ACR BI-RADS breast composition category B). There are no significant masses, abnormal calcifications, or other abnormalities. Targeted left breast ultrasound did not demonstrate any abnormal cystic or solid mass. No region of abnormal distal sound shadowing was appreciated. No edematous change within the parenchyma is seen. Results are discussed with the patient at time of visit. MM/MM tomosynthesis diagnostic BI IMPRESSION: No mammographic or ultrasound evidence of malignancy. ASSESSMENT: BI-RADS 1: Negative RECOMMENDATION: Routine annual mammography screening. Clinical follow up for palpable abnormality. This patient's information was entered into a reminder system with a target due date for their next mammogram.
== END 2022-09-27 13:49 | disposition home or self-care (01) ==
LOC: HO.MAMMO 13:48
PROVIDERS: PCP Family Medicine; Visit Provider Family Medicine
DX: N64.4 Mastodynia (principal)
CPT/HCPCS: 76642; 77062; 77066

== ENCOUNTER → 2022-11-26 08:23 | Outpatient (BNVA) | payer MEDICAID, SELFPAY | PROVIDERS: PCP Family Medicine; Referring Provider Family Medicine; Visit Provider Internal Medicine Gastroenterology | DX: R19.7 Diarrhea, unspecified (principal); A04.8 Other specified bacterial intestinal infections | CPT/HCPCS: 99212 ==

== ENCOUNTER 2022-11-26 09:28 | Observation (INO) | payer MEDICAID, SELFPAY ==
--- NOTE | ~2022-11-26 | CT_ITS ---
EXAMINATION: CT ABDOMEN AND PELVIS WITH CONTRAST CLINICAL INFORMATION: Diffuse abdominal pain and tenderness. Nausea/vomiting and diarrhea COMPARISON: CT abdomen pelvis 08/07/2022 TECHNIQUE: Multidetector volumetric images were obtained from the superior aspect of the liver through the pubic symphysis following administration 85 mL of Omnipaque 350 intravenous contrast. Sagittal and coronal reformatted images were obtained on the technologist's workstation. Oral contrast: No This CT examination was performed using dose optimization techniques as appropriate, variously including the following: *Automated exposure control *Adjustment of mA and/or kV according to patient size (this includes techniques or standardized protocols for targeted exams where dose is matched to indication/reason for exam; i.e. extremities or head) *Use of iterative reconstruction technique DLP: 380 mGy-cm FINDINGS: LUNG BASES: There is minimal atelectasis or scarring left lung base. Heart size is normal. LIVER, GALLBLADDER, AND BILIARY TREE: The liver is normal in size, shape, and diffusely hypoattenuated. The areas of focal fatty sparing right hepatic lobe adjacent to gallbladder. No focal solid lesion or intrahepatic ductal dilatation seen. The gallbladder is unremarkable with no evidence of radiopaque gallstones, gallbladder wall thickening, or obvious pericholecystic inflammatory changes. PANCREAS: Unremarkable. SPLEEN: Unremarkable. ADRENAL GLANDS: Unremarkable. KIDNEYS AND URETERS: The kidneys are normal in size, shape, and attenuation. No hydronephrosis, hydroureter, or calculi seen. No perinephric stranding. There is a simple cyst midpole measuring 2.4 cm. Is unchanged. BLADDER: Unremarkable. GASTROINTESTINAL TRACT: There is scattered stool and gas seen throughout the colon without distention. There is fluid-filled nondistended distal ileum. Appendix is not seen with certainty. There is no inflammatory process in the abdomen. The stomach is nondistended. No free air or free fluid seen.. ABDOMINAL WALL: There is supraumbilical small hernia containing fat. LYMPH NODES: Normal. VASCULAR: Unremarkable. PELVIC VISCERA: A retroverted uterus is noted. No free fluid seen. OSSEOUS STRUCTURES: Unremarkable. CT/CT abdomen pelvis w IV con IMPRESSION: 1. No acute intra-abdominal process seen. 2. Mild constipation. Fluid-filled nonspecific distal ileal loops. Appendix is not visualized. 3. Small supraumbilical hernia containing fat. Fleischner guidelines were followed.
[2022-11-26 09:31] VITALS: BP 170/77; PULSE 61; RESP 18; TEMP 36.6; O2SAT 99; BMI 24.4
[2022-11-26 09:45] LABS: MANUAL DIFF FLAG NO
[2022-11-26 09:50] LABS: Basophils Absolute Auto 0.1 X10*3/uL (0.0-0.2); Basophils Percent Auto 0.3 % (0-2); Eosinophils Absolute Auto 0.2 X10*3/uL (0.0-0.4); Eosinophils Percent Auto 0.9 % (0-4); Hematocrit 44.2 % (37.0-47.0); Hemoglobin 15.2 g/dl (12.0-16.0); Imm Gran Abs Auto 0.08 X10*3/uL (0.00-0.03); Imm Gran Pct Auto 0.5 % (0.0-0.4); Lymphocytes Absolute Auto 3.9 X10*3/uL (1.2-4.9); Lymphocytes Percent Auto 22.2 % (20-40); Mean Corpuscular HGB Conc 34.4 g/dl (31.0-35.0); Mean Corpuscular Volume 90.2 fL (80.0-98.0); Mean Platelet Volume 10.5 fL (9.4-12.3); Monocytes Absolute Auto 0.9 X10*3/uL (0.1-1.2); Monocytes Percent Auto 5.2 % (2-11); Neutrophils Absolute Auto 12.5 x10*3/uL (2.0-8.3); Neutrophils Percent Auto 70.9 % (45-73); Platelet Count 379 X10*3/uL (160-400); Red Cell Distribution Width 12.5 % (11.0-16.0); White Blood Count 17.6 X10*3/uL (4.8-10.8)
[2022-11-26 10:01] VITALS: BP 143/76; PULSE 46; RESP 17; TEMP 36.6; O2SAT 99
[2022-11-26 10:06] LABS: Anion Gap 13 (12-20); Blood Urea Nitrogen 13 mg/dL (9-16); Calcium 9.9 mg/dL (8.4-10.2); Carbon Dioxide 19 mmol/L (22-29); Chloride 110 mmol/L (96-108); Creatinine Clr Calc Pharmacy 60.4; Estimated Glomerular Filt Rate > 60; Glucose Random 109 mg/dL (60-115); Potassium 4.4 mmol/L (3.3-5.1); Sodium 138 mmol/L (135-145)
[2022-11-26] MEDS: 0.9 % Sodium Chloride 1,000 ML 999 ML IV ×2 (10:33→11:52)
[2022-11-26] MEDS: ondansetron HCL 4 MG/2 ML VIAL IVPUSH (10:33)
[2022-11-26] MEDS: Morphine Sulfate 2 MG/ML CARTRIDGE IVPUSH ×2 (10:33→14:34)
[2022-11-26] MEDS: iohexoL 350 MG/ML 100 ML INFUS..BTL 85 ML IV (10:42)
[2022-11-26 10:44] LABS: Alanine Aminotransferase 29 U/L (0-31); Albumin Level 4.6 g/dL (3.5-5.0); Alkaline Phosphatase 71 U/L (39-117); Aspartate Amino Transferase 20 U/L (5-31); Bilirubin Direct 0.2 mg/dL (0.0-0.5); Bilirubin Total 0.7 mg/dL (0.0-1.0); Lipase 15 U/L (8-78); Total Protein 7.3 g/dL (6.5-8.0)
[2022-11-26 11:16] LABS: COVID-19 Test Negative (Negative); IDNOW Serial# 16C4AD1C
--- NOTE | 2022-11-26 11:55 | ED_ITS ---
HPI - Nausea/Vomiting/Diarrhea General Chief complaint: Nausea/Vomiting/Diarrhea Stated complaint: dehydration Time Seen by Provider: 11/26/22 10:08 Source: patient Mode of arrival: ambulatory History of Present Illness HPI Narrative: 57-year-old female with a past medical history of anxiety, chronic diarrhea, depression, HTN, H pylori, presenting to the ED sent Gastroenterology office complaining abdominal pain, nausea, nonbloody emesis and diarrhea x few days. Reports inability to tolerate p.o. Reports about 30 episodes of emesis x2 days. denies fever, chills, suspicious food intake, recent travel, dysuria/hematuria. MD elicited complaint: nausea, vomiting, diarrhea and abdominal pain Related Data Home Medications Medication Instructions Recorded Confirmed atenolol 25 mg tablet 25 mg PO DAILY 12/23/20 03/28/21 albuterol sulfate 90 mcg/actuation 2 puff inhalation Q4H PRN 02/24/21 03/28/21 aerosol inhaler (ProAir HFA) Respiratory Distress hydroxyzine HCl 50 mg tablet 50 mg PO TID 02/24/21 03/28/21 mometasone-formoterol HFA 200 2 puff inhalation BID 02/24/21 03/28/21 mcg-5 mcg/actuation aerosol inhaler (Dulera) omeprazole 20 mg capsule,delayed 20 mg PO DAILY@0630 02/24/21 03/28/21 release bupropion HCl 150 mg 24 hr tablet, 150 mg PO QAM 07/30/22 extended release cholecalciferol (vitamin D3) 25 25 mcg PO QAM 07/30/22 mcg (1,000 unit) capsule (Vitamin D3) clonazepam 1 mg tablet 1 mg PO BID PRN 07/30/22 hydrocortisone 2.5 % topical cream SD TID 07/30/22 with perineal applicator quetiapine 100 mg tablet 100 mg PO BEDTIME 07/30/22 quetiapine 200 mg tablet 200 mg PO BEDTIME 07/30/22 Previous Rx's Medication Instructions Recorded sucralfate 100 mg/mL oral 10 ml PO QIDACHS #1,000 mL 07/30/22 suspension pantoprazole 20 mg tablet,delayed 20 mg PO BID 2 weeks #28 tabs 10/03/22 release Allergies Allergy/AdvReac Type Severity Reaction Status Date / Time aspirin [ASA] Allergy Severe Anaphylaxis Verified 11/26/22 08:46 ibuprofen [IBUPROFEN] Allergy Severe ANAPHYLAXIS, Verified 11/26/22 08:46 throat swelling zolpidem [From AMBIEN] Allergy Intermediate RASH, HIVES Verified 11/26/22 08:46 Review of Systems Review of Systems: Constitutional: No Fever, No Chills, No Fatigue, No Malaise ENT/Mouth: No Ear Pain, No Nasal Congestion, No sore throat, No Rhinorrhea, No Swallowing Difficulty Eyes: No Eye Pain, No Swelling, No Redness, No Vision Changes Cardiovascular: No Chest Pain, No SOB, No Dyspnea on Exertion, No Orthopnea, No Edema, No Palpitations Respiratory: No Cough, No Sputum, No Dyspnea Gastrointestinal: + Nausea, + Vomiting, + Diarrhea, No Constipation, + Abdominal pain Genitourinary: No Dysuria, No Urinary Frequency, No Hematuria, No Flank Pain, No Urinary Flow Changes, No Hesitancy Musculoskeletal: No joint pain, No Myalgias, No Joint Swelling Skin: No Skin Lesions, No rash Neuro: No Weakness, No Numbness, No Paresthesias, No Loss of Consciousness, No Dizziness, No Headache Yes all other systems are reviewed and are negative Constitutional: Constitutional: Reports as per [facility] Past Medical History Attestation statement: The following information was validated with the patient. Medical History (Updated 11/26/22 @ 13:49 by FLORENCIA Holloway) Abdominal pain Anxiety Chronic diarrhea Depression Epigastric pain HTN (hypertension) Surgical History H/O tubal ligation History of appendectomy History of carpal tunnel release of both wrists Hx of colonoscopy Family History Family History Father Cancer Mother H/O: hysterectomy Daughter H/O: hysterectomy Paternal Grandfather Stomach cancer Social History Social History Household Members: None Housing: Apartment Alcohol intake: former Patient Tobacco Use Status: Former Tobacco user Advance Directives: No Advance Directives Information Provided: Yes service: No Current occupational status: unemployed and disabled Physical Exam Vital Signs: Vital Signs: Last Vital Signs Temp 98 F 11/26/22 13:40 Pulse 53 11/26/22 13:40 Resp 17 11/26/22 13:40 BP 121/67 11/26/22 13:40 Pulse Ox 100 11/26/22 13:40 O2 Del Method 11/26/22 13:40 BMI result Body Mass Index 24.4 Const: General: cooperative, healthy appearing and no acute distress Orientation/consciousness: patient oriented x3 Limitations: no limitations HEENT: Head: Yes normal to inspection and Yes atraumatic Ears: hearing grossly normal bilaterally General nose exam: Normal external nose present Face and sinus: Yes normal facial exam Eyes: General: appearance normal, both eyes and all related structures EOM: EOMs intact bilaterally Neck: Neck: Yes normal visual inspection and Yes no meningeal signs Resp: Effort & Inspection: normal respiratory effort and no respiratory distress Auscultation: clear to auscultation bilaterally Cardio: Rate: regular rate Heart sounds: S1 normal heart sound present and S2 normal heart sound present GI: Inspection: Yes normal to inspection Palpation (GI): Soft to palpation, Tenderness to palpation present (GI) (Diffusely) with no rebound tenderness, no guarding and not rigid : General: Yes no CVA tenderness Back/Spine/Pelvis: Back: no CVA tenderness Skin: Rashes: no rashes Wounds: no wounds Neuro: General: patient oriented x3, tone normal and no meningeal signs Gait exam (Neuro): Normal gait present Extrem: General: Yes normal to inspection Course Course Course Narrative: -1202--noted leukocytosis of 17.6 likely reactive from pain, nausea and vomiting. Still low suspicion for severe sepsis at this time -labs otherwise reassuring 1306--CT abdomen pelvis w IV con IMPRESSION: 1.? No acute intra-abdominal process seen. 2.? Mild constipation. Fluid-filled nonspecific distal ileal loops. Appendix is not visualized. 3.? Small supraumbilical hernia containing fat. ? Fleischner guidelines were followed. > upon re-evaluation patient reports mild symptomatic improvement, abdomen soft still diffusely tender, no rebound or guarding. Will consult General surgery >1347--Dr. Ramos evaluated patient, will admit to hospitalist for further management, IVF, and pain control. Medications Administered Discontinued Medications Generic Name Dose Route Start Last Admin Trade Name Freq PRN Reason Stop Dose Admin Sodium Chloride 1,000 mls @ 999 mls/hr 11/26/22 10:30 11/26/22 13:16 Ns IV 11/26/22 11:30 Infused .Q1H1M SUNDEEP Infusion Sodium Chloride 1,000 mls @ 999 mls/hr 11/26/22 11:45 11/26/22 13:16 Ns IV 11/26/22 12:45 Infused .Q1H1M SUNDEEP Infusion Iohexol 85 ml 11/26/22 10:42 11/26/22 10:42 Iohexol 350 Mg/Ml 100 Ml Infus..Btl IV 11/26/22 10:43 85 ml ONCE ONE Administration Morphine Sulfate 2 mg 11/26/22 10:20 11/26/22 10:33 Morphine Sulfate 2 Mg/Ml Cartridge IVPUSH 11/26/22 10:21 2 mg ONCE ONE Administration Protocol Ondansetron HCl 4 mg 11/26/22 10:20 11/26/22 10:33 Ondansetron Hcl 4 Mg/2 Ml Vial IVPUSH 11/26/22 10:21 4 mg ONCE ONE Administration Medical Decision Making Medical Decision Making MDM Narrative: 57-year-old female with a past medical history of anxiety, chronic diarrhea, depression, HTN, H pylori, presenting to the ED sent Gastroenterology office c omplaining abdominal pain, nausea, nonbloody emesis and diarrhea x few days. On exam vital signs stable, NAD, abdomen soft diffusely tender, no rebound or guarding. Concern for gastroenteritis vs viral syndrome. Rule out diverticulitis/appendicitis and pancreatitis. Lower suspicion for cholecyst itis/lithiasis. Rule out metabolic abnormalities. Low concern for severe sepsis at this time Plan: Labs, UA, CT AP, IVF, antiemetics, re-evaluation Please refer to course for remaining clinical decision making, interpretation of labs/imaging results, and discussions with consultants and/or family members. Differential Diagnosis Differential Diagnoses: The differential diagnosis associated with the presentation includes as above Admission/Observation Consideration of admission/observation: Escalation of care including admission/observation considered Consult Healthcare Provider Management of the patient was discussed with: Hospitalist and [employer] Technical Architect Lab Data [facility] Lab Attestation statement: I reviewed the patient's lab results. 11/26/22 09:40 11/26/22 09:40 Labs: Lab Results 11/26/22 11/26/22 11/26/22 Range/Units 09:40 09:40 11:00 WBC 17.6 H (4.8-10.8) X10*3/uL RBC 4.90 (4.20-5.50) X10*6/uL Hgb 15.2 (12.0-16.0) g/dl Hct 44.2 (37.0-47.0) % MCV 90.2 (80.0-98.0) fL MCH 31.0 (27.0-33.0) pg MCHC 34.4 (31.0-35.0) g/dl RDW 12.5 (11.0-16.0) % Plt Count 379 (160-400) X10*3/uL MPV 10.5 (9.4-12.3) fL Immature Gran % (Auto) 0.5 H (0.0-0.4) % Neut % (Auto) 70.9 (45-73) % Lymph % (Auto) 22.2 (20-40) % [place] % (Auto) 5.2 (2-11) % Eos % (Auto) 0.9 (0-4) % Baso % (Auto) 0.3 (0-2) % Lymph # (Auto) 3.9 (1.2-4.9) X10*3/uL [place] # (Auto) 0.9 (0.1-1.2) X10*3/uL Eos # (Auto) 0.2 (0.0-0.4) X10*3/uL Baso # (Auto) 0.1 (0.0-0.2) X10*3/uL Abs Immat Gran (auto) 0.08 H (0.00-0.03) X10*3/uL Absolute Neuts (auto) 12.5 H (2.0-8.3) x10*3/uL Absolute Nucleated RBC 0.000 (0.0-0.012) X10*3/uL Nucleated RBC % (auto) 0.0 (0.0-0.2) /100WBC Sodium 138 (135-145) mmol/L Potassium 4.4 (3.3-5.1) mmol/L Chloride 110 H (96-108) mmol/L Carbon Dioxide 19 L (22-29) mmol/L Anion Gap 13 (12-20) BUN 13 (9-16) mg/dL Creatinine 0.82 (0.5-1.4) mg/dL Estim Creat Clear Calc 60.4 Estimated GFR > 60 Random Glucose 109 (60-115) mg/dL Calcium 9.9 (8.4-10.2) mg/dL Magnesium 2.0 (1.6-2.6) mg/dL Total Bilirubin 0.7 (0.0-1.0) mg/dL Direct Bilirubin 0.2 (0.0-0.5) mg/dL AST 20 (5-31) U/L ALT 29 (0-31) U/L Alkaline Phosphatase 71 (39-117) U/L Total Protein 7.3 (6.5-8.0) g/dL Albumin 4.6 (3.5-5.0) g/dL Lipase 15 (8-78) U/L COVID-19 (BRENDA) Negative (Negative) COVID-19 Clin Com See Note Independent Interpretation I performed an independent interpretation of an: EKG Radiology Impression Discussion of test interpretation with radiology: I have reviewed the radiologist's reading. External Record Review External record reviewed: Prior outpatient labs, Prior outpatient radiology, Primary care record and Outside ED record Prescription Management I considered prescription management with: Pain Medication, Antiviral and Antibiotic Discharge Plan Discharge Clinical Impression: Gastroenteritis, Abdominal pain Patient Disposition: Admitted As Inpatient
--- NOTE | 2022-11-26 12:00 | ECG_ITS ---
Test Reason : abdominal pain Blood Pressure : / mmHG Vent. Rate : 053 BPM Atrial Rate : 053 BPM P-R Int : 138 ms QRS Dur : 076 ms QT Int : 434 ms P-R-T Axes : 066 022 028 degrees QTc Int : 407 ms Sinus bradycardia Otherwise normal ECG When compared with ECG of 24-FEB-2021 15:34, Vent. rate has decreased BY 53 BPM Referred By: Angella Sawyer Electronically Signed By:TOM HERNANDEZ MD
[2022-11-26 12:21] VITALS: BP 144/68; PULSE 55; RESP 16; TEMP 36.7; O2SAT 100
--- NOTE | 2022-11-26 13:20 | PM.CNGS ---
History of Present Illness Consult details Consult date: 11/26/22 Narrative: 57F referred for abdminal pain. She is here in the ED because of a one-week history of vomitting, diarrhea and diffuse abdominal pain. She says she has not been able to eat uch the past week. Her diarrhea is nonbloody. She says she would have up to 20 BMs a day, which is always watery. She says she would vomit about 20 times a day as well. She says sheis being followed by GI for H pylori gastritis. She had an open appendectomy in [place] in 2001. Review of Systems Constitutional: Constitutional: Denies chills and Denies fever(s) Cardiovascular: Cardiovascular: Denies chest pain, Denies dyspnea and Denies dyspnea on exertion Respiratory: Respiratory: Denies cough, Denies dyspnea and Denies dyspnea on exertion Gastrointestinal: Gastrointestinal: Denies hematochezia, Reports diarrhea and Reports vomiting Genitourinary: Genitourinary: Denies hematuria Musculoskeletal: Musculoskeletal: Denies back pain and Denies limited range of motion Neurologic: Denies focal weakness and Denies convulsions Psychiatric: Psychiatric: Denies depression and Denies mood swings PMFSH Past Medical History Medical History Abdominal pain Anxiety Chronic diarrhea Depression Epigastric pain HTN (hypertension) Family History Family History Father Cancer Mother H/O: hysterectomy Daughter H/O: hysterectomy Paternal Grandfather Stomach cancer Surgical History Surgical History H/O tubal ligation History of appendectomy History of carpal tunnel release of both wrists Hx of colonoscopy Social History Social History Household Members: None Housing: Apartment Alcohol intake: former Patient Tobacco Use Status: Former Tobacco user service: No Current occupational status: unemployed and disabled Meds Allergies Allergy/AdvReac Type Severity Reaction Status Date / Time aspirin [ASA] Allergy Severe Anaphylaxis Verified 11/26/22 08:46 ibuprofen [IBUPROFEN] Allergy Severe ANAPHYLAXIS, Verified 11/26/22 08:46 throat swelling zolpidem [From AMBIEN] Allergy Intermediate RASH, HIVES Verified 11/26/22 08:46 Home Medications Medication Instructions Recorded Confirmed Last Taken Type atenolol 25 mg tablet 25 mg PO DAILY 12/23/20 11/26/22 11/26/22 History albuterol sulfate 90 mcg/actuation 2 puff inhalation Q4H PRN 02/24/21 11/26/22 11/25/22 History aerosol inhaler (ProAir HFA) Respiratory Distress mometasone-formoterol HFA 200 2 puff inhalation BID 02/24/21 11/26/22 11/25/22 History mcg-5 mcg/actuation aerosol inhaler (Dulera) omeprazole 20 mg capsule,delayed 20 mg PO DAILY@0630 02/24/21 11/26/22 11/25/22 History release bupropion HCl 150 mg 24 hr tablet, 150 mg PO QAM 07/30/22 11/26/22 11/25/22 History extended release cholecalciferol (vitamin D3) 25 25 mcg PO QAM 07/30/22 11/26/22 11/25/22 History mcg (1,000 unit) capsule (Vitamin D3) clonazepam 1 mg tablet 1 mg PO BID PRN Anxiety 07/30/22 11/26/22 11/25/22 History quetiapine 200 mg tablet 200 mg PO BEDTIME 07/30/22 11/26/22 11/25/22 History Physical Exam Vital Signs: Vital Signs: Last Vital Signs Temp 98.0 F 11/26/22 12:21 Pulse 55 11/26/22 12:21 Resp 16 11/26/22 12:21 BP 144/68 H 11/26/22 12:21 Pulse Ox 100 11/26/22 12:21 O2 Del Method 11/26/22 12:21 BMI result Body Mass Index 24.4 Const: General: comfortable and no acute distress Orientation/consciousness: patient oriented x3 Neck: Neck: Yes no lymphadenopathy Resp: Auscultation: clear to auscultation bilaterally Cardio: Rhythm: regular rhythm GI: Inspection: No distended Palpation (GI): Soft to palpation, not firm, Tenderness to palpation present (GI) (mild diffuse) and no guarding Neuro: General: patient oriented x3 Results Labs 11/26/22 09:40 11/26/22 09:40 Labs: Abnormal lab results 11/26/22 11/26/22 Range/Units 09:40 09:40 WBC 17.6 H (4.8-10.8) X10*3/uL Immature Gran % (Auto) 0.5 H (0.0-0.4) % Abs Immat Gran (auto) 0.08 H (0.00-0.03) X10*3/uL Absolute Neuts (auto) 12.5 H (2.0-8.3) x10*3/uL Chloride 110 H (96-108) mmol/L Carbon Dioxide 19 L (22-29) mmol/L Short CBC 11/26/22 Range/Units 09:40 WBC 17.6 H (4.8-10.8) X10*3/uL Hgb 15.2 (12.0-16.0) g/dl Hct 44.2 (37.0-47.0) % Plt Count 379 (160-400) X10*3/uL BMP 11/26/22 09:40 Sodium 138 Potassium 4.4 Chloride 110 H Carbon Dioxide 19 L BUN 13 Creatinine 0.82 Calcium 9.9 Liver Function 11/26/22 Range/Units 09:40 Total Bilirubin 0.7 (0.0-1.0) mg/dL Direct Bilirubin 0.2 (0.0-0.5) mg/dL AST 20 (5-31) U/L ALT 29 (0-31) U/L Alkaline Phosphatase 71 (39-117) U/L Albumin 4.6 (3.5-5.0) g/dL All other labs normal. Laboratory Results WBC 17.6 X10*3/uL (4.8-10.8) H 11/26/22 09:40 RBC 4.90 X10*6/uL (4.20-5.50) 11/26/22 09:40 Hgb 15.2 g/dl (12.0-16.0) 11/26/22 09:40 Hct 44.2 % (37.0-47.0) 11/26/22 09:40 MCV 90.2 fL (80.0-98.0) 11/26/22 09:40 MCH 31.0 pg (27.0-33.0) 11/26/22 09:40 MCHC 34.4 g/dl (31.0-35.0) 11/26/22 09:40 RDW 12.5 % (11.0-16.0) 11/26/22 09:40 Plt Count 379 X10*3/uL (160-400) 11/26/22 09:40 MPV 10.5 fL (9.4-12.3) 11/26/22 09:40 Immature Gran % (Auto) 0.5 % (0.0-0.4) H 11/26/22 09:40 Neut % (Auto) 70.9 % (45-73) 11/26/22 09:40 Lymph % (Auto) 22.2 % (20-40) 11/26/22 09:40 [place] % (Auto) 5.2 % (2-11) 11/26/22 09:40 Eos % (Auto) 0.9 % (0-4) 11/26/22 09:40 Baso % (Auto) 0.3 % (0-2) 11/26/22 09:40 Lymph # (Auto) 3.9 X10*3/uL (1.2-4.9) 11/26/22 09:40 [place] # (Auto) 0.9 X10*3/uL (0.1-1.2) 11/26/22 09:40 Eos # (Auto) 0.2 X10*3/uL (0.0-0.4) 11/26/22 09:40 Baso # (Auto) 0.1 X10*3/uL (0.0-0.2) 11/26/22 09:40 Abs Immat Gran (auto) 0.08 X10*3/uL (0.00-0.03) H 11/26/22 09:40 Absolute Neuts (auto) 12.5 x10*3/uL (2.0-8.3) H 11/26/22 09:40 Absolute Nucleated RBC 0.000 X10*3/uL (0.0-0.012) 11/26/22 09:40 Nucleated RBC % (auto) 0.0 /100WBC (0.0-0.2) 11/26/22 09:40 Sodium 138 mmol/L (135-145) 11/26/22 09:40 Potassium 4.4 mmol/L (3.3-5.1) 11/26/22 09:40 Chloride 110 mmol/L (96-108) H 11/26/22 09:40 Carbon Dioxide 19 mmol/L (22-29) L 11/26/22 09:40 Anion Gap 13 (12-20) 11/26/22 09:40 BUN 13 mg/dL (9-16) 11/26/22 09:40 Creatinine 0.82 mg/dL (0.5-1.4) 11/26/22 09:40 Estim Creat Clear Calc 60.4 11/26/22 09:40 Estimated GFR > 60 11/26/22 09:40 Random Glucose 109 mg/dL (60-115) 11/26/22 09:40 Calcium 9.9 mg/dL (8.4-10.2) 11/26/22 09:40 Magnesium 2.0 mg/dL (1.6-2.6) 11/26/22 09:40 Total Bilirubin 0.7 mg/dL (0.0-1.0) 11/26/22 09:40 Direct Bilirubin 0.2 mg/dL (0.0-0.5) 11/26/22 09:40 AST 20 U/L (5-31) 11/26/22 09:40 ALT 29 U/L (0-31) 11/26/22 09:40 Alkaline Phosphatase 71 U/L (39-117) 11/26/22 09:40 Total Protein 7.3 g/dL (6.5-8.0) 11/26/22 09:40 Albumin 4.6 g/dL (3.5-5.0) 11/26/22 09:40 Lipase 15 U/L (8-78) 11/26/22 09:40 COVID-19 (BRENDA) Negative (Negative) 11/26/22 11:00 COVID-19 Clin Com See Note 11/26/22 11:00 Impressions Abdomen/Pelvis CT 11/26/22 10:45 IMPRESSION: 1. No acute intra-abdominal process seen. 2. Mild constipation. Fluid-filled nonspecific distal ileal loops. Appendix is not visualized. 3. Small supraumbilical hernia containing fat. Fleischner guidelines were followed. Assessment and Plan (1) Abdominal pain: Status: Acute She describes having abdominal pain, severe diarrhea and vomitting for about 1 week now. I have reviewed her CT scan and this does not reveal any acute inflammatory changes nor obstruction in the abdomen. Her overall clinical picture suggests gastroenteritis. If she is admited to the hospital, I can follow along. She may need to be on IVF for rehydration. Her stools should be checked as well for C diff. Time Spent With Patient Time: Total time managing care of this patient today ____ minutes. Procedures Date of Service Date of Service: 12/24/22
[2022-11-26 13:40] VITALS: BP 121/67; PULSE 53; RESP 17; TEMP 36.6; O2SAT 100
[2022-11-26 14:16] VITALS: BP 139/63; PULSE 56; RESP 14; TEMP 36.6; O2SAT 100
--- NOTE | 2022-11-26 14:24 | PM.IMHP ---
History of Present Illness Date of Service: 11/26/22 Chief Complaint: Nausea,vomiting and abdominal pain. 57-year-old female with a past medical history of anxiety, chronic diarrhea, depression, HTN, H pylori followed by Dr. Quinonez she was seen by Dr. Quinonez in GI clinic in follow up for nausea, frequent vomitting and abdominal demetrio and non bloody diarrhea that has been ongoing for near a week now. Pain is worse with food or drink. Review of Systems Review of Systems: Gen: no fever Resp: no sob, no cough CV: no chest, no MIX, no leg edema GI: No n/v, no abd pain Neuro: No confusion Yes all other systems are reviewed and are negative [facility] Medical History Abdominal pain Anxiety Chronic diarrhea Depression Epigastric pain HTN (hypertension) Family History Father Cancer Mother H/O: hysterectomy Daughter H/O: hysterectomy Paternal Grandfather Stomach cancer Surgical History H/O tubal ligation History of appendectomy History of carpal tunnel release of both wrists Hx of colonoscopy Social History Household Members: None Housing: Apartment Alcohol intake: former Patient Tobacco Use Status: Former Tobacco user Smoked in Last 30 Days: No Use of substances other than those prescribed or required for medical reasons: No Advance Directives: No Advance Directives Information Provided: Yes Nutrition Risks: No Nutritional Risk Patient : No service: No Current occupational status: unemployed and disabled Meds Allergies Allergy/AdvReac Type Severity Reaction Status Date / Time aspirin [ASA] Allergy Severe Anaphylaxis Verified 11/26/22 08:46 ibuprofen [IBUPROFEN] Allergy Severe ANAPHYLAXIS, Verified 11/26/22 08:46 throat swelling zolpidem [From AMBIEN] Allergy Intermediate RASH, HIVES Verified 11/26/22 08:46 Active Medications: Current Medications Pharmacy Consult (Consult Rx Perform Med Rec) 1 each MISCELLANE ONCE STA Stop: 11/26/22 13:49 Home Medications Medication Instructions Recorded Confirmed Last Taken Type atenolol 25 mg tablet 25 mg PO DAILY 12/23/20 11/26/22 11/26/22 History albuterol sulfate 90 mcg/actuation 2 puff inhalation Q4H PRN 02/24/21 11/26/22 11/25/22 History aerosol inhaler (ProAir HFA) Respiratory Distress mometasone-formoterol HFA 200 2 puff inhalation BID 02/24/21 11/26/22 11/25/22 History mcg-5 mcg/actuation aerosol inhaler (Dulera) omeprazole 20 mg capsule,delayed 20 mg PO DAILY@0630 02/24/21 11/26/22 11/25/22 History release bupropion HCl 150 mg 24 hr tablet, 150 mg PO QAM 07/30/22 11/26/22 11/25/22 History extended release cholecalciferol (vitamin D3) 25 25 mcg PO QAM 07/30/22 11/26/22 11/25/22 History mcg (1,000 unit) capsule (Vitamin D3) clonazepam 1 mg tablet 1 mg PO BID PRN Anxiety 07/30/22 11/26/22 11/25/22 History quetiapine 200 mg tablet 200 mg PO BEDTIME 07/30/22 11/26/22 11/25/22 History Physical Exam Vital Signs and Narrative: Vital Signs: Last Vital Signs Temp 98 F 11/26/22 14:16 Pulse 56 11/26/22 14:16 Resp 14 11/26/22 14:16 BP 139/63 11/26/22 14:16 Pulse Ox 100 11/26/22 14:16 O2 Del Method 11/26/22 14:16 BMI result Body Mass Index 24.4 Const: Other: Constitutional: Alert, in no distress, overweight. Mental Status: Oriented to person, place and time. Eyes: Pupils are equal, round and reactive to light. Ear, Nose and Throat: Oropharynx clear, mucous membranes moist. Ears and nose without eformities. Trachea midline. Respiratory: Clear to auscultation. No wheezing, rales or rhonchi. Cardiovascular: S1 S2 regular. No murmurs, rubs or gallops. Gastrointestinal: Abdomen soft, non-tender, non-distended. Normal bowel sounds.? Neurologic: Cranial nerves II-XII grossly intact. No focal neurological deficits. Moves all extremities spontaneously.? Skin: No rashes or lesions.? Musculoskeletal: No cyanosis or clubbing. Psychiatric: Normal mood and affect? Results Labs 11/26/22 09:40 11/26/22 09:40 Labs: Laboratory Results - last 24 hr 11/26/22 11/26/22 11/26/22 09:40 09:40 11:00 MCV 90.2 MCH 31.0 MCHC 34.4 RDW 12.5 Plt Count 379 MPV 10.5 Immature Gran % (Auto) 0.5 H Neut % (Auto) 70.9 Lymph % (Auto) 22.2 [place] % (Auto) 5.2 Eos % (Auto) 0.9 Baso % (Auto) 0.3 Lymph # (Auto) 3.9 [place] # (Auto) 0.9 Eos # (Auto) 0.2 Baso # (Auto) 0.1 Abs Immat Gran (auto) 0.08 H Absolute Neuts (auto) 12.5 H Absolute Nucleated RBC 0.000 Nucleated RBC % (auto) 0.0 Anion Gap 13 Estim Creat Clear Calc 60.4 Estimated GFR > 60 Random Glucose 109 Calcium 9.9 Magnesium 2.0 Total Bilirubin 0.7 Direct Bilirubin 0.2 AST 20 ALT 29 Alkaline Phosphatase 71 Total Protein 7.3 Albumin 4.6 Lipase 15 COVID-19 (BRENDA) Negative COVID-19 Clin Com See Note Imaging Radiologist's Impressions: Impressions Abdomen/Pelvis CT 11/26/22 10:45 IMPRESSION: 1. No acute intra-abdominal process seen. 2. Mild constipation. Fluid-filled nonspecific distal ileal loops. Appendix is not visualized. 3. Small supraumbilical hernia containing fat. Fleischner guidelines were followed. Assessment and Plan (1) Gastroenteritis: Status: Acute (2) Abdominal pain: Status: Acute Plan 57-year-old female with a past medical history of anxiety, chronic diarrhea, depression, HTN, H pylori followed by Dr. Quinonez she was seen by Dr. Quinonez in GI clinic in follow up for nausea, frequent vomitting and abdominal demetrio and non bloody diarrhea that has been ongoing for near a week now. Pain is worse with food or drink. -Hydrate, antiemetic, GI panel and C dif pain medication and GI consultation if not improving Time Spent With Patient Time: Total time managing care of this patient today ____ minutes. Quality Stroke Does the patient have a stroke diagnosis?: No VTE Prior VTE?: No VTE Risk Level:: Medical - moderate - high VTE Device Contraindication: Treatment Not Indicated VTE Drug Contraindication: N/A - Med Ordered
[2022-11-26 14:27] LABS: Appearance Urine Clear; Color Urine Yellow; Glucose Urine UA Negative (Negative); Leukocyte Esterase Urine Trace (Negative); Nitrite Urine Negative (Negative); PH 5.5 (5.0-9.0); Specific Gravity - Urine 1.025 (1.005-1.025); UMIC TRIGGER UACC YES; Urine Blood Moderate (2+) (Negative); Urine Ketones Trace mg/dL (Negative); Urine Protein Negative (Neg-Trace)
[2022-11-26] MEDS: Butalb/Acetamin/Caff 50/325/40 TABLET 1 TAB PO (14:34)
[2022-11-26 14:37] LABS: Bacteria Urine None Seen (None Seen); Hyaline Casts Urine 0-2 /LPF (0-2); Squamous Epithelial Cell Urine 0-2 /HPF (0-2); WBC Urine 0-5 /HPF (0-5)
--- NOTE | 2022-11-26 15:19 | PHA.MEDREC ---
Pharmacy Consult ? Medication Reconciliation Pharmacy has completed the medication reconciliation.
[2022-11-26] MEDS: Metoclopramide HCl 10 MG/2 ML VIAL IVPUSH (15:26)
[2022-11-26] MEDS: 0.9 % Sodium Chloride Flush 3 ML SYRINGE IVFLUSH (16:42)
[2022-11-26] MEDS: Dextrose 5 % and 0.45 % NaCl 1,000 ML 100 ML IVCONT (16:42)
[2022-11-26] MEDS: Morphine Sulfate 4 MG/ML CARTRIDGE 2 MG IVPUSH ×2 (16:42→21:37)
[2022-11-26 19:52] VITALS: BP 133/67; PULSE 52; RESP 9; TEMP 36.6; O2SAT 99
[2022-11-26 20:08] LABS: CDiff Gene PCR NEGATIVE (Negative)
[2022-11-26] MEDS: QUEtiapine Fumarate 200 MG TABLET PO (21:37)
[2022-11-27] MEDS: Morphine Sulfate 4 MG/ML CARTRIDGE 2 MG IVPUSH ×2 (02:19→11:54)
[2022-11-27] MEDS: Melatonin 3 MG TABLET 6 MG PO (02:20)
[2022-11-27] MEDS: Dextrose 5 % and 0.45 % NaCl 1,000 ML 100 ML IVCONT ×2 (02:20→07:46)
[2022-11-27] MEDS: Omeprazole 20 MG CAPSULE.DR PO (06:29)
--- NOTE | 2022-11-27 07:24 | PC.NURSE ---
assumed care of patient, pt resting comfortably in bed, VSS, awaiting inpt bed
[2022-11-27] MEDS: atenoloL 25 MG TABLET PO (07:45)
[2022-11-27] MEDS: Cholecalciferol (Vitamin D3) 25 MCG TABLET PO (07:45)
[2022-11-27] MEDS: buPROPion HCl XL 150 MG TAB.ER.24H PO (07:46)
[2022-11-27 10:52] LABS: Campylobacter Not Detected (Not Detect.); Plesiomonas shigelloides Not Detected (Not Detect.); Salmonella Not Detected (Not Detect.); Vibrio Not Detected (Not Detect.); Vibrio Cholerae Not Detected (Not Detect.); Yersinia enterocolitica Not Detected (Not Detect.)
[2022-11-27 10:53] LABS: Cryptosporidium Not Detected (Not Detect.); E. coli EAEC Not Detected (Not Detect.); E. coli EPEC Not Detected (Not Detect.); E. coli ETEC Not Detected (Not Detect.); E. coli STEC Not Detected (Not Detect.); Shigella sp./EIEC Not Detected (Not Detect.)
[2022-11-27 10:54] LABS: Adenovirus F 40/41 Not Detected (Not Detect.); Astrovirus Not Detected (Not Detect.); Cyclospora cayetanensis Not Detected (Not Detect.); Entamoeba histolytica Not Detected (Not Detect.); Giardia lamblia Not Detected (Not Detect.); Norovirus GI/GII Not Detected (Not Detect.); Rotavirus A Not Detected (Not Detect.); Sapovirus Not Detected (Not Detect.)
--- NOTE | 2022-11-27 10:56 | MHC.CM.PN ---
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 Patient's primary language is Somali. She is able to understand and speak some Wolof but prefers to have an brush washer available. Patient lives alone, ambulates independently and had no services prior to coming to the hospital. PCP verified. Patient denies having a HCP. Information provided. Patient declines to complete on at this time. Patient received 3 Moderna vaccines. Obs notice explained and signed. Patient will arrange her own transportation when medically stable. Continue to monitor for d/c needs.
[2022-11-27] MEDS: ondansetron HCL 4 MG/2 ML VIAL IVPUSH (11:54)
[2022-11-27] MEDS: Acetaminophen 325 MG TABLET 650 MG PO (11:54)
--- NOTE | 2022-11-27 12:02 | P.DS_ITS ---
DS: Providers Provider Date of Service: 11/27/22 Date of admission: 11/26/22 16:00 Primary care physician: Paty Bowen MD DS: Diagnosis Discharge Diagnosis (1) Gastroenteritis: Status: Acute (2) Abdominal pain: Status: Acute DS: Summary Status at Discharge Cognitive/behavioral status at discharge: 57-year-old female with a past medical history of anxiety, chronic diarrhea, depression, HTN, H pylori followed by Dr. Quinonez she was seen by Dr. Quinonez in GI clinic in follow up for nausea, frequent vomitting and abdominal demetrio and non bloody diarrhea that has been ongoing for near a week now. Pain is worse with food or drink. Hospital course: Clinical presentation as most consistent with acute viral gastroenteritis, Cdif was negative, CT showed no acute process other than mild constipation. WBC was high but no evidence of bacterial infecton. She was treated symptomatically with hydration, pain medcaton and antiemertics and diet advance to regular now. She will follow up with Dr. Quinonez. She was seen by Dr. Ramos from surgery but no indication for procedure. GI panel and C dif were negaitive Time Spent with Patient Time attestation: Total time managing care of this patient today ____ minutes. Discharge coordination time: Greater than 30 minutes Quality: Safe Use of Opioids Does Pt have an Active Cancer Diagnosis on the Problem List?: No Quality: Stroke Does the patient have a stroke diagnosis?: No Physical Exam Vital Signs: Vital Signs: Last Vital Signs Temp 97.8 F 11/26/22 19:52 Pulse 52 11/26/22 19:52 Resp 9 L 11/26/22 19:52 BP 133/67 11/26/22 19:52 Pulse Ox 99 11/26/22 19:52 O2 Del Method 11/26/22 19:52 BMI result Body Mass Index 24.4 DS: Data Data Completed and Pending Labs on day of discharge: Laboratory Results - last 24 hr 11/26/22 11/26/22 11/26/22 09:40 14:18 16:35 Magnesium 2.0 Total Bilirubin 0.7 Direct Bilirubin 0.2 AST 20 ALT 29 Alkaline Phosphatase 71 Total Protein 7.3 Albumin 4.6 Lipase 15 Urine Color Yellow Urine Appearance Clear Urine pH 5.5 Ur Specific [place] 1.025 Urine Protein Negative Urine Glucose (UA) Negative Urine Ketones Trace Urine Blood Moderate (2+) H Urine Nitrite Negative Ur Leukocyte Esterase Trace H Urine RBC 3-5 H Urine WBC 0-5 Ur Squamous Epith Cells 0-2 Urine Bacteria None Seen Hyaline Casts 0-2 Stl C. cayetanensis PCR Not Detected Stool Rotavirus A PCR Not Detected Stl Adenov F 40 PCR Not Detected Stool Astrovirus (PCR) Not Detected Stool Campylobacter PCR Not Detected Stool Cryptosporidium PCR Not Detected Stl Sh Tox Pr E STEC PCR Not Detected Stool E coli O157 PCR Not applicable Stl Enterotoxigenic E PCR Not Detected Stool EPEC (PCR) Not Detected Stool EAEC (PCR) Not Detected Stl E. histolytica PCR Not Detected Stool Giardia Lamblia PCR Not Detected Stl P. shigelloides PCR Not Detected Stool Salmonella PCR Not Detected Stool Sapovirus (PCR) Not Detected Stl Shigella/EIEC PCR Not Detected St Y.enterocolitica PCR Not Detected Stool Vibrio (PCR) Not Detected Stl Vibrio cholerae PCR Not Detected Stl Norovirus GI/GII PCR Not Detected C. difficile Tox B Gene 11/26/22 16:35 Magnesium Total Bilirubin Direct Bilirubin AST ALT Alkaline Phosphatase Total Protein Albumin Lipase Urine Color Urine Appearance Urine pH Ur Specific [place] Urine Protein Urine Glucose (UA) Urine Ketones Urine Blood Urine Nitrite Ur Leukocyte Esterase Urine RBC Urine WBC Ur Squamous Epith Cells Urine Bacteria Hyaline Casts Stl C. cayetanensis PCR Stool Rotavirus A PCR Stl Adenov F PCR Stool Astrovirus (PCR) Stool Campylobacter PCR Stool Cryptosporidium PCR Stl Sh Tox Pr E STEC PCR Stool E coli O157 PCR Stl Enterotoxigenic E PCR Stool EPEC (PCR) Stool EAEC (PCR) Stl E. histolytica PCR Stool Giardia Lamblia PCR Stl P. shigelloides PCR Stool Salmonella PCR Stool Sapovirus (PCR) Stl Shigella/EIEC PCR St Y.enterocolitica PCR Stool Vibrio (PCR) Stl Vibrio cholerae PCR Stl Norovirus GI/GII PCR C. difficile Tox B Gene NEGATIVE Discharge Plan Discharge Anticipated Discharge Date/Time: 11/27/22 12:00 Patient Disposition: Home, Self-Care Discharge Diagnosis: Gastroenteritis Referrals: Paty Bowen MD [Primary Care Provider] - 1 Week Discharge Medications: Continued atenolol 25 mg tablet 25 mg PO DAILY Dulera 200-5 mcg/actuation Hfa Aerosol Inhaler 2 puff INHALATION BID omeprazole 20 mg Capsule,Delayed Release(Dr/Ec) 20 mg PO DAILY@0630 albuterol sulfate [ProAir HFA] 90 mcg/actuation Hfa Aerosol Inhaler 2 puff INHALATION Q4H PRN (Reason: Respiratory Distress) quetiapine 200 mg tablet 200 mg PO BEDTIME bupropion HCl 150 mg tablet extended release 24 hr 150 mg PO QAM cholecalciferol (vitamin D3) [Vitamin D3] 25 mcg (1,000 unit) capsule 25 mcg PO QAM clonazepam 1 mg tablet 1 mg PO BID PRN (Reason: Anxiety) Discharge Orders: Discharge Order (Routine); Ordered 11/27/22 Ordered By: Semaj Montes De Oca Diet: Advance to usual diet Activity on Discharge: As tolerated Stand Alone Forms: Patient Portal Discharge page Care Plan Goals: recovery from abdominal pain, vomiting, diarrhea Health Concerns: gastroenteritis Plan of Treatment: symptomatic treatment with nausea medication, pain medication and to hydrate ranjit well Assessment: see abdi Discharge Date/Time: 11/27/22 12:46
== END 2022-11-27 12:46 | disposition home or self-care (01) ==
LOC: HO.ED 13:58 → HO.EDOVER 16:36
PROVIDERS: Physician Assistant; Admitting Provider Internal Medicine; Emergency Provider Emergency Medicine; PCP Family Medicine; Visit Provider Internal Medicine
DX: K52.9 Noninfective gastroenteritis and colitis, unspecified (principal); I10 Essential (primary) hypertension; R11.2 Nausea with vomiting, unspecified; Z20.822 Contact with and (suspected) exposure to COVID-19
CPT/HCPCS: 36415; 74177; 80048; 80076; 81001; 83690; 83735; 85025; 87493; 87507; 87635; 93005; 96361; 96365; 96366; 96375; 96376; 99221; 99285; J2270; J2405; J2765; Q9967

== ENCOUNTER 2023-03-26 17:19 | Outpatient (REF) | payer MEDICAID, SELFPAY ==
--- NOTE | ~2023-03-26 | XR_ITS ---
EXAMINATION: XR CHEST CLINICAL INFORMATION: Shortness of breath COMPARISON: 03/02/2021 TECHNIQUE: 2 views of the chest were obtained. FINDINGS: No significant abnormality is noted involving the heart, lungs, mediastinum, bony thorax or soft tissues. XR/XR chest 2V IMPRESSION: Unremarkable examination, without interval change.
== END 2023-03-26 17:20 | disposition home or self-care (01) ==
LOC: HO.XRAY 17:19
PROVIDERS: Absent Provider Family Medicine; PCP Family Medicine; Visit Provider Registered Nurse
DX: R06.02 Shortness of breath (principal); R68.83 Chills (without fever)
CPT/HCPCS: 71046

== ENCOUNTER 2023-10-07 13:50 | Outpatient (AMB) | payer MEDICAID, SELFPAY ==
--- NOTE | 2023-10-07 13:51 | MHC.OFFVIS ---
Intake Vital Signs 10/07/23 13:55 Height 5 ft Weight 145 lb BMI 28.3 Intake Visit Reasons: umbilical hernia Intake Note: This patient was referred by for a umbilical hernia assessment. Patient c/o; bulge, reports increased in size, reports severe pain, reports feeling pressure sensation, reports watery stools. abd/pelvis CT: 11/26/22 Network Development Coordinator Required: No Accompanied by: Self / Same As Patient Allergies aspirin [ASA] Allergy (Severe, Verified 10/07/23 13:56) Anaphylaxis ibuprofen [IBUPROFEN] Allergy (Severe, Verified 10/07/23 13:56) ANAPHYLAXIS, throat swelling zolpidem [From AMBIEN] Allergy (Intermediate, Verified 10/07/23 13:56) RASH, HIVES Medication List - Last Reconciled 10/07/23 by Samir Ramos MD albuterol sulfate 90 mcg/actuation (ProAir HFA) 2 puffs inhalation Q4H PRN atenolol 25 mg PO DAILY bupropion HCl 150 mg PO QAM cholecalciferol (vitamin D3) (Vitamin D3) 25 mcg PO QAM clonazepam 1 mg PO BID PRN menthol-zinc oxide 0.44-20.6 % (Calmoseptine) 1 appl topical QID PRN mometasone-formoterol 200-5 mcg/actuation (Dulera) 2 puffs inhalation BID omeprazole 20 mg PO DAILY@0630 quetiapine 200 mg PO BEDTIME HPI umbilical hernia HPI Details [age] year old female referred for an umbilical hernia. She says she has noticed this lump the area just above her umbilicus for several years now. She says that over the years, this has been increasing in size. She describes worsening pain and discomfort. She says she now wants this fixed She says she is otherwise healthy. She admits to smoking marijuana occasionally. She has a history of asthma but she says this is well controlled. [facility] Medical History (Updated 10/07/23 @ 14:10 by Samir Ramos MD) Supraumbilical hernia Abdominal pain Anxiety Depression HTN (hypertension) Epigastric pain Chronic diarrhea Surgical History Hx of colonoscopy History of carpal tunnel release of both wrists History of appendectomy H/O tubal ligation Family History Father Cancer Mother H/O: hysterectomy Daughter H/O: hysterectomy Paternal Grandfather Stomach cancer Social History Household Members: None Housing: Apartment Alcohol intake: former Patient Tobacco Use Status: Former Tobacco user service: No Current occupational status: unemployed and disabled Review of Systems Const Denies chills and Denies fever(s) Card Denies chest pain, Denies dyspnea and Denies dyspnea on exertion Resp Denies cough, Denies dyspnea and Denies dyspnea on exertion GI Denies hematochezia and Denies change in bowel habits Denies hematuria Musc Denies back pain and Denies limited range of motion Neuro Denies focal weakness and Denies convulsions Psych Denies depression and Denies mood swings Physical Exam Vital Signs: BMI result Body Mass Index 28.3 Const General: comfortable and no acute distress Orientation/consciousness: patient oriented x3 Neck Neck: Yes no lymphadenopathy Resp Auscultation: clear to auscultation bilaterally Cardio Rhythm: regular rhythm GI Other: Palpable supraumbilical hernia, defect about 2.5 cm, hernia reducible Palpation (GI): Soft to palpation, nontender and no guarding Neuro General: patient oriented x3 Assessment & Plan Assessment & Plan (1) Supraumbilical hernia: Code(s): K43.9 - Ventral hernia without obstruction or gangrene Plan She has what appears to be a supraumbilical hernia which is reducible. The defect is about 2.5 cm. I explained to her the technique of repair of this supra umbilical hernia with possible mesh placement. I reviewed the risks including but not limited to bleeding, infections, bowel injury, recurrence, postop pain, as well as the benefits and alternatives. She says she understands and wants to proceed. Coding Level of Care Code New Pt Level 3 (51213) Diagnoses Supraumbilical hernia K43.9
[2023-10-07 13:55] VITALS: BMI 28.3
== END 2023-10-07 14:07 | disposition home or self-care (01) ==
PROVIDERS: PCP Family Medicine; Referring Provider Family Medicine; Visit Provider Surgery
DX: K43.9 Ventral hernia without obstruction or gangrene (principal)
CPT/HCPCS: 99214

== ENCOUNTER → 2023-10-07 13:50 | Outpatient (BNVA) | payer MEDICAID, SELFPAY | PROVIDERS: PCP Family Medicine; Referring Provider Family Medicine; Visit Provider Surgery | DX: K43.9 Ventral hernia without obstruction or gangrene (principal) | CPT/HCPCS: 99212 ==

== ENCOUNTER 2023-11-05 08:21 | Day surgery (SDC) | payer MEDICAID, SELFPAY ==
[2023-11-01 09:45] VITALS: BMI 28.3
--- NOTE | 2023-11-04 09:00 | HO.ANESPROP2 ---
Documented by User: Jaja Alvarado NP 11/04/23 09:00 HPI - Anesthesia Eval Consult details Narrative: 58yo F for Hernia Supraumbilical Reducible w/ possible mesh PMFSH Active Problems Active Problems: All Active Problems (Updated 11/01/23 @ 09:44 by Asha Brice, RN) Urine incontinence (Acute) Abnormal weight loss (Acute) UTI (urinary tract infection) (Acute) Pneumonia (Acute) Tubular adenoma (Acute) H. pylori infection (Acute) Nausea and vomiting (Acute) Supraumbilical hernia (Acute) Depression (Acute) HTN (hypertension) (Acute) Epigastric pain (Acute) Chronic diarrhea (Acute) Past Medical History Medical History Anemia Asthma Supraumbilical hernia Abdominal pain Anxiety Depression HTN (hypertension) Epigastric pain Chronic diarrhea Family History Family History Father Cancer Mother H/O: hysterectomy Daughter H/O: hysterectomy Paternal Grandfather Stomach cancer Surgical History Surgical History History of esophagogastroduodenoscopy (EGD) Hx of colonoscopy History of carpal tunnel release of both wrists History of appendectomy H/O tubal ligation Social History Social History Household Members: None Housing: Apartment Alcohol intake: former Patient Tobacco Use Status: Former Tobacco user Are you DNR?: No Advance Directives: No Advance Directives Information Provided: Yes Recently lost weight without trying: No Nutrition Risks: No Nutritional Risk service: No Current occupational status: unemployed and disabled Meds Allergies Allergy/AdvReac Type Severity Reaction Status Date / Time aspirin [ASA] Allergy Severe Anaphylaxis Verified 10/07/23 13:56 ibuprofen [IBUPROFEN] Allergy Severe ANAPHYLAXIS, Verified 10/07/23 13:56 throat swelling zolpidem [From AMBIEN] Allergy Intermediate RASH, HIVES Verified 10/07/23 13:56 Home Medications Medication Instructions Recorded Confirmed Last Taken Type atenolol 25 mg tablet 25 mg PO DAILY 12/23/20 11/01/23 11/05/23 History albuterol sulfate 90 mcg/actuation 2 puff inhalation Q4H PRN 02/24/21 11/01/23 11/01/23 History aerosol inhaler (ProAir HFA) Respiratory Distress mometasone-formoterol HFA 200 2 puff inhalation BID 02/24/21 11/01/23 11/01/23 History mcg-5 mcg/actuation aerosol inhaler (Dulera) omeprazole 20 mg capsule,delayed 20 mg PO DAILY@0630 02/24/21 11/01/23 11/05/23 History release bupropion HCl 150 mg 24 hr tablet, 150 mg PO QAM 07/30/22 11/01/23 11/03/23 History extended release cholecalciferol (vitamin D3) 25 25 mcg PO QAM 07/30/22 11/01/23 11/03/23 History mcg (1,000 unit) capsule (Vitamin D3) clonazepam 1 mg tablet 1 mg PO BID PRN Anxiety 07/30/22 11/01/23 11/05/23 History quetiapine 200 mg tablet 200 mg PO BEDTIME 07/30/22 11/01/23 11/03/23 History Exam Height,Weight and Vital Signs: Height 5 ft Weight 65.771 kg Assessment and Plan Assessment Anesthesia Assessment: Chart Reviewed Documented by User: Karla Handley MD 11/05/23 11:14 [facility] Active Problems Active Problems: All Active Problems (Updated 11/05/23 @ 11:04 by Karla Handley MD) Urine incontinence (Acute) Abnormal weight loss (Acute) H/o Pneumonia 2 yrs ago Tubular adenoma (Acute) H. pylori infection (Acute) Supraumbilical hernia (Acute) Depression (Acute) HTN (hypertension) (Acute) ? MYRANDA- awaiting appointment Past Medical History Medical History Anemia Asthma Supraumbilical hernia Abdominal pain Anxiety Depression HTN (hypertension) Epigastric pain Chronic diarrhea Family History Family History Father Cancer Mother H/O: hysterectomy Daughter H/O: hysterectomy Paternal Grandfather Stomach cancer Family history of problems with anesthesia: No Surgical History Surgical History History of esophagogastroduodenoscopy (EGD) Hx of colonoscopy History of carpal tunnel release of both wrists History of appendectomy H/O tubal ligation History of Problems with Anesthesia: No Social History Social History Household Members: None Housing: Apartment Alcohol intake: former Patient Tobacco Use Status: Former Tobacco user Are you DNR?: No Advance Directives: No Advance Directives Information Provided: Yes Recently lost weight without trying: No Nutrition Risks: No Nutritional Risk service: No Current occupational status: unemployed and disabled Meds Allergies Allergy/AdvReac Type Severity Reaction Status Date / Time aspirin [ASA] Allergy Severe Anaphylaxis Verified 10/07/23 13:56 ibuprofen [IBUPROFEN] Allergy Severe ANAPHYLAXIS, Verified 10/07/23 13:56 throat swelling zolpidem [From AMBIEN] Allergy Intermediate RASH, HIVES Verified 10/07/23 13:56 Home Medications Medication Instructions Recorded Confirmed Last Taken Type atenolol 25 mg tablet 25 mg PO DAILY 12/23/20 11/01/23 11/05/23 History albuterol sulfate 90 mcg/actuation 2 puff inhalation Q4H PRN 02/24/21 11/01/23 11/01/23 History aerosol inhaler (ProAir HFA) Respiratory Distress mometasone-formoterol HFA 200 2 puff inhalation BID 02/24/21 11/01/23 11/01/23 History mcg-5 mcg/actuation aerosol inhaler (Dulera) omeprazole 20 mg capsule,delayed 20 mg PO DAILY@0630 02/24/21 11/01/23 11/05/23 History release bupropion HCl 150 mg 24 hr tablet, 150 mg PO QAM 07/30/22 11/01/23 11/03/23 History extended release cholecalciferol (vitamin D3) 25 25 mcg PO QAM 07/30/22 11/01/23 11/03/23 History mcg (1,000 unit) capsule (Vitamin D3) clonazepam 1 mg tablet 1 mg PO BID PRN Anxiety 07/30/22 11/01/23 11/05/23 History quetiapine 200 mg tablet 200 mg PO BEDTIME 07/30/22 11/01/23 11/03/23 History Assessment and Plan Final Anesthetic Review Family History of Problems with Anesthesia: No History of Problems with Anesthesia: No
[2023-11-05] VITALS (7 sets, daily range): BP systolic 124–150; BP diastolic 52–82; PULSE 60–75; RESP 14–18; TEMP 36.1–36.3; O2SAT 92–98; BMI 27.7
[2023-11-05] MEDS: Lactated Ringers 1,000 ML 100 ML IVCONT (09:31)
--- NOTE | 2023-11-05 11:09 | MHC.SHP ---
Pre-Procedural Eval Section A - 24 Hr Update-Section A only Date of Service: 11/05/23 Section B - Complete if H&P > 30 days Chief Complaint: Ventral hernia without obstruction or gangrene Details of Present Illness: has epigastric mass, reducible Relevant Family History (Specify if Yes): No Relevant Social History: None Present Medications: see Short Stay Collaborative assessment Medical History: Significant History (HTN, depression) History of Previous Operations: Relevant previous surgery/procedure and date(s) Allergies: Allergies Allergy/AdvReac Type Severity Reaction Status Date / Time aspirin [ASA] Allergy Severe Anaphylaxis Verified 10/07/23 13:56 ibuprofen [IBUPROFEN] Allergy Severe ANAPHYLAXIS, Verified 10/07/23 13:56 throat swelling zolpidem [From AMBIEN] Allergy Intermediate RASH, HIVES Verified 10/07/23 13:56 Review of Systems Sugical H&P ROS: Negative: Constitution, Cardiovascular, Respiratory, Neurological, Psychiatric, Hem-Onc, Allergic/Immunologic, Gastrointestinal, Genitourinary, Musculoskeletal, Integumentary, Endocrine and Eyes/Ears/Nose/Throat Exam Surgical H&P Exam: Normal: HEENT, Normal: Heart, Normal: Lungs, Normal: Extremities, Normal: Skin and Normal: Neurological and Significant Findings: Abdomen (mass on Valsalva, epig area) Plan Diagnosis/Plan: Unchanged I have reviewed the history and physical and performed a pertinent physical examination on my patient. No changes have occurred unless specified. Time Spent With Patient Time: Total time managing care of this patient today ____ minutes.
--- NOTE | 2023-11-05 11:48 | W.PM.OPN ---
Operative Note Operative Note Date of Service: 11/05/23 Narrative: Preop diagnosis: Supraumbilical hernia Postop diagnosis: The same Procedure: Repair of supraumbilical hernia with Ventralex mesh Surgeon: Samir Ramos MD assistant art director: FLORENCIA Hodge The patient is a 58-year-old female with note of a palpable hernia on the supra umbilical area just to the epigastric region. She wanted to proceed with repair. She understood the technique of repair with mesh. She was aware of the risks, benefits, and alternatives. She was brought to the operating room. She was placed supine under general anesthesia via laryngeal mask airway. The abdomen was prepped and draped in the usual sterile fashion. A surgical time-out was done. The patient received cefazolin 2 g IV preoperatively I infiltrated the planned line of incision with lidocaine 1%. I made an incision on the skin overlying the hernia using blade 15. This was carried down with electrocautery through the full-thickness of the skin and subcutaneous fat until was able to visualize hernia contents. I sharply dissected the hernia contents which consisted of omentum down to the fascial edge. By doing so was able to reduce the hernia. The fascial defect was defined carefully. This measured about 2. 5 cm in diameter. There were no bowel loops surrounding the fascial edge. The fascial edges apposed to easily without tension. I used a small-sized Ventralex mesh. This was flattened under the fascial defect. I secured the Prolene straps of the mesh to the fascial edge with Prolene 3-0 sutures. I trimmed the Prolene straps flush on the fascial level. I closed the fascial defect with a figure-eight Maxon 1 stitch, incorporating the Prolene straps with these sutures The subcutaneous layer was reapposed with Polysorb 3-0 interrupted sutures. Skin closure was achieved with Polysorb 4-0 subcuticular running sutures. The area was infiltrated with Marcaine 0.5% for postop analgesia. The procedure was then completed The patient tolerated procedure well. There were no immediate complications. Initial and final counts of sponges and instruments were correct. I made blood loss was about 10 cc. The patient was extubated without difficulty and transferred to the recovery room with stable vital signs.
[2023-11-05] MEDS: oxyCODONE HCl Immed Release 5 MG TABLET PO (12:20)
[2023-11-05] MEDS: Ondansetron ODT 4 MG TAB.RAPDIS TRANSLINGU (12:55)
== END 2023-11-05 13:26 | disposition home or self-care (01) ==
PROVIDERS: PCP Family Medicine; Visit Provider Surgery
PROC: (CPT 49591; principal; 2023-11-05 10:20)
DX: K43.9 Ventral hernia without obstruction or gangrene (principal); I10 Essential (primary) hypertension; K59.09 Other constipation; F32.A Depression, unspecified; F41.9 Anxiety disorder, unspecified; Z88.8 Allergy status to other drugs, medicaments and biological substances; Z98.890 Other specified postprocedural states; Z87.891 Personal history of nicotine dependence
CPT/HCPCS: 49591; C1781; J0690; J2704; J2795; J3010

== ENCOUNTER → 2023-11-05 08:21 | Outpatient (BNV) | payer MEDICAID, SELFPAY | PROVIDERS: PCP Family Medicine; Visit Provider Surgery | DX: K43.9 Ventral hernia without obstruction or gangrene (principal) | CPT/HCPCS: 49591 ==

== ENCOUNTER 2023-11-20 09:58 | Outpatient (AMB) | payer MEDICAID, SELFPAY ==
--- NOTE | 2023-11-20 10:00 | MHC.OFFVIS ---
Intake Vital Signs 11/20/23 10:07 Weight 140 lb BP 161/68 H Blood Pressure Location Rt brachial Position Sitting Pulse 69 Intake Visit Reasons: S/P supraumbilical hernia w/poss mesh Intake Note: This patient presents for a posy-op assessment status post supraumbiical hernia repair. Patient c/o; reports no complaints at this time. Handbell Choir Director Required: No Accompanied by: Self / Same As Patient Allergies aspirin [ASA] Allergy (Severe, Verified 11/20/23 11:56) Anaphylaxis ibuprofen [IBUPROFEN] Allergy (Severe, Verified 11/20/23 11:56) ANAPHYLAXIS, throat swelling zolpidem [From AMBIEN] Allergy (Intermediate, Verified 11/20/23 11:56) RASH, HIVES HPI S/P supraumbilical hernia w/poss mesh HPI Details She underwent repair of a supraumbilical hernia with mesh placement last 11/05/2023. She tolerated procedure well. She currently denies significant complaints. [facility] Medical History Anemia Asthma Supraumbilical hernia Abdominal pain Anxiety Depression HTN (hypertension) Epigastric pain Chronic diarrhea Surgical History History of esophagogastroduodenoscopy (EGD) Hx of colonoscopy History of carpal tunnel release of both wrists History of appendectomy H/O tubal ligation Family History Father Cancer Mother H/O: hysterectomy Daughter H/O: hysterectomy Paternal Grandfather Stomach cancer Social History Household Members: None Housing: Apartment Alcohol intake: former Comment: counts correct Patient Tobacco Use Status: Former Tobacco user service: No Current occupational status: unemployed and disabled Review of Systems Const Denies chills and Denies fever(s) Card Denies chest pain, Denies dyspnea and Denies dyspnea on exertion Resp Denies cough, Denies dyspnea and Denies dyspnea on exertion GI Denies hematochezia and Denies change in bowel habits Denies hematuria Musc Denies back pain and Denies limited range of motion Neuro Denies focal weakness and Denies convulsions Psych Denies depression and Denies mood swings Physical Exam Vital Signs: Last Vital Signs Pulse 69 11/20/23 10:07 BP 161/68 H 11/20/23 10:07 Const General: comfortable and no acute distress Resp Effort & Inspection: normal respiratory effort GI Other: Hernia repair site is well healed, no evidence of infection or recurrence Palpation (GI): Soft to palpation, not firm and no guarding Assessment & Plan Assessment & Plan (1) Supraumbilical hernia: Code(s): K43.9 - Ventral hernia without obstruction or gangrene Plan: Status post repair with mesh. She is doing very well postoperatively. The repair site is intact. The incision is well healed. I advised her to avoid lifting anything more than 20 lb for at least 2 more weeks. She can follow up on a p.r.n. basis. Coding Level of Care Code Global (26936) Diagnoses Supraumbilical hernia K43.9
[2023-11-20 10:07] VITALS: BP 161/68; PULSE 69
== END 2023-11-20 10:09 | disposition home or self-care (01) ==
PROVIDERS: PCP Family Medicine; Visit Provider Surgery
DX: K43.9 Ventral hernia without obstruction or gangrene (principal)
CPT/HCPCS: 99212

== ENCOUNTER → 2023-11-20 09:58 | Outpatient (BNVA) | payer MEDICAID, SELFPAY | PROVIDERS: PCP Family Medicine; Visit Provider Surgery | DX: Z09 Encounter for follow-up examination after completed treatment for conditions other than malignant neoplasm (principal); Z87.19 Personal history of other diseases of the digestive system | CPT/HCPCS: 99212 ==

== ENCOUNTER 2023-11-20 11:53 | Emergency (ER) | payer MEDICAID, SELFPAY ==
--- NOTE | ~2023-11-20 | XR_ITS ---
EXAMINATION: XR CHEST CLINICAL INFORMATION: Syncope versus seizure COMPARISON: March 26, 2023 TECHNIQUE: Frontal view of the chest was obtained. FINDINGS: No significant abnormality is noted involving the heart, lungs, mediastinum, bony thorax or soft tissues. XR/XR chest 1V IMPRESSION: No acute disease.
--- NOTE | ~2023-11-20 | CT_ITS ---
EXAMINATION: CT HEAD WITHOUT CONTRAST CLINICAL INFORMATION: Syncope versus seizure. COMPARISON: Head CT from 08/04/2018. TECHNIQUE: Contiguous axial imaging was performed from the skullbase to vertex without intravenous administration of contrast. This CT examination was performed using dose optimization techniques as appropriate, variously including the following: *Automated exposure control *Adjustment of mA and/or kV according to patient size (this includes techniques or standardized protocols for targeted exams where dose is matched to indication/reason for exam; i.e. extremities or head) *Use of iterative reconstruction technique DLP: 553 mGy-cm. FINDINGS: There is no evidence of acute intracranial hemorrhage or territorial infarction. No abnormal mass effect or midline shift is seen. Davis to white matter differentiation is well preserved. No extra-axial fluid collections are identified. The ventricles are normal in size. There is no abnormal attenuation within the brain parenchyma. The osseous structures and soft tissues are normal. The mastoid air cells and visualized portions of the paranasal sinuses are fairly well aerated. CT/CT head/brain wo IV con IMPRESSION: No acute intracranial pathology.
[2023-11-20 11:56] VITALS: BP 181/73; PULSE 63; RESP 17; TEMP 36.6; O2SAT 100; BMI 27.6
--- NOTE | 2023-11-20 11:56 | ED_ITS ---
HPI - Syncope General Chief Complaint: Syncope Stated Complaint: Syncope sent by [facility] Related Data Home Medications ?Medication ?Instructions ?Recorded ?Confirmed atenolol 25 mg tablet 25 mg PO DAILY 12/23/20 11/01/23 albuterol sulfate 90 mcg/actuation 2 puff inhalation Q4H PRN 02/24/21 11/01/23 aerosol inhaler (ProAir HFA) Respiratory Distress mometasone-formoterol HFA 200 2 puff inhalation BID 02/24/21 11/01/23 mcg-5 mcg/actuation aerosol inhaler (Dulera) omeprazole 20 mg capsule,delayed 20 mg PO DAILY@0630 02/24/21 11/01/23 release bupropion HCl 150 mg 24 hr tablet, 150 mg PO QAM 07/30/22 11/01/23 extended release cholecalciferol (vitamin D3) 25 25 mcg PO QAM 07/30/22 11/01/23 mcg (1,000 unit) capsule (Vitamin D3) clonazepam 1 mg tablet 1 mg PO BID PRN Anxiety 07/30/22 11/01/23 quetiapine 200 mg tablet 200 mg PO BEDTIME 07/30/22 11/01/23 Previous Rx's ?Medication ?Instructions ?Recorded menthol 0.44 %-zinc oxide 20.6 % 1 appl topical QID PRN wound 01/22/23 topical ointment (Calmoseptine) healing #113 grams oxycodone-acetaminophen 5 mg-325 1 tab PO Q4-6H PRN pain #30 tabs 11/05/23 mg tablet (Percocet) Allergies Allergy/AdvReac Type Severity Reaction Status Date / Time aspirin [ASA] Allergy Severe Anaphylaxis Verified 11/20/23 11:56 ibuprofen [IBUPROFEN] Allergy Severe ANAPHYLAXIS, Verified 11/20/23 11:56 throat swelling zolpidem [From AMBIEN] Allergy Intermediate RASH, HIVES Verified 11/20/23 11:56 [facility] Past Medical History Medical History Anemia Asthma Supraumbilical hernia Abdominal pain Anxiety Depression HTN (hypertension) Epigastric pain Chronic diarrhea Surgical History History of esophagogastroduodenoscopy (EGD) Hx of colonoscopy History of carpal tunnel release of both wrists History of appendectomy H/O tubal ligation Family History Family History Father Cancer Mother H/O: hysterectomy Daughter H/O: hysterectomy Paternal Grandfather Stomach cancer Social History Social History Household Members: None Housing: Apartment Alcohol intake: former Comment: counts correct Patient Tobacco Use Status: Former Tobacco user service: No Current occupational status: unemployed and disabled Physical Exam 2 Vital Signs: Vital Signs: Last Vital Signs Temp 97.8 F 11/20/23 11:56 Pulse 63 11/20/23 11:56 Resp 17 11/20/23 11:56 BP 181/73 H 11/20/23 11:56 Pulse Ox 100 11/20/23 11:56 O2 Del Method Room Air 11/20/23 11:56 BMI result Body Mass Index 27.6 Course Course Course Narrative: This is a Rapid Medical Exam performed in triage by Angella Sawyer PA-C: 58 year- old F w/PMHx seizures (noncompliant on meds x years) presenting to the ED c/o dizziness with syncopal episodes & associated w/incontinence during 1st episode x2 days. Also reports OLIVER & CP. Full HPI, ROS and PE to be performed by primary ED provider. Medical Decision Making Lab Data 11/20/23 12:16 11/20/23 12:16 Labs: Lab Results 11/20/23 Range/Units 12:16 WBC 11.9 H (4.8-10.8) X10*3/uL RBC 5.15 (4.20-5.50) X10*6/uL Hgb 15.8 (12.0-16.0) g/dl Hct 46.4 (37.0-47.0) % MCV 90.1 (80.0-98.0) fL MCH 30.7 (27.0-33.0) pg MCHC 34.1 (31.0-35.0) g/dl RDW 12.5 (11.0-16.0) % Plt Count 338 (160-400) X10*3/uL MPV 10.6 (9.4-12.3) fL Immature Gran % (Auto) 0.4 (0.0-0.4) % Neut % (Auto) 65.5 (45-73) % Lymph % (Auto) 25.9 (20-40) % Noble % (Auto) 5.1 (2-11) % Eos % (Auto) 2.5 (0-4) % Baso % (Auto) 0.6 (0-2) % Lymph # (Auto) 3.1 (1.2-4.9) X10*3/uL Noble # (Auto) 0.6 (0.1-1.2) X10*3/uL Eos # (Auto) 0.3 (0.0-0.4) X10*3/uL Baso # (Auto) 0.1 (0.0-0.2) X10*3/uL Abs Immat Gran (auto) 0.05 H (0.00-0.03) X10*3/uL Absolute Neuts (auto) 7.8 (2.0-8.3) x10*3/uL Absolute Nucleated RBC 0.000 (0.0-0.012) X10*3/uL Nucleated RBC % (auto) 0.0 (0.0-0.2) /100WBC PT 12.7 (11.1-13.3) SEC INR 1.0 (0.9-1.1) Sodium 141 (135-145) mmol/L Potassium 4.1 (3.3-5.1) mmol/L Chloride 105 (96-108) mmol/L Carbon Dioxide 26 (22-29) mmol/L Anion Gap 14 (12-20) BUN 10 (9-16) mg/dL Creatinine 0.84 (0.5-1.4) mg/dL Estim Creat Clear Calc 61.7 Estimated GFR > 60 Random Glucose 115 (60-115) mg/dL Calcium 9.9 (8.4-10.2) mg/dL Magnesium 2.3 (1.6-2.6) mg/dL Total Bilirubin 0.4 (0.0-1.0) mg/dL Direct Bilirubin 0.2 (0.0-0.5) mg/dL AST 35 H (5-31) U/L ALT 68 H (0-31) U/L Alkaline Phosphatase 100 (39-117) U/L Troponin I High Sens < 2.7 (<3.5-17.0) ng/L Total Protein 8.2 H (6.5-8.0) g/dL Albumin 4.8 (3.5-5.0) g/dL Urine Color Yellow Urine Appearance Clear Urine pH 6.0 (5.0-9.0) Ur Specific Garfield <= 1.005 (1.005-1.025) Urine Protein Negative (Neg-Trace) mg/dL Urine Glucose (UA) Negative (Negative) mg/dL Urine Ketones Negative (Negative) mg/dL Urine Blood Moderate (2+) H (Negative) Urine Nitrite Negative (Negative) Ur Leukocyte Esterase Negative (Negative) Urine RBC 6-10 H (0-2) /HPF Urine WBC 0-5 (0-5) /HPF Ur Squamous Epith Cells 0-2 (0-2) /HPF Urine Bacteria None Seen (None Seen) Hyaline Casts 0-2 (0-2) /LPF Urine Opiates Screen Not Detected (Not Detect) Urine Fentanyl Screen Not Detected (Not Detect) Ur Barbiturates Screen Not Detected (Not Detect) Ur Phencyclidine Scrn Not Detected (Not Detect) Ur Amphetamines Screen Not Detected (Not Detect) U Benzodiazepines Scrn Not Detected (Not Detect) Urine Cocaine Screen Not Detected (Not Detect) U Marijuana (THC) Screen POSITIVE H (Not Detect) Influenza Type A (PCR) NEGATIVE (Negative) Influenza Type B (PCR) NEGATIVE (Negative) RSV RNA Qual (PCR) NEGATIVE (Negative) SARS-CoV-2 RNA (RT-PCR) NEGATIVE (Negative) Discharge Plan Discharge Clinical Impression: Dizziness Patient Disposition: Left W/O Completing Treatment Prescriptions: No Action menthol-zinc oxide [Calmoseptine] 0.44-20.6 % ointment 1 appl topical QID PRN (Reason: wound healing) Qty: 113 1RF atenolol 25 mg tablet 25 mg PO DAILY Dulera 200-5 mcg/actuation Hfa Aerosol Inhaler 2 puff INHALATION BID omeprazole 20 mg Capsule,Delayed Release(Dr/Ec) 20 mg PO DAILY@0630 albuterol sulfate [ProAir HFA] 90 mcg/actuation Hfa Aerosol Inhaler 2 puff INHALATION Q4H PRN (Reason: Respiratory Distress) oxycodone-acetaminophen [Percocet] 5-325 mg tablet 1 tab PO Q4-6H PRN (Reason: pain) Qty: 30 0RF Rx Instructions: Partial Fill upon patient request. quetiapine 200 mg tablet 200 mg PO BEDTIME bupropion HCl 150 mg tablet extended release 24 hr 150 mg PO QAM cholecalciferol (vitamin D3) [Vitamin D3] 25 mcg (1,000 unit) capsule 25 mcg PO QAM clonazepam 1 mg tablet 1 mg PO BID PRN (Reason: Anxiety) Discharge Date/Time: 11/20/23 18:49
--- NOTE | 2023-11-20 11:59 | ECG_ITS ---
Test Reason : syncopy Blood Pressure : / mmHG Vent. Rate : 050 BPM Atrial Rate : 050 BPM P-R Int : 142 ms QRS Dur : 076 ms QT Int : 428 ms P-R-T Axes : 071 026 037 degrees QTc Int : 390 ms Sinus bradycardia Otherwise normal ECG When compared with ECG of 26-NOV-2022 12:16, No significant change was found Referred By: Angella Sawyer Electronically Signed By:TOM HERNANDEZ MD
[2023-11-20 12:21] LABS: MANUAL DIFF FLAG NO
[2023-11-20 12:23] LABS: Basophils Absolute Auto 0.1 X10*3/uL (0.0-0.2); Basophils Percent Auto 0.6 % (0-2); Eosinophils Absolute Auto 0.3 X10*3/uL (0.0-0.4); Eosinophils Percent Auto 2.5 % (0-4); Hematocrit 46.4 % (37.0-47.0); Hemoglobin 15.8 g/dl (12.0-16.0); Imm Gran Abs Auto 0.05 X10*3/uL (0.00-0.03); Imm Gran Pct Auto 0.4 % (0.0-0.4); Lymphocytes Absolute Auto 3.1 X10*3/uL (1.2-4.9); Lymphocytes Percent Auto 25.9 % (20-40); Mean Corpuscular HGB Conc 34.1 g/dl (31.0-35.0); Mean Corpuscular Hemoglobin 30.7 pg (27.0-33.0); Mean Corpuscular Volume 90.1 fL (80.0-98.0); Mean Platelet Volume 10.6 fL (9.4-12.3); Monocytes Absolute Auto 0.6 X10*3/uL (0.1-1.2); Monocytes Percent Auto 5.1 % (2-11); Neutrophils Absolute Auto 7.8 x10*3/uL (2.0-8.3); Neutrophils Percent Auto 65.5 % (45-73); Platelet Count 338 X10*3/uL (160-400); Red Blood Count 5.15 X10*6/uL (4.20-5.50); Red Cell Distribution Width 12.5 % (11.0-16.0); White Blood Count 11.9 X10*3/uL (4.8-10.8)
[2023-11-20 12:25] LABS: Appearance Urine Clear; Color Urine Yellow; Glucose Urine UA Negative (Negative); Leukocyte Esterase Urine Negative (Negative); Nitrite Urine Negative (Negative); Specific Gravity - Urine <= 1.005 (1.005-1.025); UMIC TRIGGER UACC YES; Urine Blood Moderate (2+) (Negative); Urine Ketones Negative (Negative); Urine Protein Negative (Neg-Trace)
[2023-11-20 12:31] LABS: Amphetamine Screen Urine Not Detected (Not Detect); Barbiturates, Urine Not Detected (Not Detect); Benzodiazepines Screen Urine Not Detected (Not Detect); Cannabinoid Screen Urine POSITIVE (Not Detect); Cocaine Screen Urine Not Detected (Not Detect); Fentanyl, urine Not Detected (Not Detect); Opiate Screen Urine Not Detected (Not Detect); Phencyclidine Screen Urine Not Detected (Not Detect)
[2023-11-20 12:36] LABS: Prothrombin Time 12.7 SEC (11.1-13.3)
[2023-11-20 12:40] LABS: Alanine Aminotransferase 68 U/L (0-31); Albumin Level 4.8 g/dL (3.5-5.0); Alkaline Phosphatase 100 U/L (39-117); Anion Gap 14 (12-20); Aspartate Amino Transferase 35 U/L (5-31); Bilirubin Direct 0.2 mg/dL (0.0-0.5); Bilirubin Total 0.4 mg/dL (0.0-1.0); Blood Urea Nitrogen 10 mg/dL (9-16); Calcium 9.9 mg/dL (8.4-10.2); Carbon Dioxide 26 mmol/L (22-29); Chloride 105 mmol/L (96-108); Creatinine Clr Calc Pharmacy 61.7; Estimated Glomerular Filt Rate > 60; Glucose Random 115 mg/dL (60-115); Magnesium 2.3 mg/dL (1.6-2.6); Potassium 4.1 mmol/L (3.3-5.1); Sodium 141 mmol/L (135-145); Total Protein 8.2 g/dL (6.5-8.0)
[2023-11-20 12:48] LABS: Troponin-I High Sensitivity < 2.7 ng/L (<3.5-17.0)
[2023-11-20 13:00] LABS: Bacteria Urine None Seen (None Seen); Hyaline Casts Urine 0-2 /LPF (0-2); Squamous Epithelial Cell Urine 0-2 /HPF (0-2); WBC Urine 0-5 /HPF (0-5)
[2023-11-20 13:08] LABS: Influenza A PCR NEGATIVE (Negative); Influenza B PCR NEGATIVE (Negative); Resp Syncy Virus RNA Qual PCR NEGATIVE (Negative); SARS COV2 PCR INHOUSE NEGATIVE (Negative)
== END 2023-11-20 18:49 | disposition left against medical advice (07) ==
LOC: HO.ED 18:40
PROVIDERS: Physician Assistant; Emergency Provider Emergency Medicine; PCP Family Medicine
DX: R55 Syncope and collapse (principal); Z11.52 Encounter for screening for COVID-19; Z20.828 Contact with and (suspected) exposure to other viral communicable diseases; I10 Essential (primary) hypertension; D64.9 Anemia, unspecified; Z79.899 Other long term (current) drug therapy
CPT/HCPCS: 0241U; 36415; 70450; 71045; 80048; 80076; 80307; 81001; 83735; 84484; 85025; 85610; 93005; 99283; 99284

== ENCOUNTER → 2023-11-20 11:59 | Outpatient (BNV) | payer MEDICAID, SELFPAY | PROVIDERS: PCP Family Medicine; Visit Provider Internal Medicine Cardiovascular Disease | DX: R55 Syncope and collapse (principal) | CPT/HCPCS: 93010 ==

== ENCOUNTER 2023-12-03 14:59 | Outpatient (REF) | payer MEDICAID, SELFPAY ==
--- NOTE | ~2023-12-03 | MM_ITS ---
EXAMINATION: MM SCREENING DIGITAL BREAST TOMOSYNTHESIS, BILATERAL CLINICAL INFORMATION: Screening. Asymptomatic. COMPARISON: Mammography: 09/27/2022, 12/20/2020, 12/15/2019, 09/10/2018, 08/29/2018, 03/27/2017 TECHNIQUE: Digital breast tomosynthesis is performed in both the craniocaudal and mediolateral oblique views along with computer-aided detection (CAD). Synthesized 2D images are generated from the tomosynthesis. FINDINGS: There are scattered areas of fibroglandular density (ACR BI-RADS breast composition Category b). There are no suspicious masses, suspicious grouped calcifications, or areas of architectural distortion in either breast. The parenchymal pattern is stable from prior exams. No skin or axillary abnormality. MM/MM tomosynthesis screening BI IMPRESSION: No mammographic evidence of malignancy. ASSESSMENT: BI-RADS BI-RADS 1 - Negative RECOMMENDATION: Routine annual mammography screening. 1 year F/U This examination should not preclude the clinical evaluation of a suspicious palpable abnormality. This patient's information was entered into a reminder system with a target due date for their next mammogram.
== END 2023-12-03 15:00 | disposition home or self-care (01) ==
LOC: HO.MAMMO 14:59
PROVIDERS: PCP Family Medicine; Visit Provider Family Medicine
DX: Z12.31 Encounter for screening mammogram for malignant neoplasm of breast (principal)
CPT/HCPCS: 77063; 77067

== ENCOUNTER → 2023-12-03 15:15 | Outpatient (BNV) | payer MEDICAID, SELFPAY | PROVIDERS: PCP Family Medicine; Visit Provider Radiology Diagnostic Radiology | DX: Z12.31 Encounter for screening mammogram for malignant neoplasm of breast (principal) | CPT/HCPCS: 77063; 77067 ==

== ENCOUNTER 2024-06-18 11:42 | Outpatient (REF) | payer MEDICAID, SELFPAY ==
--- NOTE | ~2024-06-18 | XR_ITS ---
EXAMINATION: XR THORACIC SPINE CLINICAL INFORMATION: sharp thorascic back pain COMPARISON: None available. TECHNIQUE: 2 views of the thoracic spine were obtained. FINDINGS: There is normal bony mineralization. No fracture, compression deformity, or focal bony abnormality. No scoliosis. Normal kyphosis. Normal alignment without subluxation. Disc spaces normal. Facets normally aligned. Imaged soft tissues and lungs normal. XR/XR thoracic spine 2V IMPRESSION: Normal thoracic spine. Electronically signed by: Jose Marcus MD 08/29/2024 08:15 PM ROMAN
--- NOTE | ~2024-06-18 | XR_ITS ---
EXAMINATION: XR ABDOMEN KUB CLINICAL INDICATION: sharb mid back and flank pain COMPARISON: No priors. TECHNIQUE: AP view of the abdomen. FINDINGS: The bowel gas pattern is normal with no evidence of ileus or obstruction. No abnormal soft tissue calcifications are noted. Edmundo's lobe of the liver noted. Osseous structures appear normal. XR/XR KUB IMPRESSION: Edmundo's lobe of the liver. Otherwise Normal KUB radiograph. Electronically signed by: Jose Marcus MD 08/29/2024 08:13 PM ROMAN
[2024-06-18 13:34] LABS: MANUAL DIFF FLAG NO
[2024-06-18 13:45] LABS: Basophils Percent Auto 0.5 % (0-2); Eosinophils Absolute Auto 0.2 X10*3/uL (0.0-0.4); Eosinophils Percent Auto 3.1 % (0-4); Hematocrit 42.7 % (37.0-47.0); Hemoglobin 14.3 g/dl (12.0-16.0); Imm Gran Abs Auto 0.03 X10*3/uL (0.00-0.03); Imm Gran Pct Auto 0.4 % (0.0-0.4); Lymphocytes Absolute Auto 2.9 X10*3/uL (1.2-4.9); Lymphocytes Percent Auto 37.2 % (20-40); Mean Corpuscular HGB Conc 33.5 g/dl (31.0-35.0); Mean Corpuscular Hemoglobin 30.7 pg (27.0-33.0); Mean Corpuscular Volume 91.6 fL (80.0-98.0); Mean Platelet Volume 11.3 fL (9.4-12.3); Monocytes Absolute Auto 0.4 X10*3/uL (0.1-1.2); Monocytes Percent Auto 5.4 % (2-11); Neutrophils Absolute Auto 4.1 x10*3/uL (2.0-8.3); Neutrophils Percent Auto 53.4 % (45-73); Platelet Count 263 X10*3/uL (160-400); Red Blood Count 4.66 X10*6/uL (4.20-5.50); White Blood Count 7.7 X10*3/uL (4.8-10.8)
[2024-06-18 13:49] LABS: Estimated Average Glucose 117 mg/dL; Hemoglobin A1c % 5.7 % (<6.0)
[2024-06-18 14:08] LABS: Alanine Aminotransferase 45 U/L (0-31); Albumin Level 4.1 g/dL (3.5-5.0); Alkaline Phosphatase 80 U/L (39-117); Anion Gap 12 (12-20); Aspartate Amino Transferase 25 U/L (5-31); Bilirubin Direct 0.2 mg/dL (0.0-0.5); Bilirubin Total 0.5 mg/dL (0.0-1.0); Blood Urea Nitrogen 14 mg/dL (9-16); Calcium 9.7 mg/dL (8.4-10.2); Carbon Dioxide 20 mmol/L (22-29); Chloride 111 mmol/L (96-108); Cholesterol 169 mg/dL (<200); Estimated Glomerular Filt Rate 53; Glucose Random 102 mg/dL (60-115); HDL Cholesterol 35 mg/dL (>40); LDL Cholesterol Calculated 104 mg/dL (<100); Potassium 4.2 mmol/L (3.3-5.1); Sodium 139 mmol/L (135-145); Total Protein 6.9 g/dL (6.5-8.0); Triglycerides 154 mg/dL (<150)
[2024-06-18 14:11] LABS: TSH reflex Free T4 0.58 uIU/mL (0.32-4.0); Vitamin D 25-OH Total 57.5 ng/mL (>30)
[2024-06-18 14:28] LABS: Folate 10.3 ng/mL (> or = 4.0); Vitamin B12 237 pg/mL (200-900)
[2024-06-22 11:48] LABS: RPR Rapid Plasma Reagin NON-REACTIVE (NON-REACTIVE)
== END 2024-06-18 11:43 | disposition home or self-care (01) ==
LOC: HO.HHCL 11:42
PROVIDERS: Visit Provider Family Medicine
DX: R41.3 Other amnesia (principal); R74.01 Elevation of levels of liver transaminase levels; R42 Dizziness and giddiness; I10 Essential (primary) hypertension; M54.9 Dorsalgia, unspecified
CPT/HCPCS: 36415; 72070; 74018; 80048; 80061; 80076; 82306; 82607; 82746; 83036; 83735; 84443; 85025; 86592

== ENCOUNTER → 2024-06-18 12:23 | Outpatient (BNV) | payer MEDICAID, SELFPAY | PROVIDERS: Visit Provider Radiology Diagnostic Radiology | DX: M54.9 Dorsalgia, unspecified (principal); R10.9 Unspecified abdominal pain | CPT/HCPCS: 72070; 74018 ==

== ENCOUNTER 2024-09-18 08:56 | Outpatient (REF) | payer MEDICAID, SELFPAY ==
[2024-09-18 12:05] LABS: Alanine Aminotransferase 55 U/L (0-31); Albumin Level 4.1 g/dL (3.5-5.0); Alkaline Phosphatase 82 U/L (39-117); Aspartate Amino Transferase 47 U/L (5-31); Bilirubin Direct 0.2 mg/dL (0.0-0.5); Bilirubin Total 0.4 mg/dL (0.0-1.0); Cholesterol 162 mg/dL (<200); HDL Cholesterol 37 mg/dL (>40); Iron 70 mcg/dL (30-160); LDL Cholesterol Calculated 83 mg/dL (<100); Percent Iron Saturation 24 % (15-50); Total Iron Binding Capacity 296 mcg/dL (228-428); Total Protein 6.9 g/dL (6.5-8.0); Triglycerides 211 mg/dL (<150); Unsaturated Iron Binding 226 ug/dL
[2024-09-18 12:14] LABS: Ferritin 158 ng/mL (10-250)
[2024-09-18 12:18] LABS: Monotest Negative (Negative)
[2024-09-18 13:16] LABS: Creatinine Urine 180.56 mg/dL; Microalbum/Creatinine Ratio Ur 11.6 ug/mg cr (<30)
[2024-09-18 13:27] LABS: Appearance Urine Cloudy; Color Urine Yellow; Glucose Urine UA Negative (Negative); Leukocyte Esterase Urine Negative (Negative); Nitrite Urine Negative (Negative); UMIC TRIGGER UACC YES; Urine Blood Moderate (2+) (Negative); Urine Ketones Negative (Negative); Urine Protein Negative (Neg-Trace)
[2024-09-18 13:45] LABS: Bacteria Urine None Seen (None Seen); Hyaline Casts Urine 0-2 /LPF (0-2); Squamous Epithelial Cell Urine 0-2 /HPF (0-2); WBC Urine 0-5 /HPF (0-5)
[2024-09-19 04:50] LABS: HBS Num1 > 1000.00 mIU/mL (0-7.99); HBc Num1 0.09 S/CO (0.00-0.79); HBsAGNum1 0.45 S/CO (0.00-0.99); Hepatitis A Antibody IgM 0.18 Index (0-0.79); Hepatitis B Core Antibody Nonreactive (Nonreactive); Hepatitis B Surface Antigen Negative (Negative); ~HepC Num1 0.11 S/CO (0.00-0.79); ~Hepatitis A Antibody IgM Nonreactive (Nonreactive); ~Hepatitis B Surface Antibody REACTIVE (Nonreactive); ~Hepatitis C Antibody Nonreactive (Nonreactive)
[2024-09-20 05:54] LABS: Ceruloplasmin 24 mg/dL (14-48)
[2024-09-21 13:19] LABS: Alpha Fetoprotein 4.1 ng/mL
[2024-09-21 21:43] LABS: EBV-NA IgG Index >600.00 U/mL; EBV-VCA IgM Ab <36.00 U/mL
[2024-09-22 07:48] LABS: Anti Nuclear Antibody Screen NEGATIVE (NEGATIVE)
[2024-09-22 11:13] LABS: Mitochondrial Antibodies NEGATIVE (NEGATIVE)
[2024-09-25 13:38] LABS: Smooth Muscle Antibody <20 U (<20)
== END 2024-09-18 08:57 | disposition home or self-care (01) ==
LOC: HO.HHCL 08:56
PROVIDERS: Visit Provider Family Medicine
DX: R74.01 Elevation of levels of liver transaminase levels (principal); I10 Essential (primary) hypertension; R31.29 Other microscopic hematuria; R53.83 Other fatigue
CPT/HCPCS: 36415; 80061; 80076; 81001; 82043; 82105; 82390; 82570; 82728; 83540; 86015; 86038; 86308; 86381; 86664; 86665; 86704; 86706; 86709; 86803; 87340

== ENCOUNTER 2024-12-11 14:22 | Outpatient (REF) | payer MEDICAID, SELFPAY ==
--- NOTE | ~2024-12-11 | US_ITS ---
EXAMINATION: US RETROPERITONEAL LIMITED (RENAL ONLY) CLINICAL INFORMATION: Microscopic hematuria. Left renal cyst. COMPARISON: 02/16/2021. Correlation made with CT abdomen and pelvis 11/26/2022. TECHNIQUE: Real-time imaging of the kidneys. FINDINGS: RIGHT KIDNEY: 9.7 x 4.4 x 3.5 cm (SAG x AP x TRV). The kidney is normal in size, contour, and echogenicity. Renal cortical thickness is normal. No calculi or focal parenchymal lesions. No hydronephrosis. LEFT KIDNEY: 9.4 x 4.9 x 4.7 cm (SAG x AP x TRV). The kidney is normal in size, contour, and echogenicity. Renal cortical thickness is normal. No calculi or focal suspicious parenchymal lesions. No hydronephrosis. There is a mid pole simple cortical cyst measuring 2.5 x 2.4 x 2.5 cm (previously measuring 2.2 x 2.1 x 2.0 in 2020). US/US renal BI IMPRESSION: 1. 2.5 cm mid pole left renal cortical simple cyst. 2. Otherwise normal kidneys bilaterally. Electronically signed by: Jose Marcus MD 12/11/2024 03:34 PM EDT
--- OUTSIDE RECORDS SUMMARY | 2024-12-11 16:00 | XMS_ITS | Encounter Summary ---
Author Organization [employer] Address [address] [place] [address] [address] [place] [address] Care Team Providers Care Strategic Account Director Name Role Phone Paty Bowen MD Primary Care Provider [phone]- [phone] Mary Ann Gan PharmD Unavailable Karine Quinonez MD Unavailable [phone] Encounter Details Date Type Department Care Team (Late st Contact Info) Description 07/01/2023 Abstract [facility] MEDICINE [address] [place], [place] [id number] Paty Bowen MD [address] [place], [place] [id number] Essential hypertension; Preventative health care; Depressive disorder; Vitamin B12 deficiency (non anemic); Mild persistent asthma without complication; Chronic gastritis without bleeding, unspecified gastritis type; Memory changes Social History Tobacco Use Types Packs/Day Years Used Date Smoking Tobacco: Never Passive Smoke Exposure: Never Smokeless Tobacco: Never Depression Answer Date Recorded Patient Health Questionnaire-2 Score 0 09/12/2022 Comments Unknown Sex and Gender Information Value Date Recorded Sex Assigned at Female 07/30/2022 10:15 AM EDT Legal Sex Female 10:15 AM EDT Gender Identity Female 07/30/2022 10:15 AM EDT Sexual Orientation Straight 07/30/2022 10 :15 AM EDT documented as of this encounter Plan of Treatment Not on file documented as of this encounter Visit Diagnoses Diagnosis Essential hypertension Unspecified essential hypertension Preventative health care Routine general medical examination at a health care facility Depressive disorder Depressive disorder, not elsewhere classified Vitamin B12 deficiency (non anemic) Other B-complex deficiencies Mild persistent asthma without complication Chronic gastritis without bleeding, unspecified gastritis type Memory changes documented in this encounter Care Teams Strategic Account Director Relationship Specialty Start Date End Date Paty Bowen MD [address] [place] [address] PCP - General Family Medicine 09/30/18 Mary Ann Gan, Evgeny [address] [place] [address] Pharmacist Internal Medicine 04/29/24 Karine Quinonez MD [address] [place] [address] Drive 3rd [place] [address] Gastroenterology 10/06/24 documented as of this encounter
--- OUTSIDE RECORDS SUMMARY | 2024-12-11 16:00 | XMS_ITS | Encounter Summary ---
Author Organization [employer] Address [address] [facility] [address]t [place] [address] Care Team Providers Care Pan Shover Name Role Phone Paty Bowen MD Primary Care Provider [phone] Mary Ann Gan PharmD Unavailable [phone] Karine Quinonez MD Unavailable [phone] Encounter Details Date Type Department Care Team ([facility] st Contact Info) Description 12/11/2024 Population Health Risk Score [facility] () Department [address] [place] [id number] Provider, Population Health Generic Social History Tobacco Use Types Packs/Day Years Used Date Smoking Tobacco: Never Passive Smoke Exposure: Never Smokeless Tobacco: Never Alcohol Answer Date Recorded Frequency of Alcohol Consumption Not on file 07/22/2024 Average Number of Drinks Not on file 024 Frequency of Binge Drinking Not on file 07/01 Score 0 07/22/2024 Depression Answer Date Recorded Patient Health Questionnaire-9 Score 21 06/18/2024 Patient Health Questionnaire-9 Score 21 06/18/2024 Last PHQ-9: Questionnaire Data Not on file 0 06/18/2024 Housing Stability Answer Date Recorded What is your housing situation today? I do not have housing (Staying with others, in a hotel, in a intermediate, living outside on the street, on a beach, in a car, or in a park 10/16/[address] you li ve. Do you have problems with any of the following? None of the above 10/16/2024 Food Insecurity Answer Date Recorded Within the past 12 months, y ou worried that your food would run out before you got money to buy more: Often true 10/16/2024 Within the past 12 months,th e food you bought just didn't last and you didn't have enough money to get more: Often true Transportation Answer Date Recorded In the past 12 months, has l ack of transportation kept you from medical appts, meetings, work or from getting things needed for daily living? Yes, it has kept me from medical appointments or getting medications. 10/16/2024 Utilities Answer Date Recorded In the past 12 months, has t he [employer], gas, oil or water company threatened to shut off services in your home? No 09/09/2023 Depression Answer Date Recorded Patient Health Questionnaire-2 Score 4 06/18/2024 Internet Access Answer Date Recorded Internet Access Q1 Yes 06/11/2024 Internet Access Q2 Not on file 06/11/2024 Comments Unknown Sex and Gender Information Value Date Recorded Sex Assigned at Female 07/30/2022 10:15 AM EDT Legal Sex Female 10:15 AM EDT Gender Identity Female 07/30/2022 10:15 AM EDT Sexual Orientation Straight 07/30/2022 10 :15 AM EDT documented as of this encounter Plan of Treatment Not on file documented as of this encounter Goals Goal Patient Goal Type Associated Problems Recent Progress Patient-Stated? Author Blood Pressure < 140/90 Blood Pressure 118/58( 025 1:15 PM EST) No Mary Ann Reyna PharmD documented as of this encounter Visit Diagnoses Not on filedocumented in this encounter Additional Health Concerns Assessment Noted Time PHQ-9 Depression Total Score: 21 024 10:39 AM EDT documented as of this encounter Care Teams Pan Shover Relationship Specialty Start Date End Date Paty Bowen MD [address] [place] [address] PCP - General Family Medicine 09/30/18 Mary Ann Gan, ChristopherD [address] [place] [address] Pharmacist Internal Medicine 04/29/24 Karine Quinonez MD [address] [place] [address] Drive 3rd Floor [place] [address] Gastroenterology 10/06/24 documented as of this encounter
--- OUTSIDE RECORDS SUMMARY | 2024-12-11 16:00 | XMS_ITS | Encounter Summary ---
Author Organization [employer] Address [address] [place] [address] 7[address] [place] [address] Care Team Providers Care Gambling Floor Supervisor Name Role Phone Paty Bowen MD Primary Care Provider [phone]- [phone] Mary Ann Gan PharmD Unavailable [phone] Karine Quinonez MD Unavailable [phone] Encounter Details Date Type Department Care Team (Late st Contact Info) Description 01/28/2023 Orders Only [facility] MEDICINE [address] [place] [address] Paty Bowen MD [address] [place] [address] Social History Tobacco Use Types Packs/Day Years Used Date Smoking Tobacco: Never Assessed Depression Answer Date Recorded Patient Health Questionnaire-2 Score 0 09/12/2022 Comments Unknown Sex and Gender Information Value Date Recorded Sex Assigned at Female 07/30/2022 10:15 AM EDT Legal Sex Female 10:15 AM EDT Gender Identity Female 07/30/2022 10:15 AM EDT Sexual Orientation Straight 07/30/2022 10 :15 AM EDT COVID-19 Exposure Response Date Recorded In the last 10 days, have yo u been in contact with someone who was confirmed or suspected to have Coronavirus/COVID-19? Unable to assess 01/25/2023 1:18 PM EDT documented as of this encounter Plan of Treatment Not on file documented as of this encounter Visit Diagnoses Not on filedocumented in this encounter Care Teams Gambling Floor Supervisor Relationship Specialty Start Date End Date Paty Bowen MD [address] [place] [address] PCP - General Family Medicine 09/30/18 Mary Ann Gan, ChristopherD [address] [place] [address] Pharmacist Internal Medicine 04/29/24 Karine Quinonez MD [address] [place] [address] 3rd [place] [address] Gastroenterology 10/06/24 documented as of this encounter
--- OUTSIDE RECORDS SUMMARY | 2024-12-11 16:00 | XMS_ITS | Clinical Summary ---
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 Signed By: <Electronically signed by Jose Marcus MD in OV> 12/11/24 1534 DD/ 1437 TD/TT: 12/11/24 1444 Trial Attorney: Paty Bowen MD IMG US PROCEDURES Final Re sult * (ABNORMAL) Urinalysis, Complete, with Reflex to Culture (09/18/2024 9:01 AM EST) Color Urine Yellow [facility] Appearance Urine Cloudy [facility] PH 5.0 5.0 - 9.0 [facility] Glucose Urine UA Negative Negative mg/dL [facility] Urine Blood Moderate (2+)(A) Negative [facility] Specific [place] - Urine 1.020 1.005 - 1.025 [facility] Urine Protein Negative Neg-Trace mg/dL [facility] Urine Ketones Negative Negative mg/dL [facility] Nitrite Urine Negative Negative [facility] Leukocyte Esterase Urine Negative Negative [facility] RBC Urine 3-5(A) 0 - 2 /HPF [facility] Urine WBC 0-5 0 - 5 /HPF [facility] Urine Squamous Epithelial Cell 0-2 0 - 2 /HPF [facility] Urine Bacteria None Seen None Seen [facility] Hyaline Casts, Urine 0-2 0 - 2 /LPF [facility] Urine 09/18/2024 9:01 AM EST 09/18/2024 11:56 AM EST Narrative [facility] - 09/18/2024 1:46 PM EST Urine, Clean Catch Paty Bowen MD LAB URINE ORDERABLES Final Result [facility] [address] [place] [phone] * Hepatitis Panel, General (09/18/2024 9:01 AM EST) Hepatitis A IgM Nonreactive Nonreactive [facility] Comment:IgM antibodies to OLIVER V not detected; does not exclude earlyacute or recovered HAV infection. ~Hepatitis B Surface Antibody REACTIVE Nonreactive [facility] Comment:REACTIVE: > 11.99 mI U/mL Hepatitis B Core Antibody Nonreactive Nonreactive [facility] Hepatitis C Antibody Nonreactive Nonreactive [facility] Comment:Antibodies to HCV no t detected; does not exclude early acuteHCV infection. Hepatitis B Surface Ag Negative Negative [facility] Blood Venous blood specimen / Unknown 09/18/2024 9:01 AM EST 09/18/2024 11:32 AM EST Paty Bowen MD LAB BLOOD ORDERABLES Final Result Performing Organization Address [facility] Co de Phone Number [facility] [address] [place] [phone] [phone] * Albumin, Random Urine W/Creatinine (09/18/2024 9:01 AM EST) Creatinine, Urine 180.56 mg/dL [facility] Microalbumin Urine 21.0 mg/L [facility] Microalbum Creatinine Ratio Ur 11.6 <30 ug/mg cr [facility] Comment:Albumin/Creatinine R atio Reference Ranges: Normal: < 30 ug/mg creatinine Microalbuminuria: 30 - 300 ug/mg creatinineClinical Albuminuria: > 300 ug/mg creatinine Urine 09/18/2024 9:01 AM EST 09/18/2024 11:56 AM EST Paty Bowen MD LAB URINE ORDERABLES Final Result Performing Organization Address [facility] de Phone Number [facility] [address] [place] [phone] * (ABNORMAL) Maggie-Mercedes Virus Antibody Panel (09/18/2024 9:01 AM EST) EBV Viral Capsid Antigen (VCA) Antibody IgG 236.00(A) U/mL [facility] Comment:U/mL Interpretation ---- <18.00 Negative 18.00-21.99 Equivocal >21.99 Positive EBV Viral Capsid Antigen (VCA) Ab IgM <36.00 U/mL [facility] Comment:U/mL Interpretation ---- <36.00 Negative 36.00-43.99 Equivocal >43.99 Positive EBV Nuclear Antigen (EBNA) Antibody IgG >600.00(A ) U/mL [facility] Comment:U/mL Interpretation ---- <18.00 Negative 18.00-21.99 Equivocal >21.99 Positive Interpretation: SEE NOTE [facility] Comment:Suggestive of a past Maggie-Mercedes virus infection.In infants, a similar pattern may occur as a resultof passive maternal transfer of antibody.THIS TEST WAS PERFORMED AT:[facility] [address] [id number] MORROW MD Blood Venous blood specimen / Unknown 09/18/2024 9:01 AM EST 09/18/2024 11:32 AM EST Paty Bowen MD LAB BLOOD ORDERABLES Final Result Performing Organization Address [facility] Co de Phone Number [facility] [address] [place] [phone] * Iron And Total Iron Binding Capacity (09/18/2024 9:01 AM EST) Iron 70 30 - 160 mcg/dL [facility] Total Iron Binding Capacity 296 228 - 428 mcg/dL [facility] Percent Iron Saturation 24 15 - 50 % [facility] Unsaturated Iron Binding 226 ug/dL [facility] Blood Venous blood specimen / Unknown 09/18/2024 9:01 AM EST 09/18/2024 11:32 AM EST Paty Bowen MD LAB BLOOD ORDERABLES Final Result Performing Organization Address [facility] Co de Phone Number [facility] [address] [place] [phone] * Actin (Smooth Muscle) Antibody (IgG) (09/18/2024 9:01 AM EST) Smooth Muscle Antibody <20 <20 U [facility] Comment:Reference Range: <20 U: Negative>or=20 U: PositiveAntibodies recognizing actin are the main componentof smooth muscle antibodies associated with auto- immune liver disease. Actin antibodies are found inapproximately 75% of patients with autoimmunehepatitis (AIH) type 1, approximately 65% of patientswith autoimmune cholangitis, approximately 30% ofpatients with primary biliary cirrhosis andapproximately 2% of healthy controls. High values areclosely correlated with AIH type 1.THIS TEST WAS PERFORMED AT:[id number] [place] [address]NJRNITXGLENDY ABREU MD,PHD Blood Venous blood specimen / Unknown 09/18/2024 9:01 AM EST 09/18/2024 11:32 AM EST Paty Bowen MD LAB BLOOD ORDERABLES Final Result Performing Organization Address [facility]/ZIP Co de Phone Number [facility] [address] [place] [phone] * Ceruloplasmin (09/18/2024 9:01 AM EST) Ceruloplasmin 24 14 - 48 mg/dL [facility] Comment:THIS TEST WAS PERFOR MED AT:[facility] [address] [id number] MORROW MD Blood Venous blood specimen / Unknown 09/18/2024 9:01 AM EST 09/18/2024 11:32 AM EST Paty Bowen MD LAB BLOOD ORDERABLES Final Result Performing Organization Address City/[facility]/ZIP Co de Phone Number [facility] [address] [place] [phone] * Alpha-Fetoprotein, Tumor Marker (09/18/2024 9:01 AM EST) Alpha Fetoprotein 4.1 ng/mL [facility] Comment:Reference Range: <6. 1The use of AFP as a tumor marker in females is not recommended.This test was performed using the [employer] Coulterchemiluminescent method. Values obtained fromdifferent assay methods cannot be usedinterchangeably. AFP levels, regardless ofvalue, should not be interpreted as absoluteevidence of the presence or absence of disease.THIS TEST WAS PERFORMED AT:[facility] [address] [id number] MORROW MD Blood Venous blood specimen / Unknown 09/18/2024 9:01 AM EST 09/18/2024 11:32 AM EST Paty Bowen MD LAB BLOOD ORDERABLES Final Result Performing Organization Address [facility] Co de Phone Number [facility] [address] [place] [phone] * Mitochondrial Antibody with Reflex to Titer (09/18/2024 9:01 AM EST) Pathologist [facility] Mitochondrial Antibodies NEGATIVE NEGATIVE [facility] Comment:THIS TEST WAS PERFOR MED AT:[facility] [address] [id number] MORROW MD Mitochondrial Ab Titer TNP [facility] Blood Venous blood specimen / Unknown 09/18/2024 9:01 AM EST 09/18/2024 11:32 AM EST Paty Bowen MD LAB BLOOD ORDERABLES Final Result Performing Organization Address [facility] Co de Phone Number [facility] [address] [place] [phone] * Mononucleosis Test, Qualitative (09/18/2024 9:01 AM EST) Monotest Negative Negative [facility] Blood Venous blood specimen / Unknown 09/18/2024 9:01 AM EST 09/18/2024 11:32 AM EST Paty Bowen MD LAB BLOOD ORDERABLES Final Result Performing Organization Address [facility] Co de Phone Number [facility] [address] [place] [phone] * AMRIT Screen,IFA, with Reflex to Titer and Pattern (09/18/2024 9:01 AM EST) Anti Nuclear Antibody Screen NEGATIVE NEGATIVE [facility] Comment:AMRIT IFA is a first l ine screen for detecting thepresence of up to approximately 150 autoantibodies invarious autoimmune diseases. A negative AMRIT IFA resultsuggests an AMRIT-associated autoimmune disease is notpresent at this time, but is not definitive. If thereis high clinical suspicion for Sjogren's syndrome,testing for anti-SS-A/Ro antibody should be considered.Anti-Brandi-1 antibody should be considered for clinicallysuspected inflammatory myopathies.AC-0: NegativeInternational Consensus on AMRIT Patterns(https://doi.org/10.1515/nklb-0387-5855)For additional information, please refer tohttp://education.[employer]/faq/JAZ101(This link is being provided for informational/educational purposes only.)THIS TEST WAS PERFORMED AT:[email or web address] [place] [phone] MORROW MD AMRIT Titer [facility]RIT Pattern [facility] AMRIT TITER 2 (REF LAB) [facility] AMRIT Pattern 2 [facility] AMRIT TITER 3 [facility] AMRIT PATTERN 3 [facility] Blood Venous blood specimen / Unknown 09/18/2024 9:01 AM EST 09/18/2024 11:32 AM EST Paty Bowen MD LAB BLOOD ORDERABLES Final Result [facility] [address] [place] [phone] * Ferritin (09/18/2024 9:01 AM EST) Pathologist [facility] Ferritin 158 10 - 250 ng/mL [facility] Blood Venous blood specimen / Unknown 09/18/2024 9:01 AM EST 09/18/2024 11:32 AM EST Paty Bowen MD LAB BLOOD ORDERABLES Final Result Performing Organization Address [facility] Co va Phone Number [facility] [address] [place] [phone] * (ABNORMAL) Hepatic Function Panel (09/18/2024 9:01 AM EST) Bilirubin, Total 0.4 0.0 - 1.0 mg/dL [facility] Bilirubin, Direct 0.2 0.0 - 0.5 mg/dL [facility] Aspartate Amino Transferase 47(H) 5 - 31 U/L [facility] Alanine Aminotransferase 55(H) 0 - 31 U/L [facility] Total Protein 6.9 6.5 - 8.0 g/dL [facility] Albumin Level 4.1 3.5 - 5.0 g/dL [facility] Alkaline Phosphatase 82 39 - 117 U/L [facility] 09/18/2024 9:01 AM EST 09/18/2024 11:32 AM EST Paty Bowen MD LAB BLOOD ORDERABLES Final Result Performing Organization Address [facility] Phone Number [facility] [address] [place] [phone] * (ABNORMAL) Lipid Panel, Standard (09/18/2024 9:01 AM EST) Triglycerides 211(H) <150 mg/dL [facility] Comment:Desirable Triglyceri de: less than 150 mg/dLBorderline High Triglyceride 150-199 mg/dLHigh Triglyceride: 200-499 mg/dLVery High Triglyceride: greater than or equal to 5OO mg/dL Cholesterol 162 <200 mg/dL [facility] Comment:Desirable Cholestero l: less than 200 mg/dLBorderline High Cholesterol: 200-239 mg/dLHigh Cholesterol: greater than 239 mg/dL LDL Cholesterol Calculated 83 <100 mg/dL [facility] Comment:Desirable LDL: less than 100 mg/dLNear Optimal/Above Optimal LDL: 110- 129 mg/dLBorderline High LDL: 130-159 mg/dLHigh LDL: 160-189 mg/dLVery High LDL: greater than or equal to 190 mg/dL HDL Cholesterol 37(L) >40 mg/dL [facility] Comment:Desirable HDL: great er than 40 mg/dL Note: This HDL assay may give artificially low results in patients with liver disease. 09/18/2024 9:01 AM EST 09/18/2024 11:32 AM EST Paty Bowen MD LAB BLOOD ORDERABLES Final Result Performing Organization Address [facility]/ZIP Co de Phone Number [facility] [address] [place] [phone] * Hemoglobin A1c (06/18/2024 11:53 AM EDT) Hemoglobin A1c 5.7 <6.0 % [facility] Comment:Hemoglobin A1C Refer ence Range Adults: 4.8 - 6.0 % Non diabetic: < 6.0 % Goal: < 7.0 %Additional Action Suggested: > 8.0 %Note: Hemoglobin A1c results are invalid for patients with abnormal amounts of HbF. Blood transfusions may impact the HbA1c concentration in the patient sample. Estimated Average Glucose 117 mg/dL [facility] Comment:eAG = Estimated ave rage glucose which is %A1C expressed asaverage glucose, using the formula of the R5A-TgkztqcHclyjak Glucose study (ADAG), Diabetes Care, Vol.31,#8,Apr. 2007 Blood Venous blood specimen / Unknown 06/18/2024 11:53 AM EDT 06/18/2024 1:31 PM EDT Paty Bowen MD LAB BLOOD ORDERABLES Final Result Performing Organization Address [facility]/ZIP Co de Phone Number [facility] [address] [place] [phone] * BI Mammogram Screening Tomosynthesis Bilateral (12/03/2023 3:15 PM EST) Anatomical Region Laterality Modality Breast Bilateral Mammography 12/03/2023 3:15 PM EST Narrative 12/18/2023 9:53 AM EDT ? [facility] ?[place] [id number] ? Mammography Report ? Signed ? Patient: Colon,Elizabeth ?MR#: [id number] ? : 1965 ?Acct:[id number] ? Age/Sex: 58 / F ?ADM Date: 12/02/ ? Loc: HO.MAMMO ? Attending Dr: Paty Bowen MD ? Ordering Physician: Paty Bowen MD ?Results: 1N ?? egative ? Date of Service: 12/02/ ?Follow Up: 1 Year From Orig ?? inal Mammogram ? Procedure(s): MM tomosynthesis screening BI ?? Accession Number(s): [id number] ? cc: Paty Bowen MD ? EXAMINATION: ?? MM SCREENING DIGITAL BREAST TOMOSYNTHESIS, BILATERAL ? CLINICAL INFORMATION: ? Screening. Asymptomatic. ? COMPARISON: ?? Mammography: 09/27/2022, 12/20/2020, 12/15/2019, 09/10/2018, 08/29/2018, ?? 03/27/2017 ? TECHNIQUE: ?? Digital breast tomosynthesis is performed in both the craniocaudal and ?? mediolateral oblique views along with computer-aided detection (CAD). ?? Synthesized 2D images are generated from the tomosynthesis. ? FINDINGS: ?? There are scattered areas of fibroglandular density (ACR BI-RADS breast ?? composition Category b). ? There are no suspicious masses, suspicious grouped calcifications, or ?? areas of architectural distortion in either breast. The parenchymal ?? pattern is stable from prior exams. No skin or axillary abnormality. ? MM/MM tomosynthesis screening BI ?? IMPRESSION: ?? No mammographic evidence of malignancy. ? ASSESSMENT: ? BI-RADS BI-RADS 1 - Negative ? RECOMMENDATION: ?? Routine annual mammography screening. ? 1 year F/U ? This examination should not preclude the clinical evaluation of a ?? suspicious palpable abnormality. ? This patient's information was entered into a reminder system with a ?? target due date for their next mammogram. ? Dictated By: ?Jose Marcus MD ? Signed By: ?<Electronically signed by Jose Marcus MD in OV> ?03/20/24 0949 ? DD/ 1515 ? TD/TT: ? Trial Attorney: ? Procedure Note Greg, Image - 12/18/2023 [facility] [address] [place] [address] Mammography Report Signed Patient: Sawyer Allan#: [id number] : 1965Acct:[id number] Age/Sex: 58 / FADM Date: 12/03/23 Loc: FABIOLA.CHRISTOPHERO Attending Dr: Paty Bowen MD Ordering Physician: Paty Bowen MDResults: 1N egative Date of Service: 12/03/23Follow Up: 1 Year From Orig inal Mammogram Procedure(s): MM tomosynthesis screening BI Accession Number(s): [id number] cc: Paty Bowen MD EXAMINATION: MM SCREENING DIGITAL BREAST TOMOSYNTHESIS, BILATERAL CLINICAL INFORMATION: Screening. Asymptomatic. COMPARISON: Mammography: 09/27/2022, 12/20/2020, 12/15/2019, 09/10/2018, 08/29/2018, 03/27/2017 TECHNIQUE: Digital breast tomosynthesis is performed in both the craniocaudal and mediolateral oblique views along with computer-aided detection (CAD). Synthesized 2D images are generated from the tomosynthesis. FINDINGS: There are scattered areas of fibroglandular density (ACR BI-RADS breast composition Category b). There are no suspicious masses, suspicious grouped calcifications, or areas of architectural distortion in either breast. The parenchymal pattern is stable from prior exams. No skin or axillary abnormality. MM/MM tomosynthesis screening BI IMPRESSION: No mammographic evidence of malignancy. ASSESSMENT: BI-RADS BI-RADS 1 - Negative RECOMMENDATION: Routine annual mammography screening. 1 year F/U This examination should not preclude the clinical evaluation of a suspicious palpable abnormality. This patient's information was entered into a reminder system with a target due date for their next mammogram. Dictated By: Jose Marcus MD Signed By: <Electronically signed by Jose Marcus MD in OV> 12/18/23 0949 DD/ 1515 TD/TT: Trial Attorney: Paty Bowen MD IMG BI PROCEDURES Final Re sult * HIV AB/AG (07/30/2022 11:19 AM EDT) HIV AB/AG Nonreactive Nonreactive [facility] [employer] Comment: HIV-1 p24 Ag and/or HIV-1/HIV-2 Ab not detected. ?? A test result that is nonreactive does not exclude the possibility of exposure to or infection with HIV-1 and/or HIV-2. Nonreactive results in this assay for individuals with prior exposure to HIV-1 and/or HIV-2 may be due to antigen and antibody levels that are below the limit of detection of this assay. ?? The [employer]ide[employer] Editor HIV Ag/Ab Combo assay result and supplemental assay results should be interpreted in conjunction with the patient's clinical presentation, history and other laboratory results. ??If the results are inconsistent with clinical evidence, additional testing is suggested to confirm the result. Hepatitis B Core Antibody Nonreactive Nonreactive [facility] Hepatitis B Surface Antibody NONREACTIVE Nonreactive [facility] Comment:Nonreactive: < 8.00 mIU/mL Hepatitis B Surface Antigen Negative Negative [facility] Hepatitis C Antibody Nonreactive Nonreactive [facility] Comment: Antibodies to HCV not detected; does not exclude early acute HCV infection. 07/30/2022 11:1 9 AM EDT us Historical Provider MD HISTORICAL/NON ORDERABLE LABS Final Result [facility] * THINPREP TIS PAP AND HPV mRNA E6/E7, CT/NG, TRICH (01/26/2022 11:42 AM EDT) Chlamydia trachomatis RNA, TMA, Urogenital NOT DETECTED NOT DETECTED [facility] Clinical Information: None given [facility] COMMENT SEE COMMENT [facility] Comment: The analytical performance characteristics of this assay, when used to test SurePath(TM) specimens have been determined by [employer]. The modifications have not been cleared or approved by the FDA. This assay has been validated pursuant to the CLIA regulations and is used for clinical purposes. ?? For additional information, please refer to https://education.JustSpotted/faq/LXJ660 (This link is being provided for information/ educational purposes only.) ?? COMMENT SEE COMMENT [facility] Comment: EXPLANATORY NOTE: ? The Pap is a screening test for cervical cancer. It is ?? not a diagnostic test and is subject to false negative ?? and false positive results. It is most reliable when a ?? satisfactory sample, regularly obtained, is submitted ?? with relevant clinical findings and history, and when ?? the Pap result is evaluated along with historic and ?? current clinical information. ?? COMMENT: This Pap test has been evaluated with computer assisted technology. [facility] [employer] SYSTEM Baseball Player: SEE COMMENT [facility] Comment: LINDA EMERSON(ASCP) CT screening location: [address] ??[address] HPV nRNA E6/E7 Not Detected Not Detected [facility] Comment: Methodology: Steward[employer] Car-Mediated Amplification This assay detects E6/E7 viral messenger RNA (mRNA) from 14 high-risk HPV types (16,18,31,33,35,39,45,51,52,56,58,59,66,68). ? The analytical performance characteristics of this assay have been determined by [employer]. The modifications have not been cleared or approved by the FDA. This assay has been validated pursuant to the CLIA regulations and is used for clinical purposes. ?? For additional information, please refer to http://The Old [email or web address]/faq/VDD421h6 (This link if provided for information/ educational purposes only.) Interpretation/Re sult: Negative for intraepithelial lesion or malignancy. [facility] LMP: NONE GIVEN [facility] Neisseria gonorrhoeae RNA, TMA, Urogenital NOT DETECTED NOT DETECTED [facility] Prev. BX: NONE GIVEN [facility] Prev. PAP: NONE GIVEN [facility] SOURCE: None given [facility] Statement Of Adequacy: SEE COMMENT [facility] Comment: Satisfactory for evaluation. Endocervical/transformation zone component present. Age and/or menstrual status not provided Trichomonas vaginalis, QL, TMA, PAP Vial NOT DETECTED NOT DETECTED [facility] Comment: The analytical performance characteristics of this assay have been determined by [employer]. The modifications have not been cleared or approved by the FDA. This assay has been validated pursuant to the CLIA regulations and is used for clinical purposes. ?? For additional information, please refer to http://The Old [email or web address]/ faq/Trichomonastma (This link is being provided for information/ educational purposes only.) ?? 01/26/2022 11:4 2 AM EDT Paty Bowen MD LAB PATHOLOGY ORDERABLES F inal Result [facility] [address] * Colonoscopy (12/28/2020) Colonoscopy performed Historical Provider HEALTH MAINTENANCE Final Result from Last 3 Months or Most Recently Relevant to Health Maintenance Insurance [facility] C3 Advance Directives Documents on File Type Date Recorded Patient Ct Scan Tech Expl anation Advance Directives and Living Will 06/18/2024 Health Care Proxy 06/18/24 Care Teams Internet Cafe Manager Relationship Specialty Start Date End Date Andrés, MD [address] [place] [address] PCP - General Family Medicine 09/30/18 Mary Ann Gan, ChristopherD [address] [place] [phone] Pharmacist Internal Medicine 04/29/24 Karine Quinonez MD [address] [place] [address] [address] [place] [address] Gastroenterology 10/06/24
--- OUTSIDE RECORDS SUMMARY | 2024-12-11 16:00 | XMS_ITS | Encounter Summary ---
Author Organization [employer] Address [address] [place] [address] [address] [place] [address] Care Team Providers Care Private Detective Name Role Phone Paty Bowen MD Primary Care Provider [phone] Mary Ann Gan PharmD Unavailable [phone] Karine Quinonez MD Unavailable [phone] Reason for Visit * Reason Onset Date Comments Imaging Orders 11/18/2024 Encounter Details Date Type Department Care Team (Late st Contact Info) Description 11/18/2024 Telephone [facility] MEDICINE [address] [place], [place] [phone] Paty Bowen MD [address] [place], [place] [phone] Imaging Orders Social History Tobacco Use Types Packs/Day Years [...] with others, in a hotel, in a assisted, living outside on the street, on a [...] AM EDT documented as of this encounter Miscellaneous Notes * Telephone Encounter - Magali Jimenez RN - 11/18/2024 11:11 AM EST TC placed to pt to inquire if the Renal US ordered by Dr. Bowen on 09/18/2024 had been done yet.Per the pt, she has not been to have this imaging completed yet. RN advised that the order is in the pt chart and [place] [facility] [place] agreeable to this information and will have this done within aweeks time. Forwarding this information to PCP for FYI * Telephone Encounter - Paty Bowen MD - 11/18/2024 10:46 AM EST Den[place], what is the status of the renal US ordered 09/22/24? If done, please call for expidited read. Thank you. documented in this encounter Plan of Treatment Not on file documented as of this encounter Goals Goal Patient Goal Type Associated Problems Recent Progress Patient-Stated? Author Blood Pressure < 140/90 Blood Pressure 118/58( 025 1:15 PM EST) No Mary Ann Reyna, PharmD documented as of this encounter Visit Diagnoses Not on filedocumented in this encounter Additional Health Concerns Assessment Noted Time PHQ-9 Depression Total Score: 21 024 10:39 AM EDT documented as of this encounter Care Teams Private Detective Relationship Specialty Start Date End Date Paty Bowen MD [address] [place] [id number] PCP - General Family Medicine 09/30/18 Mary Ann Gan, PharmD [address] [place] [phone] Pharmacist Internal Medicine 04/29/24 Karine Quinonez MD [address] [place] [address] 3rd [place] [address] Gastroenterology 10/06/24 documented as of this encounter
--- OUTSIDE RECORDS SUMMARY | 2024-12-11 16:00 | XMS_ITS | Encounter Summary ---
Author Organization [employer] Address [address] [place] [address] 7t [place] [address] Care Team Providers Care Pest Locator Name Role Phone Paty Bowen MD Primary Care Provider +- [phone] Mary Ann Gan PharmD Unavailable [phone] Karine Quinonez MD Unavailable [phone] Reason for Visit * Reason Comments Med Refill Encounter Details Date Type Department Care Team (Late st Contact Info) Description 11/15/2024 Refill [facility] MEDICINE [address] [place], [place] [phone] iLnn Powers MD [address] [place], [place] [phone] Mild persistent asthma without complication Social History Tobacco Use Types Packs/Day Years [...] with others, in a hotel, in a fdc, living outside on the street, on a [...] as of this encounter Visit Diagnoses Diagnosis Mild persistent asthma without complication documented in this encounter Additional Health Concerns Assessment Noted Time PHQ-9 Depression Total Score: 21 024 10:39 AM EDT documented as of this encounter Care Teams Pest Locator Relationship Specialty Start Date End Date Paty Bowen MD [address] [place] [address] PCP - General Family Medicine 09/30/18 Mary Ann Gan, ChristopherD [address] [place] [address] Pharmacist Internal Medicine 04/29/24 Karine Quinonez MD [address] [place] [address] Drive 3rd Floor [place] [address] Gastroenterology 10/06/24 documented as of this encounter
[2024-12-11 17:21] LABS: Alanine Aminotransferase 79 U/L (0-31); Albumin Level 4.6 g/dL (3.5-5.0); Alkaline Phosphatase 87 U/L (39-117); Aspartate Amino Transferase 46 U/L (5-31); Bilirubin Direct 0.3 mg/dL (0.0-0.5); Bilirubin Total 0.8 mg/dL (0.0-1.0); Cholesterol 191 mg/dL (<200); HDL Cholesterol 46 mg/dL (>40); LDL Cholesterol Calculated 115 mg/dL (<100); Total Protein 8.1 g/dL (6.5-8.0); Triglycerides 153 mg/dL (<150)
== END 2024-12-11 14:23 | disposition home or self-care (01) ==
LOC: HO.US 14:22
PROVIDERS: PCP Family Medicine; Visit Provider Family Medicine
DX: N28.89 Other specified disorders of kidney and ureter (principal); R31.29 Other microscopic hematuria; R74.01 Elevation of levels of liver transaminase levels
CPT/HCPCS: 36415; 76775; 80061; 80076

== ENCOUNTER → 2024-12-11 14:26 | Outpatient (BNV) | payer MEDICAID, SELFPAY | PROVIDERS: PCP Family Medicine; Visit Provider Radiology Diagnostic Radiology | DX: N28.1 Cyst of kidney, acquired (principal) | CPT/HCPCS: 76775 ==

== ENCOUNTER 2025-01-12 08:54 | Outpatient (AMB) | payer MEDICAID, SELFPAY ==
--- OUTSIDE RECORDS SUMMARY | 2025-01-12 09:25 | XMS_ITS | Encounter Summary ---
Author Organization [employer] Address [address] [place] [address] [address] [place] [address] Care Team Providers Care Generation Engineer Name Role Phone Paty Bowen MD Primary Care Provider + [phone] Mary Ann Gan PharmD Unavailable [phone] Karine Quinonez MD Unavailable [phone] Encounter Details Date Type Department Care Team (Late Contact Info) Description 07/01/2023 Abstract [facility] MEDICINE [address] [place] [address] Paty Bowen MD [address] [place] [address] Essential hypertension; Preventative health care; Depressive disorder; [...] as of this encounter Plan of Treatment Upcoming Encounters Date Type Department Care Team (Late st Contact Info) Description 01/20/2025 2:00 PM EDT Medication Management [facility] MEDICINE [address] [place] [address] Mary Ann Gan, PharmD [address] [place] [phone] documented as of this encounter Visit Diagnoses Diagnosis Essential hypertension Unspecified essential hypertension Preventative health care Routine general medical examination at a health care facility Depressive disorder Depressive disorder, not elsewhere classified Vitamin B12 deficiency (non anemic) Other B-complex deficiencies Mild persistent asthma without complication Chronic gastritis without bleeding, unspecified gastritis type Memory changes documented in this encounter Care Teams Generation Engineer Relationship Specialty Start Date End Date Paty Bowen MD [address] [place] [phone] PCP - General Family Medicine 09/30/18 Mary Ann Gan PharmD [address] [place] [phone] Pharmacist Internal Medicine 04/29/24 Karine Quinonez MD [address] [place] [address] 3rd [place] [address] Gastroenterology 10/06/24 documented as of this encounter
--- OUTSIDE RECORDS SUMMARY | 2025-01-12 09:25 | XMS_ITS | Clinical Summary ---
Author Organization [employer] Address [address] [place] [address] 7t [place] [address] Care Team Providers Care Kitchen Assistant Name Role Phone Paty Bowen MD Primary Care Provider [phone] Mary Ann Gan PharmD Unavailable Karine Quinonez MD Unavailable [phone] Allergies Active Allergy Reactions Criticality Noted Date Comments Aspirin Anaphylaxis High 07/21/2018 Ibuprofen Anaphylaxis High 07/21/2018 Nsaids Anaphylaxis High 03/27/2017 Zolpidem Hives Medium 03/27/2017 Medications prazosin (Minipress) 5 MG capsuleIndication s:Major depressive disorder in partial remission, unspecified whether recurrent (CMS/HCC) Take 5 mg by mouth at bedtime. Active Misc. Devices (Pulse Oximeter) miscIndications:E ssential hypertension Use as directed 1 each 4 Active clonazePAM (KlonoPIN) 1 MG tabletIndications :Anxiety state Take by mouth 2 times daily. Active QUEtiapine XR (SEROquel XR) 400 MG 24 hr tabletIndications :Anxiety state Take 400 mg by mouth at bedtime. Do not crush, chew, or split. Active vilazodone (Viibryd) 40 mg tablet Take 40 mg by mouth in the morning. 4 Active omeprazole (PriLOSEC) [address] capsuleIndication s:Chronic gastritis without bleeding, unspecified gastritis type TAKE 1 CAPSULE BY MOUTH EVERY MORNING 90 capsule 3 5 Active atenolol (Tenormin) 25 MG tabletIndications :Essential hypertension TAKE 1 TABLET BY MOUTH EVERY MORNING 90 tablet 3 5 Active D3-1000 25 MCG (1000 UT) capsuleIndication s:Vitamin D deficiency TAKE 1 CAPSULE BY MOUTH EVERY MORNING 90 capsule 3 5 Active Dulera 200-5 MCG/ACT inhalerIndication s:Mild persistent asthma without complication INHALE 2 PUFFS BY MOUTH TWICE DAILY IN THE MORNING AND AT BEDTIME RINSE MOUTH AFTER USING. 13 g 1 5 Active cetirizine (ZyrTEC) 10 MG tabletIndications :Allergic rhinitis, unspecified seasonality, unspecified trigger Take 1 tab po daily prn allergies 90 tablet 5 Active albuterol (Ventolin HFA) 108 (90 Base) MCG/ACT inhalerIndication s:Mild intermittent asthma without complication INHALE 2 PUFFS BY MOUTH EVERY 4 HOURS NEEDED 18 g 1 5 Active Active Problems Problem Noted Date Diagnosed Date [...] Risk The 10-year ASCVD risk score (Georgina DK, et al., 2019) is: 3.5% Values used [...] due after 09/09/2024 -eye care facilitated by [employer] [place] [facility]health care proxy given and filed 06/18/24 Assessment & Plan (06/18/2024 10:55 AM EDT): -next annual evaluation due after 09/09/2024 -eye care facilitated by [employer] [place] [facility] [facility] -health care proxy given and filed 06/18/24 Assessment & Plan (09/09/2023 10:55 AM EST): -next physical exam due after 09/09/2024 -eye care facilitated by [facility] Chronic gastritis 07/01/2023 Overview (07/01/2023): -Pt [...] Collaborative Drug Therapy Managment Program with our PharmDODALIS 06/18/24 Assessment & Plan (06/18/2024 10:53 AM EDT): -Blood pressure controlled -Continue lifestyle modifications -Continue current medications -Referred to Collaborative Drug Therapy Managment Program with our PharmD on 03/27/24, -Been following with Collaborative Drug Therapy Managment Program with our PharmDODALIS 06/18/24 Assessment & Plan (03/27/2024 12:08 PM [...] -quit smoking 2022 Renal mass 08/21/2022 Overview (12/14/2024): -CT 12/07/21 . 2.2 cm left renal mass, probably a cyst but indeterminate by CT number. Follow-up (nonemergent) renal ultrasound recommended for clarification. -US ordered 09/18/25, as of 10/2024 pt reports was not able to go, encouraged to call. -US 12/12/24 US/US renal BI IMPRESSION: 2.5 cm mid pole left renal cortical simple cyst. Otherwise normal kidneys bilaterally. Lab Results Component Value Date COLORURINE Yellow [...] at 149 pg/mL 2019 Started B12 injections 2019, last 1 year ago. Recheck B12 Assessment & Plan (09/09/2023 9:51 AM EST): Labs were significant for low B12 at 149 pg/mL 2019 Started B12 injections 2019, last 1 year ago. Recheck B12 Carpal [...] XL 150mg daily and Seroquel 50mg QHS. -N to call again with patient's updated voicemail [...] Encounters Date Type Department Care Team Description 12/14/2024 Telephone [facility] [address] [place] [phone] Magali Jimenez RN Results 12/11/2024 Refill [facility] [address] [place] [phone] Paty Bowen MD Allergic rhinitis, unspecified seasonality, unspecified trigger; Mild intermittent asthma without complication 12/11/2024 Orders Only [facility] [address] [place] [phone] Paty Bowen MD 12/11/2024 Population Health Risk Score [facility] ([facility]) Department [address] [place] [phone] Provider, Population Health Generic 11/18/2024 Telephone [facility] [address] [place] [phone] Paty Bowen MD Imaging Orders 11/15/2024 Refill [facility] [address] [place] [phone] Linn Powers MD Mild persistent asthma without complication 10/29/2024 Telephone [facility] [address] [place] [address] [phone] Paty Bowen MD 10/27/2024 Telephone [facility] [address] [place] [phone] Juana Aquino MA chartprep 10/20/2024 Refill [facility] [address] [place] [phone] Paty Bowen MD Chronic gastritis without bleeding, unspecified gastritis type; Essential hypertension; Vitamin D deficiency 10/16/2024 Patient Outreach [facility] [address] [place] [phone] Paty Bowen MD Care Coordination (CHW outreach for SDOH PT-1 and food needs-referral completed /) 10/16/2024 Patient Outreach [facility] [address] [place] [address] [phone] Paty Bowen MD Pre-visit Planning (SDOH Screening positive and Tobacco screening negative) from Last 3 Months Immunizations Name Administration [...] with others, in a hotel, in a mcfp, living outside on the street, on a [...] 06/18/2024 10:32 AM EDT Plan of Treatment Upcoming Encounters Date Type Department Care Team (Late st Contact Info) Description 01/20/2025 2:00 PM EDT Medication Management [facility] [address] [place] [address] Mary Ann Gan, PharmD [address] [place] [address] Health Maintenance Due Date Last Done Comments CT Colonography 1966 FIT DNA/Cologuard 1966 FIT 1965 FOBT 1965 Sigmoidoscopy 1965 Hepatitis B Vaccines (3 of 3 - 19+ 3-dose series) 08/13/2024 06/18/2024, 09/09/2023 Depression Monitoring 12/16/2024 06/18/2024, 024 Pap Smear 01/26/2025 01/26/2022, 12/26/2021 COVID-19 Vaccine ( season) 2025 01/25/2023, 01/26/2022, 02/10/2021, Additional history exists Postponed from 05/31/2024 (Patient Refused) Depression Screening 06/18/2025 06/18/2024, 06/18/20 24 Diabetes: Hemoglobin A1C 06/18/2025 06/18/2024, 07/02 Alcohol/Substance Use Screening 07/22/2025 07/22/2024 Tobacco Screening 07/22/2025 07/22/2024 SDOH Screening 10/16/2025 10/16/2024 Mammogram 12/02/2025 12/03/2023, 08/31, 09/27/2022, Additional history exists Colonoscopy 12/28/2025 12/28/2020 Colorectal Cancer Screening 12/28/2025 Cervical Cancer Screening 01/26/2027 HPV/Cotest 01/26/2027 01/26/2022, 11/29, 08/17/2016 Lipid Panel 12/11/2029 12/11/2024, 08/31, 06/18/2024, Additional history exists DTaP/Tdap/Td Vaccines (4 - Td or Tdap) [...] Procedure Name Priority Date/Time Associated Diagnosis Comments LIPID PANEL, STANDARD Routine 12/11/2024 3:02 PM EDT HEPATIC FUNCTION PANEL Routine 3:02 PM EDT US RENAL BI Routine 12/11/2024 2:37 PM EDT Renal mass Microscopic hematuria HEPATITIS PANEL, GENERAL Routine 09/18/2024 9:01 AM EST Transaminitis HEMOGLOBIN [...] Recently Relevant to Health Maintenance Results * (ABNORMAL) Hepatic Function Panel (12/11/2024 3:02 PM EDT) Bilirubin, Total 0.8 0.0 - 1.0 mg/dL [facility] Bilirubin, Direct 0.3 0.0 - 0.5 mg/dL [facility] Aspartate Amino Transferase 46(H) 5 - 31 U/L [facility] Alanine Aminotransferase 79(H) 0 - 31 U/L [facility] Total Protein 8.1(H) 6.5 - 8.0 g/dL [facility] Albumin Level 4.6 3.5 - 5.0 g/dL [facility] Alkaline Phosphatase 87 39 - 117 U/L [facility] 12/11/2024 3:02 PM EDT 12/11/2024 3:02 PM EDT Paty Bowen MD LAB BLOOD ORDERABLES Final Result [facility] [address] [place] [phone] * (ABNORMAL) Lipid Panel, Standard (12/11/2024 3:02 PM EDT) Triglycerides 153(H) <150 mg/dL [facility] Comment:Desirable Triglyceri de: less than 150 mg/dLBorderline High Triglyceride 150-199 mg/dLHigh Triglyceride: 200-499 mg/dLVery High Triglyceride: greater than or equal to 5OO mg/dL Cholesterol 191 <200 mg/dL [facility] Comment:Desirable Cholestero l: less than 200 mg/dLBorderline High Cholesterol: 200-239 mg/dLHigh Cholesterol: greater than 239 mg/dL LDL Cholesterol Calculated 115(H) <100 mg/dL [facility] Comment:Desirable LDL: less than 100 mg/dLNear Optimal/Above Optimal LDL: 110- 129 mg/dLBorderline High LDL: 130-159 mg/dLHigh LDL: 160-189 mg/dLVery High LDL: greater than or equal to 190 mg/dL HDL Cholesterol 46 >40 mg/dL [facility] Comment:Desirable HDL: great er than 40 mg/dL Note: This HDL assay may give artificially low results in patients with liver disease. 12/11/2024 3:02 PM EDT 12/11/2024 3:02 PM EDT us Paty Bowen MD LAB BLOOD ORDERABLES Final Result [facility] [address] [place] [phone] [phone] * US RENAL BI (12/11/2024 2:37 PM EDT) Anatomical Region Laterality Modality Abdomen Ultrasound 12/11/2024 2:37 PM EDT Narrative 12/11/2024 3:36 PM EDT ? [facility] ?[address] ?[place] [address] ? Ultrasound Report ? Signed ? Patient: Colon,Elizabeth ?MR#: [id number] ? : 1965 ?Acct:[id number] ? Age/Sex: 59 / F ?ADM Date: 12/11/24 ? Loc: HO.US ? Attending Dr: Paty Bowen MD ? Ordering Physician: Paty Bowen MD ?? Date of Service: 12/11/24 ?? Procedure(s): US renal BI ?? Accession Number(s): [id number] ? cc: Paty Bowen MD ? EXAMINATION: [...] DD/ 1437 ? TD/TT: 12/11/24 1444 ? Hydraulic Jack Operator: ? Procedure Note Greg, Yan - 12/11/[address] [address] Ultrasound Report Signed Patient: Sawyer Allan#: [id number] : 1965Acct:[id number] Age/Sex: 59 / FADM Date: 12/11/24 Loc: HO.US Attending Dr: Paty Bowen MD Ordering Physician: Paty Bowen MD Date of Service: 12/11/24 Procedure(s): US renal BI Accession Number(s): [id number] cc: Paty Bowen MD EXAMINATION: US RETROPERITONEAL [...] Jose Marcus MD 12/11/2024 03:34 PM EDT RP Dictated By: Jose Marcus MD Signed By: <Electronically signed by Jose Marcus MD in OV> 12/11/24 1534 DD/ 1437 TD/TT: 12/11/24 1444 Hydraulic Jack Operator: Paty Bowen MD IMG US PROCEDURES Final Re sult * Hepatitis Panel, General (09/18/2024 9:01 AM EST) Hepatitis A IgM Nonreactive Nonreactive [facility] Comment:IgM antibodies to OLIVER V not detected; does not exclude earlyacute or recovered HAV infection. ~Hepatitis B Surface Antibody REACTIVE Nonreactive [facility] Comment:REACTIVE: > 11.99 mI U/mL Hepatitis B Core Antibody Nonreactive Nonreactive [facility] Hepatitis C Antibody Nonreactive Nonreactive [facility] Comment:Antibodies to HCV no t detected; does not exclude early acuteHCV infection. Hepatitis B Surface Ag Negative Negative [facility] Blood Venous blood specimen / Unknown 09/18/2024 9:01 AM EST 09/18/2024 11:32 AM EST Paty Bowen MD LAB BLOOD ORDERABLES Final Result [facility] [address] [place] [phone] * Hemoglobin A1c (06/18/2024 11:53 AM EDT) Hemoglobin A1c 5.7 <6.0 % [facility] Comment:Hemoglobin A1C Refer ence Range Adults: 4.8 - 6.0 % Non diabetic: < 6.0 % Goal: < 7.0 %Additional Action Suggested: > 8.0 %Note: Hemoglobin A1c results are invalid for patients with abnormal amounts of HbF. Blood transfusions may impact the HbA1c concentration in the patient sample. Estimated Average Glucose 117 mg/dL [facility] Comment:eAG = Estimated ave rage glucose which is %A1C expressed asaverage glucose, using the formula of the F2D-VaazlqgOdrexqt Glucose study (ADAG), Diabetes Care, Vol.31,#8,Apr. 2007 Blood Venous blood specimen / Unknown 06/18/2024 11:53 AM EDT 06/18/2024 1:31 PM EDT Paty Bowen MD LAB BLOOD ORDERABLES Final Result Performing Organization Address [facility]/State/[facility] Co de Phone Number [facility] [address] [place] [address] [phone] * BI Mammogram Screening Tomosynthesis Bilateral (12/03/2023 3:15 PM EST) Anatomical Region Laterality Modality Breast Bilateral Mammography 12/03/2023 3:15 PM EST Narrative 12/18/2023 9:53 AM EDT ? [facility] [place] ? [address] ?[place] [address] ? Mammography Report ? Signed ? Patient: Colon,Elizabeth ?MR#: [id number] ? : 1965 ?Acct:[id number] ? Age/Sex: 58 / F ?ADM Date: 03/05/24 ? Loc: HO.MAMMO ? Attending Dr: Paty Bowen MD ? Ordering Physician: Paty Bowen MD ?Results: 1N ?? egative ? Date of Service: 12/03/23 ?Follow Up: 1 Year From Orig ?? inal Mammogram ? Procedure(s): MM tomosynthesis screening BI ?? Accession Number(s): [id number] ? cc: Paty Bowen MD ? EXAMINATION: [...] signed by Jose Marcus MD in OV> ?12/18/23 0949 ? DD/ 1515 ? TD/TT: ? Hydraulic Jack Operator: ? Procedure Note Donotsriter, Image - 12/18/2023 [facility] [address] [place] [address] Mammography Report Signed Patient: Elizabeth AllanMR#: [id number] : 1965Acct:[id number] Age/Sex: 58 / FADM Date: 12/03/23 Loc: HO.MAMMO Attending Dr: Paty Bowen MD Ordering Physician: Paty Bowen MDResults: 1N egative Date of Service: 12/03/23Follow Up: 1 Year From Orig inal Mammogram Procedure(s): MM tomosynthesis screening BI Accession Number(s): [id number] cc: Paty Bowen MD EXAMINATION: MM SCREENING [...] in OV> 12/18/23 0949 DD/ 1515 TD/TT: Hydraulic Jack Operator: Paty Bowen MD IMG BI PROCEDURES Final Re sult * HIV AB/AG (07/30/2022 11:19 AM EDT) HIV AB/AG Nonreactive Nonreactive [facility] Comment: HIV-1 p24 Ag and/or HIV-1/HIV-2 Ab [...] detection of this assay. ?? The [employer] HIV Ag/Ab Combo assay result and supplemental [...] HCV infection. 07/30/2022 11:1 9 AM EDT Historical Provider HISTORICAL/NON ORDERABLE LABS Final Result [facility] * THINPREP TIS PAP AND HPV mRNA E6/E7, CT/NG, TRICH (01/26/2022 11:42 AM EDT) Chlamydia trachomatis RNA, TMA, Urogenital NOT DETECTED NOT DETECTED [facility] Clinical Information: None given [facility] COMMENT SEE COMMENT [facility] Comment: The analytical performance characteristics of this assay, when used to test SurePath(TM) specimens have been determined by [employer]. The modifications have not been cleared or approved by the FDA. This assay has been validated pursuant to the CLIA regulations and is used for clinical purposes. ?? For additional information, please refer to https://Bedloo.Tactilize/faq/FZG122 (This link is being provided for information/ [...] has been evaluated with computer assisted technology. [facility] Lead Blender: SEE COMMENT [facility] Comment: LINDA EMERSON(ASCP) CT screening location: [address] ??[phone] HPV nRNA E6/E7 Not Detected Not Detected [facility] Comment: Methodology: Preform Plate Maker-Mediated Amplification This assay detects E6/E7 viral messenger RNA (mRNA) from 14 high-risk HPV types (16,18,31,33,35,39,45,51,52,56,58,59,66,68). ? The analytical performance characteristics of this assay have been determined by [employer]. The modifications have not been cleared or approved by the FDA. This assay has been validated pursuant to the CLIA regulations and is used for clinical purposes. ?? For additional information, please refer to http://Bedloo.Tactilize/faq/PCR099s6 (This link if provided for information/ educational purposes only.) Interpretation/Re sult: Negative for intraepithelial lesion or malignancy. [facility] LMP: NONE GIVEN [facility] Neisseria gonorrhoeae RNA, TMA, Urogenital NOT DETECTED NOT DETECTED [facility] Prev. BX: NONE GIVEN [facility] Prev. PAP: NONE [facility]IVEN [facility] SOURCE: None given [facility] Statement Of Adequacy: SEE COMMENT [facility] Comment: Satisfactory for evaluation. Endocervical/transformation zone component present. Age and/or menstrual status not provided Trichomonas vaginalis, QL, TMA, PAP Vial NOT DETECTED NOT DETECTED [facility] Comment: The analytical performance characteristics of this assay have been determined by [employer]. The modifications have not been cleared or approved by the FDA. This assay has been validated pursuant to the CLIA regulations and is used for clinical purposes. ?? For additional information, please refer to http://education.Tactilize/ faq/Trichomonastma (This link is being provided for information/ educational purposes only.) ?? 01/26/2022 11:4 2 AM EDT Paty Bowen MD LAB PATHOLOGY ORDERABLES F inal Result [facility] [address] * Colonoscopy (12/28/2020) Colonoscopy performed Historical Provider HEALTH MAINTENANCE Final Result from Last 3 Months or Most Recently Relevant to Health Maintenance Insurance [id number] Advance Directives Documents on File Type Date Recorded Patient Grinder Set Up Operator Surface Expl anation Advance Directives and Living Will 06/18/2024 Health Care Proxy 06/18/24 Care Teams Kitchen Assistant Relationship Specialty Start Date End Date Paty Bowen MD [address] [place] [phone] PCP - General Family Medicine 09/30/18 Mary Ann Gan, ChristopherD [address] [place] [phone] Pharmacist Internal Medicine 04/29/24 Karine Quinonez MD [address] [place] [address] 3rd [place] [address] Gastroenterology 10/06/24
--- OUTSIDE RECORDS SUMMARY | 2025-01-12 09:25 | XMS_ITS | Encounter Summary ---
Author Organization [employer] Address [address] [place] [address] [address] [place] [address] Care Team Providers Care Parking Meter Mechanic Name Role Phone Paty Bowen MD Primary Care Provider [phone] Mary Ann Gan PharmD Unavailable Karine Quinonez MD Unavailable [phone] Encounter Details Date Type Department Care Team ([facility] Contact Info) Description 01/28/2023 Orders Only [facility] [address] [place] [address] [phone] Paty Bowen MD [address] [place] [address] [phone] Social History Tobacco Use Types Packs/Day Years [...] Description 01/20/2025 2:00 PM EDT Medication Management [facility] [address] [place] [address] [phone] Mary Ann Gan, PharmD [address] [place] [address] documented as of this encounter Visit Diagnoses Not on filedocumented in this encounter Care Teams Parking Meter Mechanic Relationship Specialty Start Date End Date Paty Bowen MD [address] [place] [address] PCP - General Family Medicine 09/30/18 Mary Ann Gan, PharmD [address] [place] [phone] Pharmacist Internal Medicine 04/29/24 Karine Quinonez MD [address] [place] [address] 3rd [place] [address] Gastroenterology 10/06/24 documented as of this encounter
--- NOTE | 2025-01-12 09:33 | MHC.OFFVIS ---
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/atrial tachycardia Intake Note: New patient dx tachycardiac c/o heart racing Compressor Battery Pellets Required: No Allergies aspirin [ASA] Allergy (Severe, Verified 11/20/23 11:56) Anaphylaxis ibuprofen [IBUPROFEN] Allergy (Severe, Verified 11/20/23 11:56) ANAPHYLAXIS, throat swelling zolpidem [From AMBIEN] Allergy (Intermediate, Verified 11/20/23 11:56) RASH, HIVES Medication List - Last Reconciled 01/12/25 by Preston Montiel MD albuterol sulfate 90 mcg/actuation (ProAir HFA) 2 puffs inhalation Q4H PRN atenolol 25 mg PO DAILY bupropion HCl XL 150 mg PO QAM cholecalciferol (vitamin D3) (Vitamin D3) 25 mcg PO QAM clonazepam 1 mg PO BID PRN menthol-zinc oxide 0.44-20.6 % (Calmoseptine) 1 appl topical QID PRN mometasone-formoterol 200-5 mcg/actuation (Dulera) 2 puffs inhalation BID omeprazole 20 mg PO DAILY@0630 quetiapine 200 mg PO BEDTIME HPI Comments Details: The patient is a 59-year-old female presenting with palpitations and dyspnea. She describes a persistent issue with her heart beating very rapidly for the past six months, occurring mostly when attempting to engage in physical activities like walking. The patient reports that these episodes are nearly daily occurrences. There is an associated facial paresthesia, described as numbness and a sensation of needles on one side of her face. Despite these issues, the patient has no history of heart attacks, prior cardiac interventions, or heart rhythm abnormalities. Episodes of chest pain have been noted, yet they are not associated with any particular activity and can occur at rest. The patient has also experienced breathing difficulties occurring spontaneously without exertive triggers. The patient's medical history includes essential hypertension, and she affirms no history of diabetes. There is no recorded history of prior cardiac tests, heart monitoring, or specialist consultations in the provided history. Past Cardiac History Essential Hypertension Exercise -Type: Cardio - Duration & Frequency: Attempted regularly - Tolerance: Noted palpitations occur almost daily when trying to exercise - Associated symptoms: Rapid heart rate during exercise PFSH Medical History Anemia Asthma Supraumbilical hernia Abdominal pain Anxiety Depression HTN (hypertension) Epigastric pain Chronic diarrhea Surgical History History of esophagogastroduodenoscopy (EGD) Hx of colonoscopy History of carpal tunnel release of both wrists History of appendectomy H/O tubal ligation Family History Father Cancer Mother H/O: hysterectomy Daughter H/O: hysterectomy Paternal Grandfather Stomach cancer Social History Household Members: None Housing: Apartment Alcohol intake: former Comment: counts correct Patient Tobacco Use Status: Former Tobacco user service: No Current occupational status: unemployed and disabled Review of Systems Const Denies chills, Denies fatigue, Denies fever(s), Denies frequent falls, Denies weakness, Denies weight gain and Denies weight loss Eyes Denies loss of vision ENT Denies dizziness Card Denies chest pain, Denies leg edema, Denies lightheadedness, Denies palpitations, Denies dyspnea, Denies dyspnea on exertion, Denies orthopnea and Denies other (loss of consciousness) Resp Denies cough, Denies dyspnea, Denies dyspnea on exertion and Denies wheezing GI Denies hematochezia and Denies change in stool character Denies urinary frequency and Denies dysuria Musc Denies abnormal gait, Denies muscle weakness, Denies numbness, Denies radiating pain into limb and Denies tingling Skin/Breast Denies nail changes and Denies rash Neuro Denies abnormal gait, Denies dizziness, Denies frequent falls, Denies loss of vision, Denies memory loss, Denies numbness, Denies tingling and Denies weakness Psych Denies depression and Denies memory loss Endo Denies fatigue and Denies palpitations Christ/Lymph Reports easy bruising and Reports other (anemia) Aller/Immun Denies wheezing Physical Exam Vital Signs: Last Vital Signs Pulse 61 01/12/25 09:34 BP 120/80 01/12/25 09:34 BMI result Body Mass Index 27.1 Const General: comfortable and no acute distress Orientation/consciousness: patient oriented x3 HEENT Other: Unremarkable Head: Yes normal to inspection Neck Neck: Yes normal visual inspection Chest Chest palpation & inspection: normal inspection of the chest Resp Auscultation: clear to auscultation bilaterally Cardio Palpation: normal PMI Heart sounds: S1 normal heart sound present, S2 normal heart sound present, no gallops, no murmurs and no rubs GI Palpation (GI): Soft to palpation Back/Spine/Pelvis Other: unremarkable Skin General skin exam: no rashes or lesions noted Neuro General: patient oriented x3 Extrem General: Yes normal to inspection Psych Mental Status: mental status grossly normal Office Procedures EKG Details: EKG with underlying sinus rhythm at 61/Min; no significant ST-T changes and otherwise unremarkable[place] [id number], Complete Assessment & Plan Assessment & Plan (1) Heart palpitations: Code(s): R00.2 - Palpitations Category: Medical (2) Shortness of breath: Code(s): R06.02 - Shortness of breath Category: Medical Plan The plan includes implementing a heart monitor to observe the palpitations' frequency and nature and conducting a heart ultrasound to evaluate cardiac function. Ongoing management of essential hypertension is required. The aim is to identify and address any underlying cardiac issues causing her symptoms and coordinate these findings in a follow-up. Patient was informed and verbally consented to the use of an ambient scribe for clinic note documentation during this visit. Discussion NotesDuring the discussion, I highlighted the need to monitor the heart rhythm with a heart monitor and perform an echocardiogram to ensure thorough evaluation of the heart's pumping activity. I explained that these steps are crucial for diagnosing the underlying cause of the palpitations and associated symptoms. The patient was informed about the benefits and non-invasiveness of these procedures. We also discussed the importance of managing hypertension and ensuring regular follow-ups to monitor any changes in symptoms or new developments. Patient Instructions: - Undergo heart monitoring as advised - Schedule and complete an echocardiogram - Continue regular monitoring and management of blood pressure - Follow up for review of test results and further management - Seek immediate care if symptoms worsen or new symptoms develop Coding Level of Care Code New Pt Level 4 (56513) Diagnoses Heart palpitations R00.2 Shortness of breath R06.02 CPT Codes EKG - CPT: 61764-[id number], Complete ([id number])
[2025-01-12 09:34] VITALS: BP 120/80; PULSE 61; BMI 27.1
== END 2025-01-12 10:16 | disposition home or self-care (01) ==
LOC: HO.HCS 08:56
PROVIDERS: PCP Family Medicine; Visit Provider Internal Medicine
DX: R00.2 Palpitations (principal); R06.02 Shortness of breath
CPT/HCPCS: 93010; 99204

== ENCOUNTER → 2025-01-12 08:54 | Outpatient (BNVA) | payer MEDICAID, SELFPAY | PROVIDERS: PCP Family Medicine; Visit Provider Internal Medicine | DX: R00.2 Palpitations (principal); R06.02 Shortness of breath | CPT/HCPCS: 93005; 99202 ==

== ENCOUNTER → 2025-04-06 09:47 | Outpatient (REF) | payer MEDICAID, SELFPAY ==
--- NOTE | 2025-04-06 09:50 | HM_ITS ---
* Total monitoring time 2 days. * Underlying rhythm is sinus with an average rate of 89/Min. * Rare supraventricular ectopy. * Rare ventricular ectopy. * No significant pauses or high-grade AV blocks. * No patient markers or diary events. MTDD
--- OUTSIDE RECORDS SUMMARY | 2025-04-06 10:24 | XMS_ITS | Encounter Summary ---
Author Organization [employer] Address [address] [place] [address] [address] [place] [address] Care Team Providers Care Tombstone Setter Name Role Phone Paty Bowen MD Primary Care Provider [phone] Mary Ann Gan PharmD Unavailable Karine Quinonez MD Unavailable [phone] Preston Montiel MD Unavailable Encounter Details Date Type Department Care Team (Late Contact Info) Description 01/28/2023 Orders Only [facility] [address] [place] [id number] Paty Bowen MD [address] [place], [place] [id number] Social History Tobacco Use Types Packs/Day Years [...] Encounters Date Type Department Care Team (Late Contact Info) Description 04/20/2025 1:00 PM EDT Medication Management [facility] [address] [place] [address] Mary Ann Gan, PharmD [address] [place] [address] documented as of this encounter Visit Diagnoses Not on filedocumented in this encounter Care Teams Tombstone Setter Relationship Specialty Start Date End Date Paty Bowen MD [address] [place] [address] PCP - General Family Medicine 09/30/18 Mary Ann Gan, PharmD [address] [place] [phone] Pharmacist Internal Medicine 04/29/24 Karine Quinonez MD [address] [place] [address] Gastroenterology 10/06/24 Preston Montiel MD [address] [place] [address] [address] [place] [address] Cardiology 01/12/25 documented as of this encounter
== END ==
LOC: HO.CARD 09:47
PROVIDERS: PCP Family Medicine
DX: R00.2 Palpitations (principal)
CPT/HCPCS: 93225

== ENCOUNTER → 2025-04-06 09:50 | Outpatient (BNV) | payer MEDICAID, SELFPAY | PROVIDERS: PCP Family Medicine; Visit Provider Internal Medicine | DX: I47.10 Supraventricular tachycardia, unspecified (principal); I49.3 Ventricular premature depolarization | CPT/HCPCS: 93227 ==